=== PATIENT | male | born 1950 | race Caucasian/White ===

== ENCOUNTER → 2017-03-20 | Outpatient (CLI) | payer BC, OTHER ==
[~2017-03-20] MED LIST: ATOR-24; EZET10TA63; OXYC-106
--- NOTE | 2017-03-21 07:06 | PAP/PSG TECHNICIAN REPORT ---
[facility] Sales Service Supervisor Polysomnogram Report Study name: None Report date: 03/21/2017 Study date: 03/20/2017 Referring Physician: JULIANO LU III Name: Vesta LONGO Interpreting Physician: Marco A Howard M.D. Date of : 1950 Sales Service Supervisor: Dania Gutierrez PSGT. Sex: Male Age: 67 StudyType: PSG Weight: 189 lbs Height: 67 years, Height 5' 9.5" Neck Circum:17 inches BMI: 27.51 Medications: ZOLOFT 50 MG, LIPITOR 80 MG, VIT-D, RANITIDINE HCL 75 MG, ASPIRIN 81 MG, VIT.-B-12, FISH OIL, FLAX SEED OIL, MULTI-VIT. Patient History 66 YR. OLD MALE PRESENTS TO THE SLEEP LAB FOR A SPLIT NIGHT STUDY.THE FOLLOWING HAS BEEN PROVIDED: LESLEY VS REM SLEEP DISORDER VS PLMS, AND ANXIETY. ESS=16, NECK = 17 INCHES Parameters Monitored NPSG: E1-M2, E2-M1, Fp1-M2, Fp2-M1, F3-M2, F4-M2, F4-M1, C3-M2, C4-M2, C4-M1, O1-M2, O2-M2, O2-M1, T3-M2, T4-M1, P3-M2, P4-M1, CHIN1, CHIN2, HR, EKG, Legs, PFLOW, SNOR, FLOW, CFLOW, Tidal Volume, THOR, ABDO, SpO2, PLTH, CPRESS, ETCO2 Wave, ETCO2, pH Sleep Architecture Sleep Stages Time at Lights Off 10:57:55 PM STAGES Time (min.) TST (%) Time at Lights On 5:30:55 AM Wake 63.5 -- Total Recording Time (TRT) 393.00 min. N1 27.5 8 Total Sleep Period (TSP) 389.5 min. N2 278.5 85 Total Sleep Time (TST) 328.5min. N3 0.0 0 Awake Time 64.0 min. REM 22.5 7 Wake after Sleep Onset 61.0 min. Sleep Efficiency (SE) 84 % Sleep Onset Latency (FLAKITA) 3.5 min. Number of Stage 1 Shifts None Awakenings 16 Stage Changes 56 Number of REM periods 6 REM 22.5 7 REM Latency 228.0 min. NREM 306.0 93 Body Position Analysis Supine Right Left Side Prone Vertical Total Sleep Time (min.) 203.7 54.4 105.6 159.96 0.0 0.0 Total Sleep Time (%) 51% 17% 32% 49 0% N/A% Total Sleep Time REM (min.) 2.5 17.5 2.5 None 0.0 0.0 Total Sleep Time NREM (min.) 166.0 36.9 103.1 None 0.0 0.0 Intermittent Wake (min.) 35.2 14.7 13.6 None 0.0 0.0 Total Sleep Period (%) 52% None None None None None Arousals Myoclonus (PLM) * Events Count Index Events Count Index Spontaneous 143 26 Events Awake (PLMW) 1 0.9 Respiratory 3 0.5 Events Asleep w/ Arousal (PLMA) 134 24.5 PLM 134 24 Events Asleep w/o Arousal (PLMS) 686 125.3 Snoring 17 3 Total Asleep 820 149.8 Total 297 54 Total 821 126 Respiratory Analysis * CA OA MA CH H RERA Total Count 0 0 0 0 5 23 5 Index 0.0 0.0 0.0 0 0.9 4 5.1 Mean Duration 0.0 0.0 0.0 0.00 13.3 15.4 15.0 Longest Duration 0.0 0.0 0.0 0.00 0.0 20.4 20.4 Respiratory Event Summary Total Supine ~Supine Right Left Prone REM NREM Apneas Count 0 0 0 0 0 N/A 0 0 Index 0.0 0 0 0.0 0.0 N/A 0 0 Hypopneas (4% Desat) Count 5 3 2 1 1 N/A 0 5 Index 0.9 1.1 1 1.1 0.6 N/A 0.0 1.0 Apneas & All Hypopneas Count 5 3 2 1 1 N/A 0 5 Index 0.9 1 1 1 1 N/A 0.0 1.0 Respiratory Events (Client Portfolio Manager+All Hyp+RERA) Count 5 7 21 4 17 N/A 0 5 Index 5.1 2 8 4.4 9.7 N/A 8.0 4.9 Respiratory Related Arousal Count 3 7 3 0 3 N/A 1 2 Index 0.5 0 1 0 2 N/A 3 0 Snoring Analysis Supine Right Left Prone REM NREM Total Snore duration 16.3 min Snores count 193 181 149 N/A 70 453 523 Snore mean duration 1.9 Sec Snores index 69 200 85 N/A 186.7 88.8 95.5 TST with snoring (%) 4.9% SpO2 Analysis Total REM NREM Awake <50% 0.0 min. 0.0 min. 0.0 min. 0.0 min. 51 - 60% 0.0 min. 0.0 min. 0.0 min. 0.0 min. 61 - 70% 0.0 min. 0.0 min. 0.0 min. 0.0 min. 71 - 80% 0.0 min. 0.0 min. 0.0 min. 0.0 min. 81 - 90% 0.7 min. 0.2 min. 0.3 min. 0.1 min. 91 - 100% 390.8 min. 22.3 min. 305.3 min. 63.3 min. Average 94 94 94 94 Minimum SpO2 90 90 90 90 Desaturation Event Index 1.8 10.7 1.6 0.0 # Desat. Events below 89% N/A N/A N/A N/A Time(%) with Saturation below 89% 0.0 0.0 0.0 0.0 Time(min.) with Saturation below 89% 0.0 0.0 0.0 0.0 Heart Rate Analysis End Tidal CO2 Analysis Min (bpm) Max (bpm) Average (bpm) TSP (mins) % of TSP Awake 45 68 50 Above 55 mmHg 0.0 0.0 NREM 30 70 49 50-55 mmHg 0.0 0.0 REM 46 58 49 45-50 mmHg 328.2 99.9 Overall 30 70 49 40-45 mmHg 0.0 0.0 35-40 mmHg 0.0 0.0 30-35 mmHg 0.0 0.0 Average ETCO2 0.0 Supplemental O2 Values Minimum O2 level: None Value Start Time End Time Sales Service Supervisor Comments PSG Study MR. Longo slept in the right, left, and supine positions. Cardiac arrhythmia and PLM's noted. No bruxism noted. Snoring was noted and scored as a 4 on a scale of 1 through 5. (0=no snoring, 5=snoring loud enough to be heard through a closed door or down the boo way) Mr. Longo awoke to use the restroom zero times during the night. Mr. Longo stated, I did not sleep as well as I do when I am in my own bed. The final report will be interpreted and signed by a sleep physician. The completed physician report will then be placed in the patient medical record. Pt. had fragmented sleep, many leg movements with arousals were displayed. Arm and leg movements seen in Rem. Pt. had a cardiac event starting in epic 753 through 756, PVC'S with a low heart rate was displayed. (see print outs in chart.) NO Yehuda's where done do to pt. removing his hearing aids. Therapy (cm H2O) 0 TIB (min.) 392.0 TST (min.) 328.5 Sleep Onset (min.) 3.5 REM Onset From Sleep (min.) 228.0 Sleep Efficiency % 84 Wakefulness (%) 16 Wakefulness (min.) 64.0 NREM 1 (%) 8 NREM 1 (min.) 27.5 NREM 2 (%) 85 NREM 2 (min.) 278.5 NREM 3 (%) 0 NREM 3 (min.) 0.0 REM (%) 7 REM (min.) 22.5 # Arousals 297 Arousal Index 54 # Snore 523 Snore Index 95.5 AHI 0.9 AHI Supine 1 AHI Non-Supine 1 NREM AHI 1.0 REM AHI 0.0 RDI 5.1 # Obstructive Apnea 0 # Central Apnea 0 # Mixed Apnea 0 # Hypopneas 5 RERAs 23 Total Respiratory Events 28 Time Below SpO2 89% (min.) 0.0 Mean NREM SpO2 (%) 94 Mean REM SpO2 (%) 94 Mean Sleep SpO2 (%) 94 Min NREM SpO2 (%) 90 Min REM SpO2 (%) 90 Position Supine (min.) 203.7 Position Non-supine (min.) 160.0 LM Index Sleep 149.8 LM Index NREM 147.3 LM Index REM 184.0 Mean Heart Rate (bpm) 49 Min Heart Rate (bpm) 30
--- NOTE | 2017-04-02 09:50 | POLYSOMNOGRAPH REPORT ---
REFERRING PERSON: Dr. John Howard. VICE PRESIDENT OF ENGINEERING: Reanna Gutierrez. Mr. Naylor is a 67-year-old male sent for a possible split night sleep study. He has dream enactment behaviors, periodic limb movements during sleep, some anxiety and possible obstructive sleep apnea. His [place] sleepiness scale score on the evening of this study is 16. BMI is 27.51. Following the technical and digital specifications of the [place] [employer] (AASM) a standard diagnostic polysomnogram was performed monitoring EEG, EOG, EMG (chin and leg deviations), oxygen saturation, body position, digital video, respiratory effort and airflow. The sleep Stage and event scoring was based on the AASM Manual for the Scoring of Sleep and Associated Events 2007 edition. Apneas are defined as a drop in the peak thermal sensor excursion by >90% of baseline for at least 10 seconds. Hypopneas were scored using the 4% oxygen desaturation rule (4A-Medic[employer]) and a decrease in the nasal pressure excursions by >30% of baseline for at least 10 seconds. Respiratory effort-related arousal (RERA's) is defined as a sequence of breaths lasting at least 10 seconds characterized by increasing respiratory effort or flattening of the nasal pressure waveform leading to an arousal from sleep when the sequence of breaths does not meet criteria for an apnea or hypopnea. Apnea Hypopnea index (AHI) is defined as the number of apneas and hypopneas occurring in an hour of sleep. Respiratory disturbance index (RDI) is defined as the number of apneas, hypopneas, and RERA's occurring in an hour of sleep. Mr. Naylor's total sleep period time was 389.5 minutes. Total sleep time was 328.5 minutes. Sleep efficiency was 84%. Latency to sleep onset was 3.5 minutes with wake after sleep onset of 61 minutes. Total non-REM sleep time was 306 minutes. He spent 8% of that time in N1 sleep, 85% in N2 sleep and no time in N3 sleep. REM latency was 228 minutes. Total REM sleep time was 22.5 minutes or 7% of total sleep time. There were 297 cortical arousals from sleep. 143 of these arousals were spontaneous, 3 were due to respiratory events, 134 were due to periodic limb movements and 17 were due to snoring. There were 820 periodic limb movements. Limb movement index was 149.8. Limb movement with arousal index was elevated at 24.5. There were no central obstructive or mixed apneas on this test. There were 5 hypopneas and 23 RERA. Apnea-hypopnea index was normal at 0.9. RDI was 5.1. This patient may have an element of upper airway resistance syndrome. There were 523 snoring events recorded. Total sleep time with snoring was 4.9%. Mean saturation was 94% with desaturations to 90%. Saturations were less than 89 for no time on this study. Loud snoring was heard by the coating technician on this test. PVCs were noted on EKG monitoring. Heart rates ranged from a low of 30 beats per minute to a high of 70 beats per minute during sleep. End-tidal CO2 data suggests that in the entire duration of this study, Mr. Evangelistas end-tidal CO2 was between 45 and 50 mmHg. IMPRESSION AND PLAN: A 67-year-old male without evidence of sleep apnea or nocturnal hypoxemia. He does not have bruxism or parasomnia noted. He does have periodic limb movements of sleep with an elevated arousal index. This patient may benefit from treatment of this periodic limb movements. This may improve his sleep quality and hypersomnia. Clinical correlation is needed. SUSANA
== END | disposition home or self-care (01) ==
LOC: C.NEUR 21:00
PROVIDERS: ATTEND Family Medicine
DX: F51.5 Nightmare disorder (principal); R06.83 Snoring; G47.10 Hypersomnia, unspecified; G25.81 Restless legs syndrome; G47.30 Sleep apnea, unspecified

== ENCOUNTER → 2017-12-17 | Outpatient (CLI) | payer OTHER ==
[~2017-12-17] MED LIST changes: -ATOR-24; +ATOR-24 PO; +CHOL1000 PO; +CYAN100073 PO; -EZET10TA63; +FLAX1CAP11 PO; +GADAVIST IV PRN; +MELA1TAB22 PO; +MULT-506 PO; +OMEG10007 PO; -OXYC-106; +RANITAB33 PO; +SERT50TA PO
--- NOTE | 2017-12-17 08:47 | DIAGNOSTIC IMAGING REPORT ---
PROSTATE MRI COMBO CLINICAL HISTORY: 67 years-old Male presenting with PROSTATE CANCER. Patient presents with increased PSA levels. History of prostate cancer with prostatectomy in 2006. TECHNIQUE: Multisequence, multiplanar MR imaging of the prostate was performed before and after the administration of intravenous contrast. Additional postprocessing was performed on a separate [employer] workstation by the radiologist for 3-D volumetric segmentation of the prostate and contouring of region(s) of interest (JUAN ANTONIO) for targeting. IV contrast: 8.5 mL. COMPARISON: None. FINDINGS: Exam is mildly motion degraded. Prostate: Surgically absent. No suspicious mass lesions, enhancement or restricted diffusion seen within the operative bed. Suspicious lesion(s) described below: No suspicious mass lesions identified. Seminal vesicles normal. Bladder: Bladder wall thickening likely indicating chronic outlet obstruction. Bowel: Diverticulosis of the sigmoid colon. Peritoneum: No free fluid in the pelvis. Lymph nodes: No lymphadenopathy in the visualized portion of the pelvis. Vasculature: Iliac vessels patent. Abdominal wall: Normal. Osseous structures: Normal bone marrow signal intensity. IMPRESSION: 1. Prior prostatectomy. No suspicious findings identified within the operative bed to suggest residual or recurrent disease. 2. No pelvic adenopathy identified. 3. Circumferential wall thickening of the bladder with trabeculation suggests sequela of chronic bladder outlet obstruction. 4. Sigmoid colon diverticulosis. Electronically signed by: Isaac Lopez M.D. 12/17/2017 8:46 AM Dictated Date/Time: 12/17/2017 8:33 AM
== END | disposition home or self-care (01) ==
LOC: C.MRIBC 06:46
PROVIDERS: ATTEND Physician Assistant Medical
DX: C61 Malignant neoplasm of prostate (principal); Z90.79 Acquired absence of other genital organ(s); K57.90 Diverticulosis of intestine, part unspecified, without perforation or abscess without bleeding

== ENCOUNTER 2022-10-03 08:36 | Inpatient (IN) ==
--- NOTE | 2022-08-27 20:52 | PAT Medication Instructions ---
Medication Instructions Date of Service August 27, 2022 Home Medications famotidine 20 mg tablet (Acid Honing Machine Set Up Operator (famotidine)) 20 mg PO BID psyllium husk (with sugar) 3.4 gram/7 gram oral powder (Daily Fiber (psyllium- sucrose)) 1 tbsp PO QAM ropinirole 0.5 mg tablet 0.5 mg PO HS aspirin 81 mg capsule 81 mg PO QAM atorvastatin 80 mg tablet 80 mg PO QAM cholecalciferol (vitamin D3) 25 mcg (1,000 unit) tablet (Vitamin D3) 25 mcg PO QAM cyanocobalamin (vitamin B-12) 2,500 mcg sublingual tablet (Vitamin B-12) 2,500 mcg sublingual QAM ezetimibe 10 mg tablet 10 mg PO QAM multivitamin 1 tab PO QAM omega-3 fatty acids-vitamin E 1,000 mg capsule 1 cap PO QAM sertraline 100 mg tablet 100 mg PO QAM ASK your prescriber and surgeon aspirin 81 mg capsule 81 mg PO QAM STOP taking 2 weeks before surgery (or as soon as possible if surgery is within 2 weeks) omega-3 fatty acids-vitamin E 1,000 mg capsule 1 cap PO QAM DO NOT take the morning of surgery psyllium husk (with sugar) 3.4 gram/7 gram oral powder (Daily Fiber (psyllium- sucrose)) 1 tbsp PO QAM cholecalciferol (vitamin D3) 25 mcg (1,000 unit) tablet (Vitamin D3) 25 mcg PO QAM cyanocobalamin (vitamin B-12) 2,500 mcg sublingual tablet (Vitamin B-12) 2,500 mcg sublingual QAM multivitamin 1 tab PO QAM Take morning of surgery With a small sip of water, OTHERWISE NOTHING TO EAT OR DRINK AFTER MIDNIGHT: famotidine 20 mg tablet (Acid Honing Machine Set Up Operator (famotidine)) 20 mg PO BID atorvastatin 80 mg tablet 80 mg PO QAM ezetimibe 10 mg tablet 10 mg PO QAM sertraline 100 mg tablet 100 mg PO QAM Take evening before surgery famotidine 20 mg tablet (Acid Honing Machine Set Up Operator (famotidine)) 20 mg PO BID ropinirole 0.5 mg tablet 0.5 mg PO HS Other Notes If you have any questions please call us at [phone] or [phone] or [phone] or [phone]
--- NOTE | 2022-09-02 13:40 | Anesthesiology Consultation ---
Date of Service September 02, 2022 Assessment & Plan (1) Encounter for pre-operative examination: Chart Review Chart Review: Acceptable Risk for Surgery (pending PCP clearance (09/13/22)) and Patient seen in Pre Admission Testing - Awaiting PCP clearance 09/13/22 Per PAT appt on 09/02/22, patient denies any recent travel or large group activities. Pt is vaccinated for Covid. Will leave to surgeon's discretion if preop Covid testing needed. Educated on importance of using Covid precautions one week prior to surgery History Surgery Operation Date: 10/03/22 10:05 Proposed Procedures p L3-S1 Decompression and Fusion, Spinal Cord Monitoring - [employer], Height/Weight Height: 5 ft 8 in Weight: 83.7 kg Allergies Allergy/AdvReac Type Severity Reaction Status Date / Time No Known Allergies Allergy Mild Verified 08/27/22 12:54 Medications Home Medications Medication Instructions Recorded Confirmed Last Taken famotidine 20 mg tablet (Acid 20 mg PO BID 10/23/21 08/27/22 Unknown Geriatric Nurse (famotidine)) psyllium husk (with sugar) 3.4 1 tbsp PO QAM 10/23/21 08/27/22 Unknown gram/7 gram oral powder (Daily Fiber (psyllium-sucrose)) ropinirole 0.5 mg tablet 0.5 mg PO HS 10/23/21 08/27/22 Unknown aspirin 81 mg capsule 81 mg PO QAM 08/27/22 08/27/22 Unknown atorvastatin 80 mg tablet 80 mg PO QAM 08/27/22 08/27/22 Unknown cholecalciferol (vitamin D3) 25 25 mcg PO QAM 08/27/22 08/27/22 Unknown mcg (1,000 unit) tablet (Vitamin D3) cyanocobalamin (vitamin B-12) 2,500 mcg sublingual QAM 08/27/22 08/27/22 Unknown 2,500 mcg sublingual tablet (Vitamin B-12) ezetimibe 10 mg tablet 10 mg PO QAM 08/27/22 08/27/22 Unknown multivitamin 1 tab PO QAM 08/27/22 08/27/22 Unknown omega-3 fatty acids-vitamin E 1 cap PO QAM 08/27/22 08/27/22 Unknown 1,000 mg capsule sertraline 100 mg tablet 100 mg PO QAM 08/27/22 08/27/22 Unknown Past Medical History Medical History Anxiety and depression GERD (gastroesophageal reflux disease) Well controlled and stable History of chronic back pain History of prostate cancer 2006, s/p prostatectomy S/p radiation tx. (38 treatments) (2018) History of restless legs syndrome Stable Hx of hearing loss Wears bilat. hearing aids Hyperlipemia Exercise / Class Metabolic Activity II 4-5 Yardwork/Stairs/Walk up hill (one flight of stairs - no chest pain or SOB ) Past Surgical History Surgical History History of back surgery upper back and neck C4-C7, 10/2016; lower back 11/1989 History of prostatectomy 12/2006 Hx of colonoscopy Hx of repair of left rotator cuff 10/2017 Hx of vasectomy Past Anesthesia History No Hx of Anesthesia Complications and No Family Hx of Anesthesia Complications History of PONV No Hx of PONV and No Hx of Motion Sickness Social History Smoking Status: Never smoker Do You Dip or Chew Tobacco: No Hx Alcohol Use: Yes Alcohol type: wine alcohol intake frequency: holidays/special occasions only Hx Substance Use: No substance use type: does not use Review of Systems Patient denies chest pain, shortness of breath, dyspnea on exertion, cough, wheezing, palpitations. No hx of seizures, stroke, OH, apnea/snoring. No hx of blood clots or blood transfusions Physical Exam Vital Signs VITALS BP 145/75 P 53 TEMP 97.8 SP02 97% RESP 16 Constitutional no acute distress ENMT Mouth: no TMJ clicking Thyromental Distance: > or= 3.5 Finger Breadths (3.5) Mallampati Class: I Missing molars Neck + limited neck extension (significant ) Respiratory normal respiratory effort; no respiratory distress Auscultation: lungs clear to auscultation bilaterally; no wheezes Cardiovascular Rate/Rhythm: regular rate and regular rhythm Heart Sounds: no murmur Vessels: no carotid bruit Musculoskeletal Spine: no pain with cervical ROM Extremities: extremities normal to inspection Psychiatric Orientation: alert Lab Results Anesthesia Preop Results Results Anesthesia Widget: WBC 6.38 K/ul (4.8-10.8) 09/02/22 Hgb 14.9 g/dl (14.0-18.0) 09/02/22 Hct 43.0 % (40.1-51.0) 09/02/22 Plt 278 K/uL (130-400) 09/02/22 Na 138 mmol/L (136-145) 09/02/22 K 3.9 mmol/L (3.5-5.1) 09/02/22 Cl 105 mmol/L (98-107) 09/02/22 CO2 27 mmol/L (21-32) 09/02/22 BUN 16 mg/dl (6-23) 09/02/22 Creat 1.03 mg/dl (0.6-1.4) 09/02/22 Glucose Level 86 mg/dl (70-99(Fasting)) 09/02/22 PT 11.0 Seconds (9.0-12.0) 09/02/22 PTT 30.2 Seconds (21.0-31.0) 09/02/22 INR 1.0 (0.9-1.1) 09/02/22 Urine Color Yellow 09/02/22 Urine Appearance Clear (Clear) 09/02/22 Urine pH 5.0 (4.5-7.5) 09/02/22 Urine Specific [place] 1.007 (1.000-1.030) 09/02/22 Urine Protein Negative (Negative) 09/02/22 Urine Glucose (UA) Negative (Negative) 09/02/22 Urine Ketones Negative (Negative) 09/02/22 Urine Blood Negative (Negative) 09/02/22 Urine Nitrite Negative (Negative) 09/02/22 Urine Bilirubin Negative (Negative) 09/02/22 Urine Urobilinogen Negative (Negative) 09/02/22 Urine Leukocyte Esterase Negative (Negative) 09/02/22 Blood Type A Positive 09/02/22 Antibody Screen NEGATIVE 09/02/22 Testing Electrocardiogram Date: 09/02/22 Findings: + SB @ (50bpm) Rightward axis Chest X-Ray Date: 09/02/22 Findings: + NAD COVID-19 Risk Screen Screening Information COVID-19 Screen Date: 09/02/22 Exposure 21 Days Family/Household +COVID Last 21 Days: No Exposure 10 Days Any COVID Exposure Last 10 Days: No Symptoms Last 10 Days Experienced COVID Sx Last 10 Days: No + COVID 0-90 Days COVID + in Last 0-90 Days: No Risk Plan COVID Risk Plan: No Risk Identified Patient Education COVID Preop Screening Education Complete: Yes
[~2022-10-03 08:36] MED LIST changes: +ACETAMINOPHEN 500 MG TAB PO SCH; -ATOR-24 PO; -CHOL1000 PO; -CYAN100073 PO; +CeleBREX 200 MG CAP PO SCH; -FLAX1CAP11 PO; +GABAPENTIN 300 MG CAP PO SCH; -GADAVIST IV PRN; +LR 15ML/HR IV SCH; -MELA1TAB22 PO; -MULT-506 PO; -OMEG10007 PO; -RANITAB33 PO; -SERT50TA PO; +ceFAZolin 2000MG 2,000 MG/15 ML SYR IV SCH
[2022-10-03] MEDS ORDERED: ROCURONIUM BROMIDE 10 MG/ML 5 ML VIAL IV ONE ×6 (09:11→12:36)
[2022-10-03] MEDS ORDERED: ONDANSETRON INJ 2 MG/ML 2 ML VIAL ONE (09:11)
[2022-10-03] MEDS ORDERED: DEXAMETHASONE SOD INJ 4 MG/ML VIAL ONE (09:11)
[2022-10-03] MEDS ORDERED: PROPOFOL IV EMULSION 10 MG/ML 20 ML VIAL IV ONE ×2 (09:11→11:50)
[2022-10-03] MEDS ORDERED: LIDOCAINE 2% MPF LOCAL 5 ML VIAL INFIL ONE (09:11)
--- NOTE | 2022-10-03 09:43 | History & Physical Bridge Note ---
Date of Service October 03, 2022 History & Physical Bridge Note I have examined the patient, reviewed the History & Physical and in the interval since the performance of the History & Physical I have noted the following changes of clinical significance: no changes noted
--- NOTE | 2022-10-03 09:44 | History & Physical Report ---
Date of Service October 03, 2022 Assessment & Plan (1) Neurogenic claudication due to lumbar spinal stenosis: Plan: L3-S1 decompression and fusion History of Present Illness Chief Complaint: Back and leg pain Primary Care Provider: Kyree Theodore MD This is a 72-year-old male who presents with current persistent back and leg pain. Failed extensive course of nonoperative care is here for surgical invention. Allergies Allergy/AdvReac Type Severity Reaction Status Date / Time No Known Allergies Allergy Mild Verified 10/03/22 09:18 Home Medications Medication Instructions Recorded Confirmed Type famotidine 20 mg tablet (Acid 20 mg PO BID 10/23/21 10/03/22 History Salesforce Specialist (famotidine)) psyllium husk (with sugar) 3.4 1 tbsp PO QAM 10/23/21 10/03/22 History gram/7 gram oral powder (Daily Fiber (psyllium-sucrose)) ropinirole 0.5 mg tablet 0.5 mg PO HS 10/23/21 10/03/22 History aspirin 81 mg capsule 81 mg PO QAM 08/27/22 10/03/22 History atorvastatin 80 mg tablet 80 mg PO QAM 08/27/22 10/03/22 History cholecalciferol (vitamin D3) 25 25 mcg PO QAM 08/27/22 10/03/22 History mcg (1,000 unit) tablet (Vitamin D3) cyanocobalamin (vitamin B-12) 2,500 mcg sublingual QAM 08/27/22 10/03/22 History 2,500 mcg sublingual tablet (Vitamin B-12) ezetimibe 10 mg tablet 10 mg PO QAM 08/27/22 10/03/22 History multivitamin 1 tab PO QAM 08/27/22 10/03/22 History omega-3 fatty acids-vitamin E 1 cap PO QAM 08/27/22 10/03/22 History 1,000 mg capsule sertraline 100 mg tablet 100 mg PO QAM 08/27/22 10/03/22 History Past Med/Surg History Medical History Anxiety and depression GERD (gastroesophageal reflux disease) Well controlled and stable History of chronic back pain History of prostate cancer 2007, s/p prostatectomy S/p radiation tx. (38 treatments) (2018) History of restless legs syndrome Stable Hx of hearing loss Wears bilat. hearing aids Hyperlipemia Surgical History History of back surgery upper back and neck C4-C7, 10/2016; lower back 11/1989 History of prostatectomy 12/2006 Hx of colonoscopy Hx of repair of left rotator cuff 10/2017 Hx of vasectomy Social History Smoking Status: Never smoker Second Hand Exposure: No; Do You Dip or Chew Tobacco: No; Tobacco Cessation Education Requested by Patient: No Hx Alcohol Use: Yes Alcohol type: wine Hx Substance Use: No Preferred Language: Malawian Communication Ability: Effective Shooter'S Helper Required: No Beliefs That Will Affect Care: None Current Living Situation: Spouse Other Information That Helps Us Care for You: No Feels Safe at Home: Yes Safety Concerns: Feels Safe At This Time Assistive Devices: Glasses and Hearing Aid - Bilateral Physical Exam Physical Exam: Patient is alert and oriented Heart regular rhythm Lungs clear Results & Data Results & Data ([facility]) Vital Signs (Past 12 Hours) Vital Signs Temp Pulse Resp BP Pulse Ox O2 Del Method 10/03/22 09:15 36.8 C 59 L 20 141/85 H 97 Room Air
[2022-10-03] MEDS ORDERED: fentaNYL citrate 100 MCG/2 ML VIAL IV PRN (09:46)
[2022-10-03] MEDS ORDERED: ATROPINE SULFATE 0.1 MG/ML 10ML SYR IV PRN (09:46)
[2022-10-03] MEDS ORDERED: ONDANSETRON INJ 2 MG/ML 2 ML VIAL IV PRN ×2 (09:46→15:25)
[2022-10-03] MEDS ORDERED: ePHEDrine sulfate 50 MG/ML AMP IV PRN (09:46)
[2022-10-03] MEDS ORDERED: ceFAZolin 330 MG/ML 1 GM VIAL ONE (09:55)
[2022-10-03] MEDS ORDERED: BUPIVACAINE/EPINEPHRINE 0.25% 1:200,000 30 ML VIAL ONE (09:56)
[2022-10-03] MEDS ORDERED: MIDAZOLAM HCL 1 MG/ML 2ML VIAL ONE (10:02)
[2022-10-03] MEDS ORDERED: fentaNYL citrate 100 MCG/2 ML VIAL ONE (10:02)
[2022-10-03] MEDS ORDERED: PHENYLEPHRINE HCL 10 MG/ML VIAL ONE (10:32)
[2022-10-03] MEDS ORDERED: FLOSEAL HEMOSTATIC MATRIX 10ML TOP ONE (10:51)
[2022-10-03] MEDS ORDERED: KETOROLAC 30 MG/ML VIAL ONE (12:06)
[2022-10-03] MEDS ORDERED: ARTIFICIAL TEARS OP OINT 3.5 GM TUBE ONE ×2 (12:06)
[2022-10-03] MEDS ORDERED: GLYCOPYRROLATE 0.2 MG/ML VIAL ONE ×2 (13:20)
--- NOTE | 2022-10-03 13:33 | Operative Report ---
Post Operative Report Pre & Post Diagnosis Operation Date: 10/03/22 10:05 Pre-Op Diagnosis: Lumbar spinal stenosis with neurogenic claudication and spondylolisthesis Post-Op Diagnosis: Same I identified the patient and participated in the time-out.: Yes Procedure Operation Date: 10/03/22 10:05 Actual Procedures #1 revision lumbar decompression bilateral medial facetectomies and foraminotomies L2-L3, L3-L4, L4-5 and L5-S1. #2 posterior spinal fusion L3-S1. #3 placement posterior segmental instrumentation L3-S1. #4 interbody fusion L3- L4, L4-5 and L5-S1. #5 placement of Spira 13 x 26 mm cage at L3-L4, 15 x 26 mm cage at L4-L5 and 11 x 26 mm cage at L5-S1. #6 placement locally harvested morselized autograft and posterior gutters. #7 placement of I factor combined with V toss interbody space and posterior lateral gutters. Surgeon Fareed Gaming, DO Soccer Commentator None Estimated Blood Loss 250 Findings Consistent with Post-Op Diagnosis Specimens None Indications This is a 72-year-old male who presents above-mentioned diagnosis after failing course of nonoperative care is here for the procedure. Description of Procedure Patient met with identified informed consent obtained. Patient was then taken to the operative suite underwent a patient placed in a prone position on the Jesus table on top Tang frame. All bony prominences well-padded eyes inspected to ensure no external pressure placed upon them. This point the lumbar spine was prepped and draped no sterile fashion. Sharp dissection with the assistance of Bovie cautery performed down to and exposing the remaining lamina transverse processes of L3-L4-L5 and sacral ala bilaterally. From caudal to cephalad fashion revision complete laminectomy of L5 L4 L3 and partial laminectomy of L2 was performed including bilateral medial facetectomies and foraminotomies addressing severe spinal stenosis. Pedicle screws were then placed in L3-L4-L5 and S1 levels bilaterally with assistance of fluoroscopy and appropriately sized leif placed. By way of a transforaminal approach and left complete discectomy of L5-S1 was performed endplates curetted to subcortical bleeding bone and 11 x 26 mm spiral cage filled with I factor tapped in position. Then proceeded to L4-L5 and again by way of a transfemoral approach and right complete discectomy performed endplates curetted to subcortically bone and a 15 x 26 mm spiral cage with I factor tapped in position. Lastly proceeded to L3-L4 and again by way of a transfemoral approach and right complete discectomy performed endplates curetted to subcortical any bone and a 13 x 26 mm spiral cage with I factor tapped in position. The rods were then locked in final position bilaterally. The transverse processes of L3-L4-L5 and sacral ala burred to subcortical bleeding bone. I factor model V testing locally harvested morselized autograft was placed in the posterior gutters. 15 round ALBERTO drain inserted. The incision was then closed with 1 Vicryl the fascia 2-0 Vicryl subcutaneously and 4 Monocryl for final skin closure. Steri-Strips dressings placed. Patient waken taken to PACU stable condition. Please note spinal cord monitoring was utilized throughout the procedure no changes noted. I attest to the content of the Intraoperative Record and any orders documented therein. Any exceptions are noted below.
--- NOTE | 2022-10-03 13:59 | Fluoroscopy Report ---
FL lumbar spine 2-3V CLINICAL HISTORY: L3-S1 DECOMPRESSION AND FUSION TECHNIQUE: 3 views were obtained with the C-arm in the OR with the above procedure. Total fluoroscopy time was 34 seconds. Radiation dose was 26.6 mGy. Comparison: None available at the time of this dictation. FINDINGS/IMPRESSION: Intraoperative images were obtained of decompression and fusion spanning L3-S1. Please correlate with intraoperative fluoroscopy and operative report. ACT 112: Negative or not required by law. Electronically signed by: Krunal Ashley M.D. 10/03/2022 1:58 PM
--- NOTE | 2022-10-03 15:13 | Anesthesiology Progress Note ---
Date of Service October 03, 2022 Anesthesia Post Procedure Vital Signs Vital Signs: Temp Pulse Resp BP Pulse Ox O2 Del Method O2 Flow Rate 10/03/22 14:00 68 12 104/87 99 Oxymask 6 10/03/22 14:40 83 20 90/52 L 95 Nasal Cannula 2 10/03/22 14:30 72 20 92/51 L 95 Nasal Cannula 2 10/03/22 14:20 97.7 F 65 20 94/52 L 96 Nasal Cannula 2 10/03/22 14:10 64 20 97/59 L 96 Oxymask 2 10/03/22 13:50 76 12 109/60 100 Oxymask 6 10/03/22 13:47 96.8 F L 83 12 90/61 L 100 Oxymask 6 10/03/22 09:15 98.2 F 59 L 20 141/85 H 97 Room Air Pain Intensity Lower Back: Pain Intensity: 2 Transfer of Care Handoff Completed per policy Notes Mental Status: alert / awake / arousable and participated in evaluation Patient Amnestic to Procedure: Yes Nausea / Vomiting: adequately controlled Pain: adequately controlled Airway Patency, RR, SpO2: stable & adequate BP & HR: stable & adequate Hydration State: stable & adequate Anesthetic Complications: no major complications apparent and Pt Satisfied with anesthetic care
[2022-10-03] MEDS ORDERED: ONDANSETRON 4 MG OD TAB PO PRN (15:25)
[2022-10-03] MEDS ORDERED: HYDROmorphone INJ 0.5 MG/0.5 ML SYR IV PRN (15:25)
[2022-10-03] MEDS ORDERED: LORazepam 0.5 MG TAB PO PRN (15:25)
[2022-10-03] MEDS ORDERED: METOCLOPRAMIDE HCL INJ 5 MG/ML 2 ML VIAL IV PRN (15:25)
[2022-10-03] MEDS ORDERED: DO NOT ADMINISTER PNEUMOCOCCAL VACCINE PRN (15:25)
[2022-10-03] MEDS ORDERED: NALOXONE HCL 0.4 MG/1 ML VIAL/CARP IV PRN (15:25)
[2022-10-03] MEDS ORDERED: LORazepam 2 MG/1 ML VIAL IV PRN (15:25)
[2022-10-03] MEDS ORDERED: DO NOT ADMINISTER FLU VACCINE PRN (15:25)
[2022-10-03] MEDS ORDERED: PROMETHAZINE HCL 12.5 MG in SODIUM CHLORIDE 0.9% 50 ML IV PRN (15:25)
[2022-10-03] MEDS ORDERED: MAGNESIUM HYDROXIDE SUSP 30 ML UDC PO PRN (15:25)
[2022-10-03] MEDS ORDERED: HYDROmorphone INJ 1 MG/ML SYRINGE IV PRN (15:25)
[2022-10-03] MEDS ORDERED: oxyCODONE HCL IR 5 MG TAB (IMMEDIATE RELEASE) PO PRN (15:25)
[2022-10-03] MEDS ORDERED: hydrOXYzine HCl 25 MG TAB PO PRN (15:25)
[2022-10-03] MEDS ORDERED: ALUMINUM/MAGNESIUM SUSP 30 ML UDC PO PRN (15:25)
[2022-10-03] MEDS ORDERED: bisacodyL 10 MG SUPP PR PRN (15:25)
[2022-10-03] MEDS ORDERED: diphenhydrAMINE Capsule 25 MG CAP PO PRN (15:25)
[2022-10-03] MEDS ORDERED: FAMOTIDINE 20 MG TAB PO PRN (15:25)
[2022-10-03] MEDS ORDERED: SOD PHOSPHATE/SOD BIPHOSPHATE ENEMA 132 ML BTL PR PRN (15:25)
[2022-10-03] MEDS ORDERED: ACETAMINOPHEN 1,000 MG/100 ML VIAL IV PRN (15:25)
[2022-10-03] MEDS: LACTATED RINGER'S 1,000 ML IV SCH (16:58)
--- NOTE | 2022-10-03 17:07 | Hospitalist Consultation ---
Date of Consultation October 03, 2022 Assessment & Plan (1) Neurogenic claudication due to lumbar spinal stenosis: S/P Lumbar decompression today Patient doing well Activity per Surgeon. Pain control Will check BMP and CBC in AM (2) Hyperlipemia: Continue home atorvastatin and ezetimibe (3) GERD (gastroesophageal reflux disease): Continue home pepcid (4) History of prostate cancer: S/p prostatectomy and radiation treatment Reports he is in remission DVT ppx - defer to surgeon History of Present Illness Reason for Consultation: Medical management Requesting Physician: Fareed Swenson Attending Physician: Fareed Gaming, History of Present Illness 72 year old man with history of prostate cancer status post treatment, hearing loss, dyslipidemia, GERD who presented for elective lumbar decompression. Patient reported he has been having symptoms for sometime. Reports occasional low back pain,usually sharp, worse in the morning, radiating to lower extremities especially on the right. Occasionally associated with lower extremity numbness Denied bladder or bowel incontinence. Patient currently reports mild surgical site pain Denied all other complains on ROS Family history notable for stroke in father Allergies Allergy/AdvReac Type Severity Reaction Status Date / Time No Known Allergies Allergy Mild Verified 10/03/22 09:18 Home Medications Medication Instructions Recorded Confirmed Type famotidine 20 mg tablet (Acid 20 mg PO BID 10/23/21 10/03/22 History Public Health Social Worker (famotidine)) psyllium husk (with sugar) 3.4 1 tbsp PO QAM 10/23/21 10/03/22 History gram/7 gram oral powder (Daily Fiber (psyllium-sucrose)) ropinirole 0.5 mg tablet 0.5 mg PO HS 10/23/21 10/03/22 History aspirin 81 mg capsule 81 mg PO QAM 08/27/22 10/03/22 History atorvastatin 80 mg tablet 80 mg PO QAM 08/27/22 10/03/22 History cholecalciferol (vitamin D3) 25 25 mcg PO QAM 08/27/22 10/03/22 History mcg (1,000 unit) tablet (Vitamin D3) cyanocobalamin (vitamin B-12) 2,500 mcg sublingual QAM 08/27/22 10/03/22 History 2,500 mcg sublingual tablet (Vitamin B-12) ezetimibe 10 mg tablet 10 mg PO QAM 08/27/22 10/03/22 History multivitamin 1 tab PO QAM 08/27/22 10/03/22 History omega-3 fatty acids-vitamin E 1 cap PO QAM 08/27/22 10/03/22 History 1,000 mg capsule sertraline 100 mg tablet 100 mg PO QAM 08/27/22 10/03/22 History oxycodone 5 mg tablet 5 mg PO Q6H PRN pain, severe #30 10/03/22 Rx tabs tramadol 50 mg tablet 50 mg PO Q6H PRN pain, moderate 10/03/22 Rx #30 tabs Patient History Medical History (Updated 10/03/22 @ 17:05 by Neisha Schultz MD) Anxiety and depression GERD (gastroesophageal reflux disease) Well controlled and stable History of chronic back pain History of prostate cancer 2006, s/p prostatectomy S/p radiation tx. (38 treatments) (2018) History of restless legs syndrome Stable Hx of hearing loss Wears bilat. hearing aids Hyperlipemia Surgical History History of back surgery upper back and neck C4-C7, 10/2016; lower back 11/1989 History of prostatectomy 12/2006 Hx of colonoscopy Hx of repair of left rotator cuff 10/2017 Hx of vasectomy Social History Smoking Status: Never smoker Second Hand Exposure: No; Do You Dip or Chew Tobacco: No; Tobacco Cessation Education Requested by Patient: No Hx Alcohol Use: Yes Alcohol type: wine Hx Substance Use: No Preferred Language: Telugu Communication Ability: Effective Returned Goods Receiving Clerk Required: No Beliefs That Will Affect Care: None Current Living Situation: Spouse Other Information That Helps Us Care for You: No Feels Safe at Home: Yes Safety Concerns: Feels Safe At This Time Assistive Devices: Glasses and Hearing Aid - Bilateral Review of Systems Ear, Nose, Mouth, Throat: + hearing loss (chronic) Respiratory: no cough, no dyspnea and no wheezing Cardiovascular: no chest pain, no dyspnea and no orthopnea Gastrointestinal: no abdominal pain, no nausea and no diarrhea/loose stools Genitourinary: no dysuria, no difficulty urinating or no urinary frequency Musculoskeletal: + back pain and + radicular pain Neurologic: no falls and no syncope Psychiatric: no depression and no anxiety Physical Exam Constitutional: + well hydrated; no acute distress Eyes: PERRL, conjunctivae normal, anicteric sclerae ENMT: external ear and nose normal, oropharynx normal Ears: + hearing impairment Respiratory: normal respiratory effort, lungs clear to auscultation Cardiovascular: Rate/Rhythm: regular rate and regular rhythm S1 S2 Gastrointestinal (Abdomen): normal bowel sounds, soft, nontender, no hepatosplenomegaly Neurologic: PERRL, EOMI, accommodation nl, no face palsy, no dysarthria Psychiatric: A+Ox3, euthymic affect Results & Data Results & Data ([facility]) Vital Signs (Past 12 Hours) Vital Signs Temp Pulse Pulse Resp BP Pulse Ox O2 Del Method 10/03/22 16:02 89 18 94/59 L 96 Nasal Cannula 10/03/22 15:25 88 18 101/66 98 Nasal Cannula 10/03/22 14:55 Nasal Cannula 10/03/22 14:55 36.5 C 85 18 90/49 L 96 Nasal Cannula 10/03/22 14:00 68 12 104/87 99 Oxymask 10/03/22 14:40 83 20 90/52 L 95 Nasal Cannula 10/03/22 14:30 72 20 92/51 L 95 Nasal Cannula 10/03/22 14:20 36.5 C 65 20 94/52 L 96 Nasal Cannula 10/03/22 14:10 64 20 97/59 L 96 Oxymask 10/03/22 13:50 76 12 109/60 100 Oxymask 10/03/22 13:47 36.0 C L 83 12 90/61 L 100 Oxymask 10/03/22 09:15 36.8 C 59 L 20 141/85 H 97 Room Air O2 Flow Rate 10/03/22 16:02 2 10/03/22 15:25 2 10/03/22 14:55 2 10/03/22 14:55 2 10/03/22 14:00 6 10/03/22 14:40 2 10/03/22 14:30 2 10/03/22 14:20 2 10/03/22 14:10 2 10/03/22 13:50 6 10/03/22 13:47 6 10/03/22 09:15 Laboratory Results Abnormal lab results 10/03/22 Range/Units 09:04 Crossmatch See Detail
[2022-10-03] MEDS: FAMOTIDINE 20 MG TAB PO SCH (19:29)
[2022-10-03] MEDS: DOCUSATE SODIUM/SENNA 50/8.6MG TAB PO SCH (19:30)
[2022-10-03] MEDS: rOPINIRole HCL 0.25 MG TABLET PO SCH (19:30)
[2022-10-03] MEDS: ACETAMINOPHEN 500 MG TAB PO PRN (19:33)
[2022-10-03] MEDS: ceFAZolin 2000MG 2,000 MG/15 ML SYR IV SCH (19:34)
[2022-10-04] MEDS: LACTATED RINGER'S 1,000 ML IV SCH (02:16)
[2022-10-04] MEDS: ceFAZolin 2000MG 2,000 MG/15 ML SYR IV SCH (04:02)
[2022-10-04] MEDS: POLYETHYLENE (MIRALAX) 17 GM PACK PO SCH ×3 (04:02→17:10)
[2022-10-04] MEDS: ACETAMINOPHEN 500 MG TAB PO PRN ×2 (04:58→17:10)
[2022-10-04] MEDS: CYANOCOBALAMIN (B-12) 2,500 MCG TABLET SL SCH (08:32)
[2022-10-04] MEDS: SERTRALINE HCL 100 MG TABLET PO SCH (08:32)
[2022-10-04] MEDS: MULTIVITAMIN TAB PO SCH (08:32)
[2022-10-04] MEDS: CHOLECALCIFEROL 1,000 UNITS 25 MCG TAB PO SCH (08:32)
[2022-10-04] MEDS: EZETIMIBE 10 MG TABLET PO SCH (08:32)
[2022-10-04] MEDS: FAMOTIDINE 20 MG TAB PO SCH ×2 (08:32→21:08)
[2022-10-04] MEDS: ASPIRIN 81 MG ECTAB PO SCH (08:33)
[2022-10-04] MEDS: ATORVASTATIN 40 MG TAB PO SCH (08:33)
[2022-10-04 09:28] LABS: Basophils # (auto) 0.02 K/uL (0-0.2); Basophils % (auto) 0.1 %; Eosinophils # (auto) 0.01 K/uL (0-0.50); Eosinophils % (auto) 0.1 %; Hemoglobin 11.6 g/dl (14.0-18.0); Immature Granulocytes # (auto) 0.06 K/uL (0.00-0.02); Immature Granulocytes % (auto) 0.4 %; Lymphocytes # (auto) 1.11 K/uL (1.2-3.4); Lymphocytes % (auto) 7.9 %; Mean Corpuscular Hemoglobin 31.4 pg (25.0-34.0); Mean Corpuscular Hgb Conc 34.1 g/dL (32.0-36.0); Mean Corpuscular Volume 91.9 fL (80.0-100.0); Mean Platelet Volume 9.7 fL (9.4-12.4); Monocytes # (auto) 1.35 K/uL (0.24-0.82); Monocytes % (auto) 9.6 %; Neutrophils % (auto) 81.9 %; Platelet Count 218 K/uL (130-400); RDW Coefficient of Variation 12.6 % (11.5-14.5); RDW Standard Deviation 42.7 fL (36.4-46.3); White Blood Count 14.05 K/ul (4.8-10.8)
--- NOTE | 2022-10-04 09:29 | Orthopedic Progress Note ---
Date of Service October 04, 2022 Assessment & Plan (1) Neurogenic claudication due to lumbar spinal stenosis: Plan: Stable continue physical therapy monitor his ALBERTO output anticipate discharge home in next few days. Admission and Anticipated Discharge Date Admission Date: October 03, 2022 Subjective Patient's back pain is controlled leg pain markedly improved Physical Exam Physical Exam: Patient is in the chair at the bedside is good strength t esting. Appears comfortable. Results & Data ([facility]) Vital Signs (Past 12 Hours) Vital Signs Temp Pulse Resp BP Pulse Ox O2 Del Method 10/04/22 06:28 36.8 C 56 L 16 116/56 L 96 Room Air 10/04/22 02:00 36.8 C 85 14 116/67 98 Room Air 10/03/22 21:56 36.9 C 82 16 104/62 95 Room Air
[2022-10-04 10:04] LABS: BUN Creatinine Ratio 22.8 (10-20); Calcium 8.1 mg/dl (8.5-10.1); Creatinine Clr Calc Pharmacy 77.3 ml/min; Est GFR (African American) 96.6 ml/min; Est GFR (Non-African American) 83.4 ml/min; Potassium 3.6 mmol/L (3.5-5.1)
--- NOTE | 2022-10-04 11:55 | Hospitalist Progress Note ---
Date of Service October 04, 2022 Assessment & Plan (1) Neurogenic claudication due to lumbar spinal stenosis: Plan: S/P Lumbar decompression today Patient doing well Activity per Surgeon. Pain controlled Hb is 11.6 (was 14.9 a month ago) Possibly due to operation + dilutional Will monitor (2) Hyperlipemia: Plan: Continue home atorvastatin and ezetimibe (3) GERD (gastroesophageal reflux disease): Plan: Continue home pepcid (4) History of prostate cancer: Plan: S/p prostatectomy and radiation treatment Reports he is in remission DVT ppx - defer to surgeon Admission and Anticipated Discharge Date Admission Date: October 03, 2022 Subjective Patient seen and examined Reports surgical site pain is well controlled Denied any nausea, vomiting, abd pain Yet to move his bowel Has been working with PT Denied any cough, chest pain, shortness of breath Physical Exam Constitutional: + well hydrated; no acute distress Eyes: PERRL, conjunctivae normal, anicteric sclerae ENMT: external ear and nose normal, oropharynx normal Ears: + hearing impairment Respiratory: normal respiratory effort, lungs clear to auscultation Cardiovascular: Rate/Rhythm: regular rate and regular rhythm S1 S2 Gastrointestinal (Abdomen): normal bowel sounds, soft, nontender, no hepatosplenomegaly Musculoskeletal: Clean surgical site dressing with drain in situ Neurologic: PERRL, EOMI, accommodation nl, no face palsy, no dysarthria Psychiatric: A+Ox3, euthymic affect Results & Data Results & Data ([facility]) Vital Signs (Past 12 Hours) Vital Signs Temp Pulse Resp BP Pulse Ox O2 Del Method 10/04/22 06:28 36.8 C 56 L 16 116/56 L 96 Room Air 10/04/22 02:00 36.8 C 85 14 116/67 98 Room Air Laboratory Results Abnormal lab results 10/03/22 10/04/22 10/04/22 Range/Units 09:04 08:38 08:38 WBC 14.05 H (4.8-10.8) K/ul RBC 3.70 L (4.63-6.08) M/uL Hgb 11.6 L (14.0-18.0) g/dl Hct 34.0 L (40.1-51.0) % Neut # (Auto) 11.50 H (1.4-6.5) K/uL Lymph # (Auto) 1.11 L (1.2-3.4) K/uL Sebastian # (Auto) 1.35 H (0.24-0.82) K/uL Immature Gran # (Auto) 0.06 H (0.00-0.02) K/uL Sodium 132 L (136-145) mmol/L BUN/Creatinine Ratio 22.8 H (10-20) Glucose 108 H (70-99(Fasting)) mg/dl Calcium 8.1 L (8.5-10.1) mg/dl Crossmatch See Detail
[2022-10-04] MEDS: rOPINIRole HCL 0.25 MG TABLET PO SCH (21:08)
[2022-10-04] MEDS: DOCUSATE SODIUM/SENNA 50/8.6MG TAB PO SCH (21:08)
[2022-10-05] MEDS: POLYETHYLENE (MIRALAX) 17 GM PACK PO SCH ×4 (00:10→17:54)
[2022-10-05] MEDS: MULTIVITAMIN TAB PO SCH (08:54)
[2022-10-05] MEDS: EZETIMIBE 10 MG TABLET PO SCH (08:54)
[2022-10-05] MEDS: ASPIRIN 81 MG ECTAB PO SCH (08:54)
[2022-10-05] MEDS: CYANOCOBALAMIN (B-12) 2,500 MCG TABLET SL SCH (08:54)
[2022-10-05] MEDS: CHOLECALCIFEROL 1,000 UNITS 25 MCG TAB PO SCH (08:54)
[2022-10-05] MEDS: SERTRALINE HCL 100 MG TABLET PO SCH (08:54)
[2022-10-05] MEDS: ATORVASTATIN 40 MG TAB PO SCH (08:54)
[2022-10-05] MEDS: FAMOTIDINE 20 MG TAB PO SCH ×2 (08:55→20:37)
[2022-10-05 09:20] LABS: Hematocrit (blood only) 32.1 % (40.1-51.0); Hemoglobin 10.9 g/dl (14.0-18.0); Mean Corpuscular Hemoglobin 31.4 pg (25.0-34.0); Mean Corpuscular Volume 92.5 fL (80.0-100.0); Mean Platelet Volume 9.6 fL (9.4-12.4); Platelet Count 199 K/uL (130-400); RDW Coefficient of Variation 12.6 % (11.5-14.5); RDW Standard Deviation 42.9 fL (36.4-46.3); Red Blood Count 3.47 M/uL (4.63-6.08); White Blood Count 8.94 K/ul (4.8-10.8)
--- NOTE | 2022-10-05 10:35 | Orthopedic Progress Note ---
Date of Service October 05, 2022 Assessment & Plan (1) Neurogenic claudication due to lumbar spinal stenosis: Plan: We will continue physical therapy monitor his ALBERTO output anticipate discharge home tomorrow. Admission and Anticipated Discharge Date Admission Date: October 03, 2022 Subjective Patient's back pain is controlled leg pain markedly improved Physical Exam Physical Exam: On exam patient is sitting up at bedside. Is good strength testing. Appears comfortable. Results & Data ([facility]) Vital Signs (Past 12 Hours) Vital Signs Temp Pulse Resp BP Pulse Ox O2 Del Method 10/05/22 07:35 36.8 C 58 L 16 96/60 L 98 Room Air
[2022-10-05] MEDS: traMADol HCL 50 MG TABLET PO PRN ×2 (12:51→20:36)
--- NOTE | 2022-10-05 13:38 | Hospitalist Progress Note ---
Date of Service October 05, 2022 Assessment & Plan (1) Neurogenic claudication due to lumbar spinal stenosis: Plan: S/P Lumbar decompression on 10/03/22 Patient doing well Activity per Surgeon. Pain controlled Hb is 10.9 (was 14.9 a month ago) Post op anemia. Likely related to surgery + dilutional Will monitor (2) Hyperlipemia: Plan: Continue home atorvastatin and ezetimibe (3) GERD (gastroesophageal reflux disease): Plan: Continue home pepcid (4) History of prostate cancer: Plan: S/p prostatectomy and radiation treatment Reports he is in remission DVT ppx - defer to surgeon Admission and Anticipated Discharge Date Admission Date: October 03, 2022 Physical Exam Constitutional: + well hydrated; no acute distress Eyes: PERRL, conjunctivae normal, anicteric sclerae ENMT: external ear and nose normal, oropharynx normal Ears: + hearing impairment Respiratory: normal respiratory effort, lungs clear to auscultation Cardiovascular: Rate/Rhythm: regular rate and regular rhythm Gastrointestinal (Abdomen): normal bowel sounds, soft, nontender, no hepatosplenomegaly Neurologic: PERRL, EOMI, accommodation nl, no face palsy, no dysarthria Psychiatric: A+Ox3, euthymic affect Results & Data Results & Data ([facility]) Vital Signs (Past 12 Hours) Vital Signs Temp Pulse Resp BP Pulse Ox O2 Del Method 10/05/22 09:00 Room Air 10/05/22 07:35 36.8 C 58 L 16 96/60 L 98 Room Air Laboratory Results Abnormal lab results 10/05/22 Range/Units 08:35 RBC 3.47 L (4.63-6.08) M/uL Hgb 10.9 L (14.0-18.0) g/dl Hct 32.1 L (40.1-51.0) %
[2022-10-05] MEDS: DOCUSATE SODIUM/SENNA 50/8.6MG TAB PO SCH (20:37)
[2022-10-05] MEDS: rOPINIRole HCL 0.25 MG TABLET PO SCH (20:37)
[2022-10-06] MEDS: POLYETHYLENE (MIRALAX) 17 GM PACK PO SCH ×2 (00:28→06:23)
[2022-10-06 06:14] LABS: Hematocrit (blood only) 30.9 % (40.1-51.0); Hemoglobin 10.5 g/dl (14.0-18.0); Mean Corpuscular Hemoglobin 31.3 pg (25.0-34.0); Mean Platelet Volume 9.4 fL (9.4-12.4); Platelet Count 201 K/uL (130-400); RDW Coefficient of Variation 12.6 % (11.5-14.5); RDW Standard Deviation 42.3 fL (36.4-46.3); Red Blood Count 3.36 M/uL (4.63-6.08); White Blood Count 8.39 K/ul (4.8-10.8)
[2022-10-06] MEDS: traMADol HCL 50 MG TABLET PO PRN ×2 (06:26→11:54)
[2022-10-06 07:30] VITALS: BP 126/74; PULSE 61; TEMP 98.1; O2SAT 95
[2022-10-06] MEDS: FAMOTIDINE 20 MG TAB PO SCH (09:39)
[2022-10-06] MEDS: MULTIVITAMIN TAB PO SCH (09:39)
[2022-10-06] MEDS: EZETIMIBE 10 MG TABLET PO SCH (09:39)
[2022-10-06] MEDS: ATORVASTATIN 40 MG TAB PO SCH (09:39)
[2022-10-06] MEDS: CHOLECALCIFEROL 1,000 UNITS 25 MCG TAB PO SCH (09:39)
[2022-10-06] MEDS: ASPIRIN 81 MG ECTAB PO SCH (09:39)
[2022-10-06] MEDS: CYANOCOBALAMIN (B-12) 2,500 MCG TABLET SL SCH (09:39)
[2022-10-06] MEDS: SERTRALINE HCL 100 MG TABLET PO SCH (09:39)
--- NOTE | 2022-10-06 10:16 | Discharge Summary ---
Date of Service October 06, 2022 Principal Diagnosis Lumbar spinal stenosis with neurogenic claudication Discharge Data Allergies Allergy/AdvReac Type Severity Reaction Status Date / Time No Known Allergies Allergy Mild Verified 10/03/22 09:18 Consultations 10/03/22 15:25 Consult Hospitalist Routine Procedures Performed Operation Date: 10/03/22 10:05 Actual Procedures p L3-S1 Decompression and Fusion, Spinal Cord Monitoring(Not Applicable) - Fareed Gaming DO Ordered Studies 10/03/22 10:05 [place] lumbar spine 2-3V Routine Hospital Course (1) Neurogenic claudication due to lumbar spinal stenosis: Patient underwent lumbar decompression fusion tolerated this well was taken to orthopedic for postop labor postop day 1 is up and ambulating Claus postop day #2 on postop day #3 ALBERTO drain had decreased probably. Excellent strength testing. Pain well controlled. Socially discharged home. Discharge orders and instructions found in the chart for further review. Total Time Total Time Spent Total Time Spent (In Minutes): 20 minutes Discharge Plan Discharge Items Patient Disposition: Home - Self-Care Reason For Visit: Spinal Stenosis, Lumbar Region without Neurogenic Discharge Diagnosis: Lumbar spinal stenosis with neurogenic claudication Activity: As commented below Non-emergency contact: Primary Care Provider Call non-emergency contact if: you have any medication questions Follow-up/Referrals: Kyree Theodore MD [Primary Care Provider] - Diet: Regular Addtl Attending Provider Instructions: ACTIVITY RECOMMENDATIONS: SELF CARE INSTRUCTIONS AFTER THORACIC/LUMBAR FUSIONS 1. You may walk to your tolerance. It is good exercise for your legs and back. Expect some back and intermittent leg aches and pains. 2. You may perform "counter-top" level activities (make a sandwich, jodie with a project, etc.). 3. No bending or lifting of more than 10 pounds or back twisting of any nature (roll like a log when turning in bed). 4. You may ride in a car for 20-30 minutes at a time. No driving until after your first visit with your doctor. 5. Frequent changes of position and restricting sitting to 30 minutes at a time will help limit the amount of back spasms and stiffness you may experience. 6. You may discontinue the use of ambulatory aids (cane, crutches, etc.) once your strength and confidence allow. 7. You may supervisor lathing the shower and let water strike your incision when you arrive home at least once daily. Do not take a tub bath, sit in a hot tub or go into a swimming pool until after your first recheck in the office. SPECIAL CARE INSTRUCTIONS: VERY IMPORTANT TO READ AND REVIEW A. Your surgical incision has been closed with a cosmetic suture under the skin that will dissolve in about 6 weeks. In 14 days, you can use a pair of clean scissors and cut the suture that is left outside of the skin at the ends of your incision. 1. The small skin tapes can be removed 7 days after surgery if they have not fallen off by that point. 2. You may keep the wound open to air as much as possible to promote healing after post-op day number 5 unless told otherwise by your doctor. 3. If you think the wound looks like it is becoming infected (redness or worsening drainage) and/or you are experiencing fever, chill or worsening back pain and muscle spasms, contact the office so that we may evaluate you as soon as possible. B. Complications are uncommon, but please contact us if you have any signs or symptoms of: 1. wound infection (fever higher than 102.5 degrees F, redness, separation of wound, drainage, or increasing pain from the incision) 2. blood clots in legs (pain, swelling, redness and warmth in legs) 3. urinary tract infection (fever higher than 102.5 degrees F, burning upon urination or increased frequency of urination) 4. nerve problems (inability to walk on your toes or heels, numbness, loss of bowel or bladder control) 5. any other symptoms that concern you C. Please call the office at if you have any concerns or questions about your operation or recovery. D. No smoking! Smoking drastically decreases the chance of a solid fusion. E. Do not take any anti-inflammatory medications (Indocin, Advil, Motrin, Aspir in, Naprosyn, etc.) as these may inhibit the chance of a solid fusion. Tylenol is okay to take for pain. MANAGING PAIN AFTER SPINAL SURGERY 1. Narcotic medication is intended for short-term use and will be provided for surgical pain. Surgical pain usually lasts for a period of 4-6 weeks. Narcotic medication includes Percocet, Vicodin, Darvocet, Tylenol #3 or Lortab. 2. Longer-term pain is more appropriately treated with non-narcotic medication such as Tylenol ES. 3. Muscle spasm is not appropriately treated with narcotics. Muscle relaxers such as Soma, Flexeril or Skelaxin can be used along with Tylenol ES. 4. Remember that we all live with some "aches and pains". This is not unusual or uncommon after an injury or as we get older. a. Back pain is expected and may include muscle spasms for 4 to 6 weeks after surgery. The pain should gradually improve. If the pain worsens for no apparent reason, please contact the office. b. Intermittent leg pain may also be experienced and should not be concerned about unless it worsens for no apparent reason. If so, please contact the office. 5. We will provide appropriate medication within the normal guidelines of their prescribed use. We will also be very cautious and aware of potential abuse and extended duration of patients' medication needs. a. Pain medications are for your comfort and to assist with sleep and rest so that the tissue can heal. They are not provided in order to return to normal activity and should not be used through the day. To do so or worsening pain at night can result from ongoing tissue damage and development of tolerance to the prescribed medicine. 6. Please allow 2-3 days to process refills. Prescriptions will not be mailed but must be picked up at the office. FOLLOW UP VISIT: Keep your scheduled follow-up appointment. Any questions, please call the office at . Pending Studies at Discharge: No Stand-Alone Forms: [facility] [employer], Smoking Cessation Medications and DC Order Prescriptions: New oxycodone 5 mg tablet 5 mg PO Q6H PRN (Reason: pain, severe) Qty: 30 0RF tramadol 50 mg tablet 50 mg PO Q6H PRN (Reason: pain, moderate) Qty: 30 0RF Continued ropinirole 0.5 mg tablet 0.5 mg PO HS famotidine [Acid Social Scientist (famotidine)] 20 mg tablet 20 mg PO BID Daily Fiber (psyllium-sucrose) 3.4 gram/7 gram powder 1 tbsp PO QAM multivitamin Tablet 1 tab PO QAM atorvastatin 80 mg Tablet 80 mg PO QAM cyanocobalamin (vitamin B-12) [Vitamin B-12] 2,500 mcg Tablet, Sublingual 2,500 mcg SUBLINGUAL QAM sertraline 100 mg Tablet 100 mg PO QAM ezetimibe 10 mg Tablet 10 mg PO QAM omega-3 fatty acids-vitamin E 1,000 mg Capsule 1 cap PO QAM cholecalciferol (vitamin D3) [Vitamin D3] 25 mcg (1,000 unit) Tablet 25 mcg PO QAM aspirin 81 mg Capsule 81 mg PO QAM Discharge Orders: Discharge Order (Routine); Ordered 10/06/22 Ordered By: Fareed Gaming Admission Data Admit Date/Time: 10/03/22 13:38 Attending Provider: Fareed Gaming Admit Provider: Fareed Gaming Primary Care Provider: Kyree Theodore Other Providers: Lisa Morales
--- NOTE | 2022-10-06 11:43 | Hospitalist Progress Note ---
Date of Service October 06, 2022 Assessment & Plan (1) Neurogenic claudication due to lumbar spinal stenosis: Plan: S/P Lumbar decompression on 10/03/22 Patient doing well Activity per Surgeon. Pain controlled Hb is 10.5 (was 14.9 a month ago) Post op anemia. Likely related to surgery (2) Hyperlipemia: Plan: Continue home atorvastatin and ezetimibe (3) GERD (gastroesophageal reflux disease): Plan: Continue home pepcid (4) History of prostate cancer: Plan: S/p prostatectomy and radiation treatment Reports he is in remission Admission and Anticipated Discharge Date Admission Date: October 03, 2022 Subjective Patient seen and examined Reports no complaints today Physical Exam Constitutional: + well hydrated; no acute distress Eyes: PERRL, conjunctivae normal, anicteric sclerae ENMT: external ear and nose normal, oropharynx normal Ears: + hearing impairment Respiratory: normal respiratory effort, lungs clear to auscultation Cardiovascular: Rate/Rhythm: regular rate and regular rhythm S1 S2 Gastrointestinal (Abdomen): normal bowel sounds, soft, nontender, no hepatosplenomegaly Musculoskeletal: Dressing over surgical site Neurologic: PERRL, EOMI, accommodation nl, no face palsy, no dysarthria Psychiatric: A+Ox3, euthymic affect Results & Data Results & Data ([facility]) Vital Signs (Past 12 Hours) Vital Signs Temp Pulse Pulse Resp BP Pulse Ox O2 Del Method 10/06/22 10:49 36.7 C 58 L 61 16 126/74 95 10/06/22 07:30 36.7 C 61 16 126/74 95 Room Air 10/06/22 00:29 36.8 C 62 18 122/69 93 Room Air Laboratory Results Abnormal lab results 10/06/22 Range/Units 05:46 RBC 3.36 L (4.63-6.08) M/uL Hgb 10.5 L (14.0-18.0) g/dl Hct 30.9 L (40.1-51.0) %
== END 2022-10-06 12:30 | disposition home or self-care (01) | DRG 455 ==
LOC: ASU 08:36 → 3E 13:38 → 3N 10-06 06:33

== ENCOUNTER 2023-09-09 05:56 | Inpatient (IN) ==
--- NOTE | 2023-08-19 09:59 | PAT Medication Instructions ---
Medication Instructions Date of Service August 19, 2023 Home Medications famotidine 20 mg tablet (Acid Clinic Lpn (famotidine)) 20 mg PO QAM psyllium husk (with sugar) 3.4 gram/7 gram oral powder (Daily Fiber (psyllium- sucrose)) 1 tbsp PO QAM ropinirole 0.5 mg tablet 0.5 mg PO QPM aspirin 81 mg capsule 81 mg PO QAM atorvastatin 80 mg tablet 80 mg PO QAM cholecalciferol (vitamin D3) 25 mcg (1,000 unit) tablet (Vitamin D3) 25 mcg PO QAM cyanocobalamin (vitamin B-12) 2,500 mcg sublingual tablet (Vitamin B-12) 2,500 mcg sublingual QAM ezetimibe 10 mg tablet 10 mg PO QAM multivitamin 1 tab PO QAM omega-3 fatty acids-vitamin E 1,000 mg capsule 1 cap PO QAM sertraline 100 mg tablet 100 mg PO QAM ropinirole 0.5 mg tablet 1 mg PO HS ASK your prescriber and surgeon aspirin 81 mg capsule 81 mg PO QAM STOP taking 2 weeks before surgery omega-3 fatty acids-vitamin E 1,000 mg capsule 1 cap PO QAM DO NOT take the morning of surgery psyllium husk (with sugar) 3.4 gram/7 gram oral powder (Daily Fiber (psyllium- sucrose)) 1 tbsp PO QAM cholecalciferol (vitamin D3) 25 mcg (1,000 unit) tablet (Vitamin D3) 25 mcg PO QAM cyanocobalamin (vitamin B-12) 2,500 mcg sublingual tablet (Vitamin B-12) 2,500 mcg sublingual QAM multivitamin 1 tab PO QAM Take morning of surgery With a small sip of water, OTHERWISE NOTHING TO EAT OR DRINK AFTER MIDNIGHT: famotidine 20 mg tablet (Acid Clinic Lpn (famotidine)) 20 mg PO QAM atorvastatin 80 mg tablet 80 mg PO QAM ezetimibe 10 mg tablet 10 mg PO QAM sertraline 100 mg tablet 100 mg PO QAM Take evening before surgery ropinirole 0.5 mg tablet 0.5 mg PO QPM ropinirole 0.5 mg tablet 1 mg PO HS Other Notes If you have any questions please call us at [phone] or [phone] or [phone] or [phone]
--- NOTE | 2023-08-26 11:49 | Anesthesiology Consultation ---
Date of Service August 26, 2023 Assessment & Plan (1) Encounter for pre-operative examination: Chart Review Chart Review: Acceptable Risk for Surgery (pending PCP clearance ) and Patient seen in Pre Admission Testing - Awaiting PCP clearance scheduled 08/27/23 (S) (please send preop testing for review) Per PAT appt on 08/26/23, no recent illness/disease exposures, illness related symptoms, or recent illness/disease positive tests. Will leave to surgeon's discretion if preop Covid testing needed L3-S1 D&F 10/03/22= Done under [place] with Glidescope #4. ETT #7.5. Elective Glid escope due to limited cervical ROM x attempt/atraumatic Teaching & Discussion Pre-Anesthesia Teaching/Discussion Notes: Instructed NPO after midnight before surgery,except medications with 15 cc of water. Medication instructions provided according to the [facility] guidelines. History Surgery Operation Date: 09/09/23 12:25 Proposed Procedures p C3-C4 Anterior Cervical Discectomy and Fusion with Spinal Cord Monitoring, C4- C7 Hardware Removal - Fareed Gaming DO Height/Weight Height: 5 ft 8 in Weight: 80.3 kg Allergies Allergy/AdvReac Type Severity Reaction Status Date / Time No Known Allergies Allergy Mild Verified 08/19/23 09:13 Medications Home Medications Medication Instructions Recorded Confirmed Last Taken famotidine 20 mg tablet (Acid 20 mg PO QAM 10/23/21 08/19/23 10/03/22 05:00 Spiral Weaver (famotidine)) psyllium husk (with sugar) 3.4 1 tbsp PO QAM 10/23/21 08/19/23 10/02/22 09:00 gram/7 gram oral powder (Daily Fiber (psyllium-sucrose)) ropinirole 0.5 mg tablet 0.5 mg PO QPM 10/23/21 08/19/23 10/02/22 09:00 aspirin 81 mg capsule 81 mg PO QAM 08/27/22 08/19/23 10/03/22 05:00 atorvastatin 80 mg tablet 80 mg PO QAM 08/27/22 08/19/23 10/03/22 05:00 cholecalciferol (vitamin D3) 25 25 mcg PO QAM 08/27/22 08/19/23 10/02/22 09:00 mcg (1,000 unit) tablet (Vitamin D3) cyanocobalamin (vitamin B-12) 2,500 mcg sublingual QAM 08/27/22 08/19/23 10/02/22 09:00 2,500 mcg sublingual tablet (Vitamin B-12) ezetimibe 10 mg tablet 10 mg PO QAM 08/27/22 08/19/23 10/03/22 05:00 multivitamin 1 tab PO QAM 08/27/22 08/19/23 10/02/22 09:00 omega-3 fatty acids-vitamin E 1 cap PO QAM 08/27/22 08/19/23 09/26/22 1,000 mg capsule sertraline 100 mg tablet 100 mg PO QAM 08/27/22 08/19/23 10/03/22 05:00 ropinirole 0.5 mg tablet 1 mg PO HS 08/19/23 08/19/23 Unknown Past Medical History Medical History Arm numbness down bilateral arms and across the chest "most of the time" (reason for upcoming cervical surgery) Hx of hearing loss Wears bilat. hearing aids History of chronic back pain History of prostate cancer 2006, s/p prostatectomy S/p radiation tx. (38 treatments) (2018) Anxiety and depression History of restless legs syndrome Stable GERD (gastroesophageal reflux disease) Well controlled and stable Hyperlipemia Exercise / Class Metabolic Activity II 4-5 Yardwork/Stairs/Walk up hill (one flight of stairs - no chest pain or SOB ) Past Family History Family History Other No family history of adverse response to anesthesia Past Surgical History Surgical History History of cataract surgery bilateral S/P lumbar fusion L3-S1 decompression and fusion Hx of vasectomy Hx of repair of left rotator cuff 10/2017 History of back surgery upper back and neck C4-C7, 10/2016; lower back 11/1989 Hx of colonoscopy History of prostatectomy 12/2006 Past Anesthesia History No Hx of Anesthesia Complications and No Family Hx of Anesthesia Complications History of PONV No Hx of PONV and No Hx of Motion Sickness Social History Smoking Status: Never smoker Do You Dip or Chew Tobacco: No Hx Alcohol Use: Yes Alcohol type: wine alcohol intake frequency: holidays/special occasions only Hx Substance Use: No substance use type: does not use Review of Systems Patient denies chest pain, shortness of breath, dyspnea on exertion, cough, wheezing, palpitations. No hx of seizures, stroke, [place], apnea/snoring. No hx of blood clots or blood transfusions Physical Exam Vital Signs VITALS BP 136/78 P 48bpm (denies dizziness, lightheadedness, or syncope) TEMP 97.6 SP02 97% RESP 16 Constitutional no acute distress ENMT Mouth: no TMJ clicking Thyromental Distance: > or= 3.5 Finger Breadths (3.5) Mallampati Class: I Missing side teeth and molars Neck + limited neck extension (significant ) Respiratory normal respiratory effort; no respiratory distress Auscultation: lungs clear to auscultation bilaterally; no wheezes Cardiovascular Rate/Rhythm: regular rate and regular rhythm Heart Sounds: no murmur Vessels: no carotid bruit Occ extra beat Musculoskeletal Spine: + pain with cervical ROM Extremities: extremities normal to inspection Psychiatric Orientation: alert Lab Results Anesthesia Preop Results Results Anesthesia Widget: WBC 6.27 K/ul (4.8-10.8) 08/26/23 Hgb 14.6 g/dl (14.0-18.0) 08/26/23 Hct 43.7 % (42.0-52.0) 08/26/23 Plt 259 K/uL (130-400) 08/26/23 Na 135 mmol/L (136-145) L 08/26/23 K 4.3 mmol/L (3.5-5.1) 08/26/23 Cl 103 mmol/L (98-107) 08/26/23 CO2 30 mmol/L (21-32) 08/26/23 BUN 15 mg/dl (6-23) 08/26/23 Creat 0.84 mg/dl (0.6-1.4) 08/26/23 Glucose Level 91 mg/dl (70-99(Fasting)) 08/26/23 PT 11.2 Seconds (9.0-12.0) 08/26/23 PTT 29.4 Seconds (21.0-31.0) 08/26/23 INR 1.0 (0.9-1.1) 08/26/23 Urine Color Yellow 08/26/23 Urine Appearance Clear (Clear) 08/26/23 Urine pH 5.5 (4.5-7.5) 08/26/23 Urine Specific [place] 1.009 (1.000-1.030) 08/26/23 Urine Protein Negative (Negative) 08/26/23 Urine Glucose (UA) Negative (Negative) 08/26/23 Urine Ketones Negative (Negative) 08/26/23 Urine Blood Negative (Negative) 08/26/23 Urine Nitrite Negative (Negative) 08/26/23 Urine Bilirubin Negative (Negative) 08/26/23 Urine Urobilinogen Negative (Negative) 08/26/23 Urine Leukocyte Esterase Negative (Negative) 08/26/23 Blood Type A Positive 08/26/23 Antibody Screen NEGATIVE 08/26/23 Testing Electrocardiogram Date: 08/26/23 Findings: + SB @ (46bpm) Otherwise normal EKG per cardio Chest X-Ray Date: 08/26/23 FINDINGS: Cardiomediastinal and hilar silhouettes are within normal limits. No pneumothorax, pleural effusion, airspace consolidation or overt pulmonary edema. Mild retrocardiac opacities, likely atelectatic. Mild hyperinflation with diaphragmatic flattening. Degenerative changes of the shoulders and spine. Cervical spinal fusion hardware. IMPRESSION: No acute process
[2023-09-09] MEDS ORDERED: LR 15ML/HR IV SCH (06:00)
[2023-09-09] MEDS ORDERED: LR 60ML/HR IV SCH (06:00)
[2023-09-09] MEDS ORDERED: ACETAMINOPHEN 500 MG TAB PO SCH (06:00)
[2023-09-09] MEDS ORDERED: ceFAZolin 2000MG 2,000 MG/15 ML SYR IV SCH (06:00)
[2023-09-09] MEDS ORDERED: CeleBREX 200 MG CAP PO SCH (06:00)
[2023-09-09] MEDS ORDERED: GABAPENTIN 300 MG CAP PO SCH (06:00)
[2023-09-09] MEDS ORDERED: PROPOFOL IV EMULSION 10 MG/ML 20 ML VIAL IV ONE (06:57)
[2023-09-09] MEDS ORDERED: MIDAZOLAM HCL 1 MG/ML 2ML VIAL ONE (06:57)
[2023-09-09] MEDS ORDERED: ROCURONIUM BROMIDE 10 MG/ML 5 ML VIAL IV ONE (06:57)
[2023-09-09] MEDS ORDERED: DEXAMETHASONE SOD INJ 4 MG/ML VIAL ONE (06:57)
[2023-09-09] MEDS ORDERED: ONDANSETRON INJ 2 MG/ML 2 ML VIAL ONE (06:57)
[2023-09-09] MEDS ORDERED: LIDOCAINE 2% 2 ML VIAL/AMP(20MG/ML) INFIL ONE (06:57)
[2023-09-09] MEDS ORDERED: SUCCINYLCHOLINE CHLORIDE 20 MG/ML 10 ML VIAL IV ONE (06:57)
[2023-09-09] MEDS ORDERED: fentaNYL citrate PF 100 MCG/2 ML VIAL ONE ×2 (06:57→09:19)
[2023-09-09] MEDS ORDERED: ePHEDrine sulfate 50 MG/ML AMP IV PRN (07:12)
[2023-09-09] MEDS ORDERED: ATROPINE SULFATE 0.1 MG/ML 10ML SYR IV PRN (07:12)
[2023-09-09] MEDS ORDERED: PROMETHAZINE HCL 12.5 MG in SODIUM CHLORIDE 0.9% 50 ML IV PRN ×2 (07:12→13:36)
[2023-09-09] MEDS ORDERED: ceFAZolin 330 MG/ML 1 GM VIAL ONE (07:16)
[2023-09-09] MEDS ORDERED: FLOSEAL HEMOSTATIC MATRIX 10ML TOP ONE (07:29)
--- NOTE | 2023-09-09 07:45 | History & Physical Bridge Note ---
Date of Service September 09, 2023 History & Physical Bridge Note I have examined the patient, reviewed the History & Physical and in the interval since the performance of the History & Physical I have noted the following changes of clinical significance: no changes noted
--- NOTE | 2023-09-09 07:46 | History & Physical Report ---
Date of Service September 09, 2023 Assessment & Plan (1) Cervical stenosis of spinal canal: Plan: C3-C4 anterior cervical discectomy and fusion, C4-C7 hardware removal History of Present Illness Chief Complaint: Neck and arm pain Primary Care Provider: Kyree Theodore MD This is a 73-year-old male who presents with chronic persistent neck and arm pain after failing course of nonoperative care is here for surgical invention. Allergies Allergy/AdvReac Type Severity Reaction Status Date / Time No Known Allergies Allergy Mild Verified 08/19/23 09:13 Home Medications Medication Instructions Recorded Confirmed Type famotidine 20 mg tablet (Acid 20 mg PO QAM 10/23/21 09/09/23 History Building Economist (famotidine)) psyllium husk (with sugar) 3.4 1 tbsp PO QAM 10/23/21 09/09/23 History gram/7 gram oral powder (Daily Fiber (psyllium-sucrose)) ropinirole 0.5 mg tablet 0.5 mg PO QPM 10/23/21 09/09/23 History aspirin 81 mg capsule 81 mg PO QAM 08/27/22 09/09/23 History atorvastatin 80 mg tablet 80 mg PO QAM 08/27/22 09/09/23 History cholecalciferol (vitamin D3) 25 25 mcg PO QAM 08/27/22 09/09/23 History mcg (1,000 unit) tablet (Vitamin D3) cyanocobalamin (vitamin B-12) 2,500 mcg sublingual QAM 08/27/22 09/09/23 History 2,500 mcg sublingual tablet (Vitamin B-12) ezetimibe 10 mg tablet 10 mg PO QAM 08/27/22 09/09/23 History multivitamin 1 tab PO QAM 08/27/22 09/09/23 History omega-3 fatty acids-vitamin E 1 cap PO QAM 08/27/22 09/09/23 History 1,000 mg capsule sertraline 100 mg tablet 100 mg PO QAM 08/27/22 09/09/23 History ropinirole 0.5 mg tablet 2 mg PO HS 08/19/23 09/09/23 History Past Med/Surg History Medical History Arm numbness down bilateral arms and across the chest "most of the time" (reason for upcoming cervical surgery) Hx of hearing loss Wears bilat. hearing aids History of chronic back pain History of prostate cancer 2006, s/p prostatectomy S/p radiation tx. (38 treatments) (2018) Anxiety and depression History of restless legs syndrome Stable GERD (gastroesophageal reflux disease) Well controlled and stable Hyperlipemia Surgical History History of cataract surgery bilateral S/P lumbar fusion L3-S1 decompression and fusion Hx of vasectomy Hx of repair of left rotator cuff 10/2017 History of back surgery upper back and neck C4-C7, 10/2016; lower back 11/1989 Hx of colonoscopy History of prostatectomy 12/2006 Family History Other No family history of adverse response to anesthesia Social History Smoking Status: Never smoker Second Hand Exposure: No; Do You Dip or Chew Tobacco: No; Tobacco Cessation Education Requested by Patient: No Hx Alcohol Use: Yes Alcohol type: wine Hx Substance Use: No Preferred Language: Portuguese Communication Ability: Effective Litigation Coordinator Required: No Beliefs That Will Affect Care: None Current Living Situation: Spouse Other Information That Helps Us Care for You: No Feels Safe at Home: Yes Safety Concerns: Feels Safe At This Time Assistive Devices: Glasses and Hearing Aid - Bilateral Physical Exam Physical Exam: Patient is alert and oriented heart regular in rhythm lungs clear Results & Data Results & Data Vital Signs (Past 12 Hours) Vital Signs Temp Pulse Resp BP Pulse Ox O2 Del Method 09/09/23 06:49 36.4 C L 50 L 16 136/86 95 Room Air
[2023-09-09] MEDS ORDERED: ePHEDrine sulfate 50 MG/5 ML SYR ONE (08:33)
[2023-09-09] MEDS ORDERED: GLYCOPYRROLATE 0.2 MG/ML VIAL ONE (09:14)
[2023-09-09] MEDS ORDERED: NEOSTIGMINE METHYLSULFATE 1 MG/ML 10ML VIAL ONE (09:14)
--- NOTE | 2023-09-09 09:24 | Operative Report ---
Post Operative Report Pre & Post Diagnosis Operation Date: 09/09/23 07:45 Pre-Op Diagnosis: Spinal Stenosis, Cervical Region Post-Op Diagnosis: Spinal Stenosis, Cervical Region I identified the patient and participated in the time-out.: Yes Procedure Operation Date: 09/09/23 07:45 Actual Procedures #1 anterior cervical discectomy with bilateral foraminotomies C3-C4. #2 anterior cervical arthrodesis C3-C4. #3 placement of globus prevail cage 6 mm in height Surgeon Fareed Gaming, Rock Crusher Lydia Mckenzie Estimated Blood Loss 10 Findings Consistent with Post-Op Diagnosis Specimens None Indications This is a 73-year-old male well-known to me presents above-mentioned diagnosis with failing course of nonoperative care is here for surgical invention. Description of Procedure Patient met with identified informed consent obtained. Patient was then taken to the operative suite underwent ablation placed in supine position with his head in the Hunter mva reactor operator head. All bony promises well-padded eyes inspected to ensure no external pressure placed upon him. This point the anterior cervical spine was prepped and draped in a sterile fashion. The assistance of fluoroscopy identified the C3-C4 disc base and a transverse incision was placed along the right anterior aspect of the cervical spine overlying this region. Blunt dissection with the assistance of bipolar electrocautery to form down to expose the anterior cervical spine at C3-C4. Self-retaining retractors placed. Then performed a complete discectomy of C3-C4 out to the uncovertebral joints bilaterally. [place] distracting pins utilized to assist in visualization. Removed all posterior annular fibers longitudinal ligament bilateral foraminotomies performed. Endplates were then burred to subcortical bleeding bone and a 6 mm globus prevail interbody cage was tapped into position and screwed into place. The incision was then copiously irrigated explored to ensure no damage to surrounding structures or remaining bleeding. 10 round ALBERTO drain inserted. The incision was then closed with 2 Vicryl in the fascia and 4 Monocryl for final closure. Steri-Strips sterile dressing placed. Patient waken taken to recovery in stable condition. Please note spinal cord monitoring was utilized at the procedure no changes noted. Lastly Lydia Mckenzie was present at the entire surgery and all the patient positioning complex portion of the surgery and final skin closure. I attest to the content of the Intraoperative Record and any orders documented therein. Any exceptions are noted below.
[2023-09-09] MEDS: HYDROmorphone INJ 2 MG/ML SYR/VIAL IV PRN ×2 (10:29→10:44)
--- NOTE | 2023-09-09 11:07 | Anesthesiology Progress Note ---
Date of Service September 09, 2023 Anesthesia Post Procedure Vital Signs Vital Signs: Temp Pulse Pulse Resp BP Pulse Ox O2 Del Method 09/09/23 11:00 36.4 C L 69 12 125/74 97 Nasal Cannula 09/09/23 10:50 68 12 127/73 97 Nasal Cannula 09/09/23 10:40 63 12 125/74 98 Nasal Cannula 09/09/23 10:30 56 L 12 140/75 100 Nasal Cannula 09/09/23 10:20 57 L 16 139/73 100 Nasal Cannula 09/09/23 10:10 58 L 12 133/72 100 Nasal Cannula 09/09/23 10:00 65 13 149/76 H 99 Oxymask 09/09/23 09:50 56 L 14 123/66 99 Oxymask 09/09/23 09:41 36.0 C L 60 12 121/69 100 Oxymask 09/09/23 06:49 36.4 C L 50 L 16 136/86 95 Room Air O2 Flow Rate 09/09/23 11:00 2 09/09/23 10:50 2 09/09/23 10:40 2 09/09/23 10:30 2 09/09/23 10:20 2 09/09/23 10:10 2 09/09/23 10:00 10 09/09/23 09:50 10 09/09/23 09:41 10 09/09/23 06:49 Pain Intensity Neck: Pain Intensity: 2 Transfer of Care Handoff Completed per policy Notes Mental Status: alert / awake / arousable Patient Amnestic to Procedure: Yes Nausea / Vomiting: adequately controlled Pain: adequately controlled Airway Patency, RR, SpO2: stable & adequate BP & HR: stable & adequate Hydration State: stable & adequate Anesthetic Complications: no major complications apparent and Pt Satisfied with anesthetic care
[2023-09-09] MEDS ORDERED: dexAMETHasone 8 MG in SYRINGE 0 ML IV PRN (13:36)
[2023-09-09] MEDS ORDERED: ACETAMINOPHEN 1,000 MG/100 ML VIAL IV PRN (13:36)
[2023-09-09] MEDS ORDERED: ONDANSETRON 4 MG OD TAB PO PRN (13:36)
[2023-09-09] MEDS ORDERED: diphenhydrAMINE Capsule 25 MG CAP PO PRN (13:36)
[2023-09-09] MEDS ORDERED: traMADol HCL 50 MG TABLET PO PRN (13:36)
[2023-09-09] MEDS ORDERED: ONDANSETRON INJ 2 MG/ML 2 ML VIAL IV PRN (13:36)
[2023-09-09] MEDS ORDERED: HYDROmorphone INJ 0.5 MG/0.5 ML SYR IV PRN (13:36)
[2023-09-09] MEDS ORDERED: MAGNESIUM HYDROXIDE SUSP 30 ML UDC PO PRN (13:36)
[2023-09-09] MEDS ORDERED: LORazepam 0.5 MG TAB PO PRN (13:36)
[2023-09-09] MEDS ORDERED: NALOXONE HCL 0.4 MG/1 ML VIAL/CARP IV PRN (13:36)
[2023-09-09] MEDS ORDERED: bisacodyL 10 MG SUPP PR PRN (13:36)
[2023-09-09] MEDS ORDERED: LORazepam 0.5 MG in SYRINGE 0.25 ML IV PRN (13:36)
[2023-09-09] MEDS ORDERED: HYDROmorphone INJ 1 MG/ML SYRINGE IV PRN (13:36)
[2023-09-09] MEDS ORDERED: hydrOXYzine HCl 25 MG TAB PO PRN (13:36)
[2023-09-09] MEDS ORDERED: METOCLOPRAMIDE HCL INJ 5 MG/ML 2 ML VIAL IV PRN (13:36)
[2023-09-09] MEDS ORDERED: FAMOTIDINE 20 MG TAB PO PRN (13:36)
[2023-09-09] MEDS ORDERED: ACETAMINOPHEN 500 MG TAB PO PRN (13:36)
[2023-09-09] MEDS ORDERED: DO NOT ADMINISTER FLU VACCINE PRN (13:36)
[2023-09-09] MEDS ORDERED: SOD PHOSPHATE/SOD BIPHOSPHATE ENEMA 132 ML BTL PR PRN (13:36)
[2023-09-09] MEDS ORDERED: DO NOT ADMINISTER PNEUMOCOCCAL VACCINE PRN (13:36)
[2023-09-09] MEDS ORDERED: ALUMINUM/MAGNESIUM SUSP 30 ML UDC PO PRN (13:36)
[2023-09-09] MEDS ORDERED: RACEPINEPHRINE 2.25% NEBU SOLN 0.5 ML VIAL INH PRN (13:36)
--- NOTE | 2023-09-09 13:59 | Fluoroscopy Report ---
FL cervical 2-3V CLINICAL HISTORY: ACDF C3-C4 C4-C7 HW REMOVAL COMPARISON STUDY: None. FLUOROSCOPY TIME: 8 seconds. Ka, r: 1.22 mGy FLUOROSCOPIC IMAGES: 2 FINDINGS: Fluoroscopy was provided during C3-C4 anterior discectomy and fusion. Previous C4-C7 anteri or discectomy and fusion is noted. IMPRESSION: Fluoroscopy provided during C3-C4 anterior discectomy and fusion. ACT 112: Negative or not required by law. Electronically signed by: Abdifatah Saldana M.D. 09/09/2023 1:58 PM
[2023-09-09] MEDS: LACTATED RINGER'S 1,000 ML IV SCH (14:36)
[2023-09-09] MEDS: ceFAZolin 2000MG 2,000 MG/15 ML SYR IV SCH ×2 (15:45→23:16)
[2023-09-09] MEDS ORDERED: rOPINIRole HCL 1 MG TABLET PO SCH ×2 (16:00→21:00)
--- OUTSIDE RECORDS SUMMARY | 2023-09-09 17:03 | External Medical Summary | Summary of Care ---
Author Name Unknown Organization [facility] Address [address] [place] [address] Phone [phone] Care Team Providers Care Prop Setter Name Role Phone Arben ZARCO MD, Kyree Camargo Primary Care Provider [phone] Reason for Visit * Reason Onset Date Comments FYI 08/27/2023 Encounter Details Date Type Department Care Team (Late st Contact Info) Description 08/27/2023 Telephone Family Practice [facility] [place] [address] [facility] [place] [place] [address] Ekta Issa PA-C [address] [facility] [place] [place] [address] FYI Allergies No known active allergiesdocumented as of this encounter (statuses as of 08/27/2023) Medications Medication Sig Dispensed Refills Start Date End Date Status MULTIVITAMIN/MINERA L FORMULA TABS OR 1 TABLET DAILY 30 0 08/25/2001 Active FISH OIL 1000 MG PO CAPSIndications:Mix ed dyslipidemia bid 1 bottle 6 01/22/2006 Active VITAMIN B-12 2500 MCG SL SUBL 1 TABLET DAILY 30 Tab 11 11/07/2011 Active ASPIRIN 81 MG PO TABS one daily 0 Active VITAMIN D 1000 UNITS PO TABS 1 tab daily 0 Active famotidine 20 MG OR Take 0.5 Tablets by mouth in the morning. 0 Active Fiber Oral Powder Take by mouth . 0 Ac tive Ezetimibe 10 MG Oral Tablet (Zetia) Take 1 Tablet by mouth in the morning. 90 Tablet 3 04/18/2023 Active rOPINIRole HCl 0.5 MG Oral Tablet (Requip)Indications :Periodic limb movement disorder (PLMD) TAKE 1 TABLET BY MOUTH IN THE AFTERNOON AND TAKE 2 TABLETS BEFORE BEDTIME. 270 Tablet 1 01/21/2023 Active COVID-19 mRNA Vaccine 12 years and above Pfizer 30 MCG/0.3 ML IM SUSP Inject into a large muscle. 0.3 mL 0 07/28/2023 Active Sertraline HCl 100 MG Oral Tablet (Zoloft) TAKE ONE TABLET BY MOUTH EVERY MORNING 90 Tablet 1 08/02/2023 08/01/2024 Active Atorvastatin Calcium 80 MG Oral Tablet (Lipitor)Indication s:Dyslipidemia, goal LDL below 130 TAKE ONE TABLET BY MOUTH IN THE MORNING 90 Tablet 1 08/02/2023 08/01/2024 Active documented as of this encounter (statuses as of 08/27/2023) Active Problems Problem Noted Date Diagnosed Date Neurogenic claudication due to lumbar spinal viky nosis 08/27/2023 Gastroesophageal reflux disease 01/21/2023 Gastroesophageal reflux disease without esophagi tis 04/07/2020 History of prostate cancer 10/01/2019 Major depressive disorder, single episode, moder ate 09/10/2018 Disease of spinal cord 09/10/2018 Bilateral hearing loss 08/27/2017 Dyslipidemia 08/27/2017 Dream enactment behavior 02/20/2017 Status post cervical discectomy 02/18/2017 Multiple pigmented nevi 12/13/2014 ADVANCE DIRECTIVE INFORMATION 09/12/2005 Overview: No, Advance Directive brochure given to patient. documented as of this encounter (statuses as of 08/27/2023) Resolved Problems Problem Noted Date Diagnosed Date Resolved Date Actinic keratosis 12/13/2014 10/01/2019 Other seborrheic keratosis 12/13/2014 1 12/02/2018 Encounter for examination fo r normal comparison and control in clinical research program 03/03/2012 10/04/2013 Overview: Diagnosis changed due to Research Module. Go to Snapshot for study details. Dyslipidemia, goal LDL below 130 09/28/2009 08/27/2017 Overview: Per Lipid Taxonomy. MALIGN NEOPL PROSTATE 10/24/20062018 Subjective tinnitus 01/22/2006 03/04/20 18 Mixed dyslipidemia 12/24/200109/28/ 9 Overview: Per Lipid Taxonomy. Esophageal reflux 04/19/2022 Overview: Duplicated on pl documented as of this encounter (statuses as of 08/27/2023) Immunizations Name Administration Dates Next Due COVID-19 mRNA, LNP-s, No Pre serve, 2-Dose Series ([employer]) 07/25/2021,01/08/2021,12/12/2020 COVID-19, LNP-s, No Preserve , Cj-sucrose, Ages 12+ (Pfizer) 06/10/2022 COVID-19, MRNA-LNP, 23-24, P F, 30 MCG/0.3 mL, 12 YRS AND ABOVE, IM ([facility]-Comirnat) 08/13/2023 Pneumococcal Conjugate Vacc, 13 Valent (Prevnar) 08/21/2016 Pneumococcal Polysaccharide PPV23 (Pneumovax) 08/27/2017 RSV Vac., Bivalent, Perfusio n F, Pf,0.5 Ml (Abrysvo) 07/23/2023 SEASONAL INFLUENZA, PF, 6 M & Above, IM , (FLULAVAL or FLUZONE) 08/12/2018,08/27/2017 Season Influenza, Quad, PF, Adjuvanted, 65+ Yrs, IM (FLUAD) 07/19/2020 Seasonal Influenza, Quadriva lent Hd (Fluzone Hd) 07/12/2023,07/09/2022,07/31/2021 Seasonal Influenza, Quadriva lent, No Preserve, IM 08/21/2016,09/12/2015 Seasonal Influenza, Split, I IV3, With Preserve, Inj 07/06/2014,08/11/2013,10/02/2012,11/07,11/09/2010,08/15/2009,07/21/2008 ,08/31/2007,08/15/2006 Seasonal Influenza, Trivalen t, Adjuvanted, 65+ yrs 10/01/2019 TDAP (age 10 and older)(Boostrix) 04/20/2021 TDAP (age 11 and older)(Adacel) 08/31/2007 Varicella Zoster Vaccine (Adult) 08/25/2013 Zoster Vaccine Recombinant (Shingrix) 08/31/2019 ,05/10/2019 documented as of this encounter Social History Tobacco Use Types Packs/Day Years Used Date Smoking Tobacco: Never Smokeless Tobacco: Never Alcohol Use Standard Drinks/Week Comments Yes 0 (1 standard drink = 0.6 oz pur e alcohol) 1-2/year PHQ-2 Answer Date Recorded PHQ Adult Total Score 0 04/20/2021 Hunger Vital Sign Answer Date Recorded Within the past 12 months, y ou worried that your food would run out before you got the money to buy more. Never true 07/11/20 23 Within the past 12 months, t he food you bought just didn't last and you didn't have money to get more. Never true 07/11/2023 Sex and Gender Information Value Date Recorded Sex Assigned at Male 07/11/2023 3:22 PM EDT Gender Identity Male 07/11/2023 3:22 PM EDT Sexual Orientation Straight 07/11/2023 3: 22 PM EDT Job Start Date Occupation Industry Not on file Not on file Not on file documented as of this encounter Miscellaneous Notes * Telephone Encounter - Ekta Issa PA-C - 08/27/2023 12:50 PM EST FYI- spoke with noah Solitario recommend pt stop aspirin 7 days before surgery. documented in this encounter Plan of Treatment Upcoming Encounters Date Type Department Care Team (Late st Contact Info) Description 01/22/2024 9:20 AM EDT Office Visit Family Practice [facility] [place] [address] [facility] [place] [address] Kyree Theodore III, MD [address] [facility] [place] [address] 04/19/2024 10:40 AM EDT [facility] [address] [facility] [address] Peggy Triana PA-C [address] [facility] [place] [address] Scheduled Procedures Name Priority Associated Diagnoses Date/Ti me COLONOSCOPY FLEXIBLE PROXIMA L DIAGNOSTIC Recall Encounter for screening colonoscopy Health Maintenance Due Date Last Done Comments Cologuard 1996 Fecal Occult Blood Test 09/26/2002 09/26/2001 Sigmoidoscopy 10/08/2006 10/08/2001 Depression Screening 04/20/2022 04/20/2021 Colonoscopy 03/15/2026 03/15/2016, 12/2015, 02/20/2005 Colorectal Cancer Screening 03/15/2026 Lipid Panel 12/06/2027 12/06/2022, 03/14, 04/11/2021, Additional history exists DTaP,Tdap,and Td Vaccines (3 - Td or Tdap) 04/20/2031 04/20/2021, 08/31/2007 Pneumococcal Vaccine: 65+ Years Completed 08/27/2017, 08/21/2016 Zoster Vaccines Completed 08/31/2019, 04/13, 08/25/2013 Influenza Vaccine (FLU shot) Completed , 07/09/2022, 07/31/2021, Additional history exists COVID-19 Vaccine Completed 08/13/2023, , 07/25/2021, Additional history exists GARDASIL-HPV IMMUNIZATION SERIES Aged Out No longer eligible based on patient's age to complete this topic Hepatitis B Aged Out No longer eligi ble based on patient's age to complete this topic MENINGOCOCCAL (MENACTRA/MENVEO) Aged Out No longer eligible based on patient's age to complete this topic documented as of this encounter Medical Devices Not on filedocumented as of this encounter Care Teams Prop Setter Relationship Specialty Start Date End Date Kyree Theodore III, MD [address] [place] [address] PCP - General 05/27/1996 documented as of this encounter
--- OUTSIDE RECORDS SUMMARY | 2023-09-09 17:03 | External Medical Summary | Summary of Care ---
Author Name Unknown Organization [facility] Address [address] [place] [address] Phone [phone] Care Team Providers Care Metal Crafts Teacher Name Role Phone Arben ZARCO MD, John E Primary Care Provider [phone] Encounter Details Date Type Department Care Team (Late st Contact Info) Description 08/28/2023 Orders Only Family Practice [facility] [address] [facility] [place] [address] Kyree Theodore III, MD [address] [place] [address] Allergies No known active allergiesdocumented as of this encounter (statuses as of 08/28/2023) Medications Medication Sig Dispensed Refills Start Date [...] as of this encounter (statuses as of 08/28/2023) Active Problems Problem Noted Date Diagnosed Date [...] as of this encounter (statuses as of 08/28/2023) Resolved Problems Problem Noted Date Diagnosed Date [...] Subjective tinnitus 01/22/2006 03/04/20 18 Mixed dyslipidemia 12/24/2001 9 Overview: Per Lipid Taxonomy. Esophageal reflux 04/19/2022 Overview: Duplicated on pl documented as of this encounter (statuses as of 08/28/2023) Immunizations Name Administration Dates Next Due COVID-19 mRNA, LNP-s, No Pre serve, 2-Dose Series ([employer]) 07/25/2021,01/08/2021,12/12/2020 COVID-19, LNP-s, No Preserve , Cj-sucrose, Ages 12+ (Pfizer) 06/10/2022 COVID-19, MRNA-LNP, 23-24, P F, 30 MCG/0.3 mL, 12 YRS AND ABOVE, IM ([facility]Comirnat) 08/13/2023 Pneumococcal Conjugate Vacc, 13 Valent (Prevnar) [...] on file documented as of this encounter Plan of Treatment Upcoming Encounters Date Type Department Care Team (Late st Contact Info) Description 01/22/2024 9:20 AM EDT Office Visit Family Practice [facility] [address] [facility] [place] [address] Kyree Theodore III, MD [address] [facility] [place] [address] 04/19/2024 10:40 AM EDT Office Visit Dermatology [facility] [address] [place] [address] Peggy Triana PA-C [address] [place] [address] Scheduled Procedures Name Priority Associated Diagnoses Date/Ti [...] Not on filedocumented as of this encounter Procedures Procedure Name Priority Date/Time Associated Diagnosis Comments XR CHEST 2 VIEWS Routine 08/26/2023 documented in this encounter Results * XR CHEST 2 VIEWS (08/26/2023) Anatomical Region Laterality Modality Chest Other 08/26/2023 Fareed Gaming DO RADIOLOGY ( RAD GENERAL) documented in this encounter Care Teams Metal Crafts Teacher Relationship Specialty Start Date End Date Kyree Theodore III, MD [address] [place] [address] PCP - General 05/27/1996 documented as of this encounter
--- OUTSIDE RECORDS SUMMARY | 2023-09-09 17:03 | External Medical Summary | Summary of Care ---
Author Name Unknown Organization [facility] Address [address] [place] [address] Phone [phone] Care Team Providers Care Vocational Ed Instructor Name Role Phone Arben ZARCO MD, John E Primary Care Provider [phone] Encounter Details Date Type Department Care Team (Late st Contact Info) Description 08/28/2023 Orders Only Family Practice [facility] [address] [facility] [place] [address] Kyree Theodore III, MD 200 [place] [address] Allergies No known active allergiesdocumented as of [...] mRNA, LNP-s, No Pre serve, 2-Dose Series ([employer]) 07/25/2021,01/08/2021,12/12/2020 COVID-19, LNP-s, No Preserve , Cj-sucrose, [...] 9:20 AM EDT Office Visit Family Practice [facility] [address] [facility] [place] [address] Kyree Theodore III, MD [address] [facility] [place] [address] 04/19/2024 10:40 AM EDT Office Visit Dermatology [facility] [address] [place] [address] Peggy Triana PA-C [address] [place] [address] Scheduled Procedures Name Priority Associated Diagnoses Date/Ti [...] Procedure Name Priority Date/Time Associated Diagnosis Comments CHEMISTRY-OUTSIDE Routine 08/26/2023 documented in this encounter Results * CHEMISTRY-OUTSIDE (08/26/2023) Not all results display below - see scan for full detail OUTSIDE LAB (SEE SCANNED REPORT) Comment:SEE SCAN- UA, BMP, C BCD, PTINR CREATININE-OUTSID E LAB 0.84 0.6 - 1.4 MG/DL OUTSIDE LAB (SEE SCANNED REPORT) EGFR-OUTSIDE LAB 87.5 ML/MIN OUT SIDE LAB (SEE SCANNED REPORT) POTASSIUM-OUTSIDE LAB 4.3 3.5 - 5.1 MMOL/L OUTSIDE LAB (SEE SCANNED REPORT) GLUCOSE-OUTSIDE LAB 91 70 - 99 MG/DL OUTSIDE LAB (SEE SCANNED REPORT) HOURS FASTING OUTSID E LAB (SEE SCANNED REPORT) TRIGLYCERIDES-OUT SIDE LAB OUTSIDE LAB (SEE SCANNED REPORT) CHOLESTEROL-OUTSI DE LAB OUTSIDE LAB (SEE SCANNED REPORT) HDL-OUTSIDE LAB OUTS ALEJANDRA LAB (SEE SCANNED REPORT) CHOL/HDL RATIO-OUTSIDE LAB OUTSIDE LA B (SEE SCANNED REPORT) LDL (CALCULATED)-OUTS ALEJANDRA LAB OUTSIDE LAB (SEE SCANNED REPORT) LDL (DIRECT MEASURE)-OUTSIDE LAB OUTSIDE LAB (SEE SCANNED REPORT) HEMOGLOBIN, [id number] LAB OUTSIDE LAB (SEE SCANNED REPORT) PHOSPHORUS-OUTSID E LAB OUTSIDE LAB (SEE SCANNED REPORT) PTH-OUTSIDE LAB OUTS ALEJANDRA LAB (SEE SCANNED REPORT) MICROALBUMIN RATIO-OUTSIDE LAB OUTSIDE LA B (SEE SCANNED REPORT) PROTEIN, UA-OUTSIDE LAB OUTSIDE LAB (SEE SCANNED REPORT) HEMOGLOBIN-OUTSID E LAB 14.6 14.0 - 18.0 G/DL OUTSIDE LAB (SEE SCANNED REPORT) 08/26/2023 Fareed Gaming DO LABORATORY OUTSIDE LAB (SEE SCANNED REPORT) documented in this encounter Care Teams Vocational Ed Instructor Relationship Specialty Start Date End Date Kyree Theodore III, MD [address] [place] [address] PCP - General 05/27/1996 documented as of this encounter
--- OUTSIDE RECORDS SUMMARY | 2023-09-09 17:03 | External Medical Summary | Summary of Care ---
Author Name Unknown Organization [facility] Address [address] [place] [address] Phone [phone] Care Team Providers Care Boat Builder Name Role Phone Arben ZARCO MD, Kyree Camargo Primary Care Provider [phone] Reason for Visit * Reason Comments pre-op exam Encounter Details Date Type Department Care Team (Late st Contact Info) Description 08/27/2023 12:20 PM EST [facility] [place] [address] [facility] [place] [address] Ekta Issa PA-C [address] [facility] [place] [address] Neurogenic claudication due to lumbar spinal stenosis*; Pre-operative exam; Gastroesophageal reflux disease without esophagitis; Dyslipidemia; Major depressive disorder, single episode, moderate (HCC); Body mass index 26.0-26.9, adult Allergies No known active allergiesdocumented as of [...] mRNA, LNP-s, No Pre serve, 2-Dose Series ([employer]) 07/25/2021,01/08/2021,12/12/2020 COVID-19, LNP-s, No Preserve , Cj-sucrose, Ages 12+ (Pfizer) 06/10/2022 COVID-19, MRNA-LNP, 23-24, P F, 30 MCG/0.3 mL, 12 YRS AND ABOVE, IM ([employer]) 08/13/2023 Pneumococcal Conjugate Vacc, 13 Valent (Prevnar) [...] on file documented as of this encounter Last Filed Vital Signs Vital Sign Reading Time Taken Comments Blood Pressure 124/68 08/27/2023 11:52 AM EST Pulse 53 08/27/2023 11:52 AM EST Temperature 36.9 C (98.4 F) 08/27/2023 11:[address] Respiratory Rate 16 08/27/2023 11:52 AM EST Oxygen Saturation 98% 08/27/2023 11:52 AM EST Inhaled Oxygen Concentration - - Weight 79.9 kg (176 lb 1.3 oz) 08/27/2023 11:52 AM EST Height 172.7 cm (5' 8") 08/27/2023 11:52 AM EST Body Mass Index 26.77 08/27/2023 11:52 AM EST documented in this encounter Progress Notes * Ekta Issa PA-C - 08/27/2023 12:22 PM EST Images from the original note were not included. Pre-Operative Medical Evaluation Procedure Information Type of Surgery: lumbar surgery- "rods being placed in back" Referring Physician / Surgeon: Dr. Gaming/UADELE Date of procedure: 09/09/2023 Review of Systems: Constitutional ROS: No change in weight, No weakness, No fatigue, and No fevers, sweats, or chills Eye ROS: No recent significant change in vision, No eye pain, redness, discharge, No diplopia, No h/o cataracts, and No h/o glaucoma Ear ROS: No ear pain, No drainage, No tinnitus or vertigo, and No recent change in hearing Nose ROS: No history of frequent colds or sinusitis, No nasal stuffiness, No history of Hay Fever, and No significant epistaxis Mouth/Throat ROS: No bleeding gums, No thrush, or No sore throat Neck ROS: No lumps or masses, No swollen glands, No recent swelling in thyroid area, No significantpain in neck, and No h/o goiter or thyroid disease Pulmonary ROS: No cough, sputum, or hemoptysis, No wheezing, No rales, No shortness of breath, and No recent change in breathing Cardiovascular ROS: No chest pain, No shortness of breath, No dyspnea on exertion, No orthopnea, Noparoxysmal nocturnal dyspnea, No edema, No palpitations, and No syncope Gastrointestinal ROS: No abdominal pain, No change in bowel habits, No significant heartburn, No significant change in appetite, No nausea, vomiting, diarrhea, or constipation, No hematemesis, No blood in stools or black tarry stools, No abdominal bloating or early satiety, and No dysphagia Skin/Integumentary ROS: No edema, No rash, and No itching Neurologic ROS: Normal balance, No headaches, No seizures, and No weakness Psychiatric ROS: No depression, No anxiety, and No psychosis Medical History Problem List: Neurogenic claudication due to lumbar spinal stenosis (08/27/2023) Gastroesophageal reflux disease (01/21/2023) Gastroesophageal reflux disease without esophagitis (04/07/2020) History of prostate cancer (10/01/2019) Major depressive disorder, single episode, moderate (HCC) (09/10/2018) Disease of spinal cord (HCC) (09/10/2018) Bilateral hearing loss (08/27/2017) Dyslipidemia (08/27/2017) Dream enactment behavior (02/20/2017) Status post cervical discectomy (02/18/2017) Actinic keratosis (12/13/2014) Other seborrheic keratosis (12/13/2014) Multiple pigmented nevi (12/13/2014) Encounter for examination for normal comparison and control in clinical research program (03/03/2012) Dyslipidemia, goal LDL below 130 (09/28/2009) MALIGN NEOPL PROSTATE (10/24/2006) Subjective tinnitus (01/22/2006) ADVANCE DIRECTIVE INFORMATION (09/12/2005) Mixed dyslipidemia (12/24/2001) Esophageal reflux Current Medications Atorvastatin Calcium 80 MG Oral Tablet (Lipitor), TAKE ONE TABLET BY MOUTH IN THE MORNING Sertraline HCl 100 MG Oral Tablet (Zoloft), TAKE ONE TABLET BY MOUTH EVERY MORNING COVID-19 mRNA Vaccine 12 years and above Pfizer 30 MCG/0.3 ML IM SUSP, Inject into a large muscle. Abrysvo 120 MCG/0.5ML Intramuscular Solution Reconstituted (RSV Pre-Fusion F A&B Vac Rcmb), administer as directed Ezetimibe 10 MG Oral Tablet (Zetia), 10 mg, Oral, Daily(AM) rOPINIRole HCl 0.5 MG Oral Tablet (Requip), TAKE 1 TABLET BY MOUTH IN THE AFTERNOON AND TAKE 2 TABLETS BEFORE BEDTIME. Fiber Oral Powder, Take by mouth . famotidine 20 MG OR, 20 mg, Oral, Daily(AM) VITAMIN D 1000 UNITS PO TABS, 1 tab daily ASPIRIN 81 MG PO TABS, one daily VITAMIN B-12 2500 MCG SL SUBL, 1 TABLET DAILY FISH OIL 1000 MG PO CAPS, bid MULTIVITAMIN/MINERAL FORMULA TABS OR, 1 TABLET DAILY Allergies: Patient has no known allergies. Past Medical History: has a past medical history of Dyslipidemia, goal LDL below 160. Past Surgical History: has a past surgical history that includes removal of tonsils, under age 13; spine surgery procedurenec; repair sternum fracture; needle/punch biopsy of prostate (09/23/06); Prostatectomy, RetropubicRadical, Lap (12/24/06); and Colonoscopy, Diagnostic (Rectum) (03/15/2016). Social History: reports that he has never smoked. He has never used smokeless tobacco. He reports current alcohol use. He reports that he does not use drugs. Family History: family history includes Heart Disorder in his father; Hypertension in his mother; Lung Disorder in his father; No Past Hx in his sister and sister; Stroke in his father. Anesthesia History Type of Anesthesia: General Endotracheal Anesthesia reaction: No History of surgical complications: No Personal history of venous thromboembolic disease: No Physical Exam Vitals: 08/27/23 1152 Temp: 36.9 C (98.4 F) Pulse: 53 Resp: 16 SpO2: 98% BP: 124/68 BMI: 26.78 BP 124/68 | Pulse 53 | Temp 36.9 C (98.4 F) (Tympanic) | Resp 16 | Ht 1.727 m (5' 8") | Wt 79.9kg (176 lb 1.3 oz) | SpO2 98% | BMI 26.77 kg/m | BSA 1.96 m General: alert, healthy, and no distress Head: Normocephalic, No masses, lesions, tenderness or abnormalities Eye Exam: PERRLA, extraocular movements intact, conjunctiva are pink and non- injected, sclera clear Ears: External ears normal, Canals clear, TM's Normal Nose: no mucosal erythema, no mucosal edema, no purulent discharge Oropharynx: no exudate, no erythema, lips, buccal mucosa, and tongue normal, and mucous membranes are moist Neck: supple, no adenopathy, no bruits, thyroid normal size, non-tender, without nodularity Heart: regular rate & rhythm, no murmur, and no gallops Lungs: chest symmetric with normal AP diameter, no chest deformities noted, no chest wall tenderness, lungs clear to auscultation Abdomen: abdomen soft, non-tender, normal bowel sounds, and no masses or organomegaly Extremities: less than 2 second capillary refill, no joint deformities, effusion, or inflammation Neuro Exam: alert & oriented x 3 with fluent speech, no focal motor/sensory deficits, gait normal, reflexes normal and symmetric Skin: skin color, texture, turgor are normal, no rashes or significant lesions Labs reviewed and are significant for: not available for review at the time of the exam EKG by my review is significant for: not available for review at the time of the exam Surgical Risk Scoring Revised Cardiac Risk Index (RCRI) High-risk type of surgery (examples include vascular and any open intraperitoneal or intrathoracic procedures): 0=No History of ischemic heart disease (history of myocardial infarction or positive exercise test, current compliant of chest pain considered to be secondary to myocardia ischemia, use of nitrate therapy, or ECG with pathological Q waves; do not count prior coronary revascularization procedure unless one of the other criteria for ischemic heart disease is present): 0=No History of heart failure: 0=No History of cerebrovascular disease: 0=No Diabetes mellitus requiring treatment with insulin: 0=No Preoperative serum creatinine >2.0 mg/dL (177 micromol/L): 0=No Pt has revised cardiac index score of: No Risk Factors- 0.4% (95% CI: 0.1-0.8) Screening for Obstructive Sleep Apnea (STOP-BANG) Do you Snore loudly? 0=No Do you often feel Tired, Fatigued, or Sleep? 0=No Has anyone Observed you Stop Breathing or Choking/Gasping during sleep? 0=No Do you have or are you being treated for High Blood Pressure? 0=No BMI over 35? 0=No Age older than 50? 1=Yes Neck size large? (For males - 17 inches or larger, For females - 16 inches or larger) 0=No Male? 1=Yes Score 0-2:low risk LESLEY, 3-4: intermediate risk of LESLEY, 5-8: high risk LESLEY 2 Assessment and Plan Neurogenic claudication due to lumbar spinal stenosis Pre-operative exam Gastroesophageal reflux disease without esophagitis Dyslipidemia Major depressive disorder, single episode, moderate (HCC) Body mass index 26.0-26.9, adult Functional Assessment They are able to walk up a flight of stairs, walk two blocks at a moderate pace, do heavy house work like vacuuming, and grocery shop. The patient's functional status is good (greater than 4 METS). 1 MET: 4 METs: 4-10 METs: Can take care of self, such as eat, dress or use the toilet. Can walk to block or go up a flight of steps. Can do heavy house work. Surgical Risk Assessment Patient is low medical risk for the listed procedure. Medication adjustments: Stop aspirin 7 days prior to surgery Additional consults or testing: None documented in this encounter Nursing Notes * Deb Encarnacion LPN - 08/27/2023 11:52 AM EST Patient presents today for a pre op exam. He is going to have rods replaced in his spine. documented in this encounter Plan of Treatment Upcoming Encounters Date Type Department Care Team (Late st Contact Info) Description 01/22/2024 9:20 AM EDT Office Visit Family Practice [facility] [place] [address] [facility] [place] [address] Kyree Theodore III, MD [address] [facility] [place] [address] 04/19/2024 10:40 AM EDT Office Visit Dermatology [facility] [place] [address] [place] [address] Peggy Triana PA-C [address] [place] [address] Scheduled Procedures Name Priority Associated Diagnoses Date/Ti [...] Not on filedocumented as of this encounter Visit Diagnoses Diagnosis Neurogenic claudication due to lumbar spinal stenosis- Primary Spinal stenosis, lumbar region, with neurogenic claudication Pre-operative exam Preoperative examination, unspecified Gastroesophageal reflux disease without esophagitis Esophageal reflux Dyslipidemia Other and unspecified hyperlipidemia Major depressive disorder, single episode, moderate (HCC) Major depressive disorder, single episode, moderate Body mass index 26.0-26.9, adult Body Mass Index 26.0-26.9, adult documented in this encounter Care Teams Boat Builder Relationship Specialty Start Date End Date Kyree Theodore III, MD [address] [facility] [place] [address] PCP - General 05/27/1996 documented as of this encounter
--- OUTSIDE RECORDS SUMMARY | 2023-09-09 17:03 | External Medical Summary | Summary of Care ---
Author Name Unknown Organization [facility] Address [address] [place] [address] Phone [phone] Care Team Providers Care Photo Manager Name Role Phone Arben ZARCO MD, Kyree Camargo Primary Care Provider [phone] Encounter Details Date Type Department Care Team (Late st Contact Info) Description 09/02/2023 Population Health External Data Unspecified Department Allergies No known active allergiesdocumented as of this encounter (statuses as of 09/02/2023) Medications Medication Sig Dispensed Refills Start Date [...] as of this encounter (statuses as of 09/02/2023) Active Problems Problem Noted Date Diagnosed Date [...] as of this encounter (statuses as of 09/02/2023) Resolved Problems Problem Noted Date Diagnosed Date [...] as of this encounter (statuses as of 09/02/2023) Immunizations Name Administration Dates Next Due COVID-19 mRNA, LNP-s, No Pre serve, 2-Dose Series ([employer]) 07/25/2021,01/08/2021,12/12/2020 COVID-19, LNP-s, No Preserve , Cj-sucrose, Ages 12+ (Pfizer) 06/10/2022 COVID-19, MRNA-LNP, 23-24, P F, 30 MCG/0.3 mL, 12 YRS AND ABOVE, IM ([facility]) 08/13/2023 Pneumococcal Conjugate Vacc, 13 Valent (Prevnar) [...] 9:20 AM EDT Office Visit Family Practice [facility] [address] [facility] [address] Kyree Theodore III, MD [address] [facility] [place] [address] 04/19/2024 10:40 AM EDT Office Visit Dermatology [facility] [address] [place] [address] Peggy Triana PA-C [address] [place] [address] Scheduled Procedures Name Priority Associated Diagnoses Date/Ti [...] filedocumented as of this encounter Care Teams Photo Manager Relationship Specialty Start Date End Date Kyree Theodore III, MD [address] [facility] [place] [address] PCP - General 05/27/1996 documented as of this encounter
--- OUTSIDE RECORDS SUMMARY | 2023-09-09 17:03 | External Medical Summary | Summary of Care ---
Author Name Unknown Organization [facility] Address [address] [place] [address] Phone [phone] Care Team Providers Care Oceanic Sciences Professor Name Role Phone Arben ZARCO MD, Kyree Camargo Primary Care Provider [phone] Encounter Details Date Type Department Care Team (Late st Contact Info) Description 08/26/2023 Result Scan Unspecified Department <No scans attached> Allergies No known active allergiesdocumented as of [...] mRNA, LNP-s, No Pre serve, 2-Dose Series ([employer]) 07/25/2021,01/08/2021,12/12/2020 COVID-19, LNP-s, No Preserve , Cj-sucrose, [...] 9:20 AM EDT Office Visit [facility] Practice [facility] [address] [facility] [place] [address] Kyree Theodore III, MD 200 [place] [address] 04/19/2024 10:40 AM EDT Office Visit Dermatology [facility] [address] [place] [address] Peggy Triana PA-C [address] [place] [address] Scheduled Procedures Name Priority Associated Diagnoses Date/Ti [...] Procedure Name Priority Date/Time Associated Diagnosis Comments EKG SCANNED RESULT 08/26/2023 documented in this encounter Results * EKG SCANNED RESULT (08/26/2023) 08/26/2023 No Physician Data Unknown EKG documented in this encounter Care Teams Oceanic Sciences Professor Relationship Specialty Start Date End Date Kyree Theodore III, MD [address] [place] [address] PCP - General 05/27/1996 documented as of this encounter
--- NOTE | 2023-09-09 17:17 | Consultation ---
Date of Consultation September 09, 2023 Assessment & Plan (1) Cervical stenosis of spinal canal: (2) Hyperlipemia: (3) GERD (gastroesophageal reflux disease): (4) History of prostate cancer: Plan This is a 73-year-old male who has significant past medical history of hyperlipi demia, GERD, depression and history of prostate cancer who presents for elective cervical spine procedure by Dr. Gaming. Cervical stenosis of spinal canal s/p C3-C4 ACDF EBL 10ml pain/wound management per ortho activity/therapy as prescribed by ortho HLD chronic, stable continue statin RLS continue requip chronic, stable Hx of prostate Ca 2006, s/p surg, xrt DVT ppx: SCDS Dispo: per primary PCP: Dr. Theodore Full Code Thank you for this consultation. We will follow the patient with you during their hospital stay. You can reach a member of the [facility] Hospitalist Team 05/05 via hospitalist role on tiger text. Pt was seen and examined in collaboration with Dr. Carreon, please see addendum Supervising Physician Co-Signing Physician Notes Pt seen and examined by myself, Reanna Carreon MD on the day of service. Care was coordinated with Tona Walker PA-C. 73yoM with PMHx significant for HLD, GERD, depression and history of prostate cancer who is s/p anterior cervical discectomy with bilateral foraminotomies with ortho spine, Dr. Gaming. Pt seen while sitting in bed, brace on neck. Noted he had no acute concerns. Some hearing loss, RRR, breath sounds clear bilaterally. Monitor postop H/H with AM labs. Pain control, DVT prophylaxis per primary team Otherwise as above. History of Present Illness Requesting Physician: Dr. Gaming Reason for Consultation: post op med management Attending Physician: Fareed Gaming DO History of Present Illness This is a 73-year-old male who has significant past medical history of hyperlipidemia, GERD, depression and history of prostate cancer who presents for elective cervical spine procedure by Dr. Gaming. He underwent C3-C4 anterior cervical diskectomy and fusion. He tolerated the procedure well. Of significance he does have history of hyperlipidemia controlled on atorvastatin and Zetia. He also has history of depression with mood control on Zoloft. Postoperatively he feels well. He tolerated clear liquid diet for dinner. He denies any difficulty swallowing or shortness of breath. He does have a slight sore throat secondary to intubation. He denies any fever, chills, sweats, lightheadedness, dizziness, chest pain, shortness breath, nausea, vomit, abdominal pain, change in bowel or urinary habits. Meds reconciled at bedside. Allergies Allergy/AdvReac Type Severity Reaction Status Date / Time No Known Allergies Allergy Mild Verified 08/19/23 09:13 Home Medications Medication Instructions Recorded Confirmed Type famotidine 20 mg tablet (Acid 20 mg PO QAM 10/23/21 09/09/23 History Assurance Manager Insurance (famotidine)) psyllium husk (with sugar) 3.4 1 tbsp PO QAM 10/23/21 09/09/23 History gram/7 gram oral powder (Daily Fiber (psyllium-sucrose)) ropinirole 0.5 mg tablet 0.5 mg PO QPM 10/23/21 09/09/23 History aspirin 81 mg capsule 81 mg PO QAM 08/27/22 09/09/23 History atorvastatin 80 mg tablet 80 mg PO QAM 08/27/22 09/09/23 History cholecalciferol (vitamin D3) 25 25 mcg PO QAM 08/27/22 09/09/23 History mcg (1,000 unit) tablet (Vitamin D3) cyanocobalamin (vitamin B-12) 2,500 mcg sublingual QAM 08/27/22 09/09/23 History 2,500 mcg sublingual tablet (Vitamin B-12) ezetimibe 10 mg tablet 10 mg PO QAM 08/27/22 09/09/23 History multivitamin 1 tab PO QAM 08/27/22 09/09/23 History omega-3 fatty acids-vitamin E 1 cap PO QAM 08/27/22 09/09/23 History 1,000 mg capsule sertraline 100 mg tablet 100 mg PO QAM 08/27/22 09/09/23 History ropinirole 0.5 mg tablet 2 mg PO HS 08/19/23 09/09/23 History Patient History Medical History Arm numbness down bilateral arms and across the chest "most of the time" (reason for upcoming cervical surgery) Hx of hearing loss Wears bilat. hearing aids History of chronic back pain History of prostate cancer 2006, s/p prostatectomy S/p radiation tx. (38 treatments) (2018) Anxiety and depression History of restless legs syndrome Stable GERD (gastroesophageal reflux disease) Well controlled and stable Hyperlipemia Surgical History History of cataract surgery bilateral S/P lumbar fusion L3-S1 decompression and fusion Hx of vasectomy Hx of repair of left rotator cuff 10/2017 History of back surgery upper back and neck C4-C7, 10/2016; lower back 11/1989 Hx of colonoscopy History of prostatectomy 12/2006 Family History Other No family history of adverse response to anesthesia Social History Smoking Status: Never smoker Second Hand Exposure: No; Do You Dip or Chew Tobacco: No; Tobacco Cessation Education Requested by Patient: No Hx Alcohol Use: Yes Alcohol type: wine Hx Substance Use: No Preferred Language: Romanian Communication Ability: Effective Tripper Required: No Beliefs That Will Affect Care: None Current Living Situation: Spouse Other Information That Helps Us Care for You: No Feels Safe at Home: Yes Safety Concerns: Feels Safe At This Time Assistive Devices: Glasses and Hearing Aid - Bilateral Review of Systems Review of Systems: All systems reviewed & are unremarkable except as noted in HPI & below Physical Exam Physical Exam: Constitutional: WD/WN, vitals as above, NAD, sitting up in bed, pleasant, conversing easily Head: Normocephalic, Atraumatic, c-collar in place, dressing CDI, ALBERTO drain intact with serosang drainage Eyes: PERRL, conjunctivae normal, anicteric sclerae ENMT: external ear and nose normal, oropharynx normal Neck: trachea midline, no thyromegaly normal visual inspection Respiratory: normal respiratory effort, lungs clear to auscultation, no wheeze, rales, rhonchi. Normal insp/exp effort, no accessory muscle use Cardiovascular: RRR, no murmur, no edema Vessels: no JVD or carotid bruit Chest: normal inspection of chest Abdomen: normal bowel sounds, soft, nontender, no hepatosplenomegaly Musculoskeletal: no cyanosis or clubbing, extremities motor strength 5/5 Skin: no rashes, warm and dry normal turgor Neurologic: PERRL, EOMI, accommodation nl, no face palsy, no dysarthria CN's II-XI intact bilaterally and moves all extremities Psychiatric: A+Ox3, euthymic affect Lymphatic: no cervical or axillary lymphadenopathy : deferred Results & Data Vital Signs (Past 12 Hours) Vital Signs Temp Pulse Pulse Resp BP Pulse Ox Pulse Ox 09/09/23 16:52 89 16 116/74 96 09/09/23 15:42 85 14 105/59 L 95 09/09/23 14:41 90 16 122/72 96 09/09/23 14:11 87 16 126/72 94 09/09/23 14:02 95 H 15 97 09/09/23 14:01 09/09/23 13:36 96 09/09/23 13:36 37.2 C 94 H 16 124/70 95 09/09/23 13:05 36.5 C 85 20 112/73 95 09/09/23 12:35 83 12 119/75 95 09/09/23 12:20 91 H 14 137/86 95 09/09/23 12:05 91 H 14 124/64 97 09/09/23 11:50 78 15 115/80 95 09/09/23 11:40 78 12 121/72 97 09/09/23 11:30 74 13 115/70 97 09/09/23 11:15 68 14 122/80 97 09/09/23 11:00 36.4 C L 69 12 125/74 97 09/09/23 10:50 68 12 127/73 97 09/09/23 10:40 63 12 125/74 98 09/09/23 10:30 56 L 12 140/75 100 09/09/23 10:20 57 L 16 139/73 100 09/09/23 10:10 58 L 12 133/72 100 09/09/23 10:00 65 13 149/76 H 99 09/09/23 09:50 56 L 14 123/66 99 09/09/23 09:41 36.0 C L 60 12 121/69 100 09/09/23 06:49 36.4 C L 50 L 16 136/86 95 O2 Del Method O2 Del Method O2 Flow Rate O2 Flow Rate 09/09/23 16:52 Nasal Cannula 2 09/09/23 15:42 Nasal Cannula 2 09/09/23 14:41 Nasal Cannula 2 09/09/23 14:11 Nasal Cannula 2 09/09/23 14:02 Nasal Cannula 2 09/09/23 14:01 Nasal Cannula 2 09/09/23 13:36 Nasal Cannula 2 09/09/23 13:36 Nasal Cannula 2 09/09/23 13:05 Nasal Cannula 2 09/09/23 12:35 Nasal Cannula 2 09/09/23 12:20 Nasal Cannula 2 09/09/23 12:05 Nasal Cannula 2 09/09/23 11:50 Nasal Cannula 2 09/09/23 11:40 Nasal Cannula 2 09/09/23 11:30 Nasal Cannula 2 09/09/23 11:15 Nasal Cannula 2 09/09/23 11:00 Nasal Cannula 2 09/09/23 10:50 Nasal Cannula 2 09/09/23 10:40 Nasal Cannula 2 09/09/23 10:30 Nasal Cannula 2 09/09/23 10:20 Nasal Cannula 2 09/09/23 10:10 Nasal Cannula 2 09/09/23 10:00 Oxymask 10 09/09/23 09:50 Oxymask 10 09/09/23 09:41 Oxymask 10 09/09/23 06:49 Room Air Diagnostic Findings Cervical Spine X-Ray 09/09/23 07:45 FL cervical 2-3V CLINICAL HISTORY: ACDF C3-C4 C4-C7 HW REMOVAL COMPARISON STUDY: None. FLUOROSCOPY TIME: 8 seconds. Ka, r: 1.22 mGy FLUOROSCOPIC IMAGES: 2 FINDINGS: Fluoroscopy was provided during C3-C4 anterior discectomy and fusion. Previous C4-C7 anterior discectomy and fusion is noted. IMPRESSION: Fluoroscopy provided during C3-C4 anterior discectomy and fusion. ACT 112: Negative or not required by law. Electronically signed by: Abdifatah Saldana M.D. 09/09/2023 1:58 PM Medications Administered Current Inpatient Medications Acetaminophen (Acetaminophen 500 Mg Tab) 1,000 mg PO PREOP LIZETH Stop: 09/09/23 18:00 Last Admin: 09/09/23 06:48 Dose: 1,000 mg Acetaminophen (Acetaminophen 500 Mg Tab) 1,000 mg PO Q8H PRN PRN Reason: MILD Pain Scale 1,2,3 & Pre PT Stop: 10/09/23 13:35 Al Hydrox/Mg Hydrox/Simethicone (Aluminum/Magnesium Susp 30 Ml Udc) 30 ml PO Q6H PRN PRN Reason: Dyspepsia Stop: 10/09/23 13:35 Aspirin (Aspirin 81 Mg Ectab) [facility] [place]: 10/10/23 08:59 Atorvastatin Calcium (Atorvastatin 40 Mg Tab) [facility] [place]: 10/10/23 08:59 Bisacodyl (Bisacodyl 10 Mg Supp) 10 mg [place] DAILY PRN PRN Reason: Constipation Stop: 10/09/23 13:35 Celecoxib (Celebrex 200 Mg Cap) 200 mg PO PREOP [facility] Stop: 09/09/23 18:00 Last Admin: 09/09/23 06:48 Dose: 200 mg Diphenhydramine HCl (Diphenhydramine Capsule 25 Mg Cap) 25 mg PO Q6H PRN PRN Reason: Allergic Rhinitis/Insomnia Stop: 10/09/23 13:35 Ezetimibe (Ezetimibe 10 Mg Tab) 10 mg PO [facility] Stop: 10/10/23 08:59 Epinephrine (Racepinephrine 2.25% Nebu Soln 0.5 Ml Vial) 0.5 ml INH NOW PRN PRN Reason: If stridor present Famotidine (Famotidine 20 Mg Tab) 20 mg PO [facility] Stop: 10/10/23 08:59 Famotidine (Famotidine 20 Mg Tab) 20 mg PO Q12H PRN PRN Reason: Dyspepsia Stop: 10/09/23 13:35 Gabapentin (Gabapentin 300 Mg Cap) 300 mg PO PREOP [facility] Stop: 09/09/23 18:00 Last Admin: 09/09/23 06:48 Dose: 300 mg Hydromorphone HCl (Hydromorphone Inj 0.5 Mg/0.5 Ml Syr) 0.5 mg IV Q3H PRN PRN Reason: MODERATE Pain (Scale 4,5,6) & Pre PT Stop: 09/23/23 13:35 Hydromorphone HCl (Hydromorphone Inj 1 Mg/Ml Syringe) 1 mg IV Q3H PRN PRN Reason: SEVERE Pain (Scale 7,8,9,10) Stop: 09/23/23 13:35 Hydroxyzine HCl (Hydroxyzine Hcl 25 Mg Tab) 25 mg PO Q8H PRN PRN Reason: Anxiety Stop: 10/09/23 13:35 Lactated Ringer's (Lr) 1,000 mls @ 60 mls/hr IV .[id number] LIZETH Stop: 09/09/23 22:39 Last Admin: 09/09/23 06:47 Dose: Not Given Cefazolin Sodium (Ancef 2000mg) 2,000 mg in 15 mls @ 3.75 mls/min IV PREOP LIZETH; Protocol Stop: 09/09/23 18:00 Last Admin: 09/09/23 07:52 Dose: 3.75 mls/min Lactated Ringer's (Lr) 1,000 mls @ 15 mls/hr IV .Q24H LIZETH Stop: 09/10/23 05:59 Last Infusion: 09/09/23 07:52 Dose: Infused Dexamethasone 8 mg/ Syringe 2 mls @ 1 mls/min IV NOW PRN PRN Reason: If stridor present Lactated Ringer's (Lr) 1,000 mls @ 100 mls/hr IV .Q10H LIZETH Stop: 10/09/23 13:35 Last Admin: 09/09/23 14:36 Dose: 100 mls/hr Promethazine HCl 12.5 mg/ (Sodium Chloride) 50.5 mls @ 202 mls/hr IV Q6H PRN PRN Reason: Nausea &/or Vomiting Stop: 10/09/23 13:35 Acetaminophen (Ofirmev) 1,000 mg in 100 mls @ 400 mls/hr IV Q8H PRN PRN Reason: Pain Rating 1-3 & Pre PT Stop: 09/10/23 13:36 Cefazolin Sodium (Ancef 2000mg) 2,000 mg in 15 mls @ 3.75 mls/min IV Q8H LIZETH; Protocol Stop: 09/09/23 23:33 Last Admin: 09/09/23 15:45 Dose: 3.75 mls/min Lorazepam 0.5 mg/ Syringe 0.5 mls @ 2 mls/min IV Q8H PRN; Protocol PRN Reason: Sedation/Anxiety Stop: 10/09/23 13:35 Dexamethasone 6 mg/ Syringe 1.5 mls @ 1 mls/min IV DAILY LIZETH Stop: 09/12/23 09:02 Influenza Virus Vaccine Quadrival (Do Not Administer Flu Vaccine) 1 each N/A PRN PRN PRN Reason: Notification Stop: 10/09/23 13:35 Lorazepam (Lorazepam 0.5 Mg Tab) 0.5 mg PO Q8H PRN PRN Reason: Sedation/Anxiety Stop: 10/09/23 13:35 Magnesium Hydroxide (Magnesium Hydroxide Susp 30 Ml Udc) 30 ml PO Q24H PRN PRN Reason: Constipation Stop: 10/09/23 13:35 Metoclopramide HCl (Metoclopramide Hcl Inj 5 Mg/Ml 2 Ml Vial) 10 mg IV Q6H PRN PRN Reason: Nausea &/or Vomiting Stop: 10/09/23 13:35 Naloxone HCl (Naloxone Hcl 0.4 Mg/1 Ml Vial/Carp) 0.1 mg IV Q5M PRN PRN Reason: Oversedation/Resp depression Stop: 10/09/23 13:35 Ondansetron HCl (Ondansetron Inj 2 Mg/Ml 2 Ml Vial) 4 mg IV Q6H PRN PRN Reason: Nausea &/or Vomiting Stop: 10/09/23 13:35 Ondansetron HCl (Ondansetron 4 Mg Od Tab) 4 mg PO Q6H PRN PRN Reason: Nausea Stop: 10/09/23 13:35 Oxycodone HCl (Oxycodone Hcl Ir 5 Mg Tab (Immediate Release)) 5 - 10 mg PO Q4H PRN PRN Reason: Pain & Pre PT Stop: 09/23/23 13:35 Pneumococcal Polyvalent Vaccine (Do Not Administer Pneumococcal Vaccine) 1 each N/A PRN PRN PRN Reason: Notification Stop: 10/09/23 13:35 Polyethylene Glycol (Polyethylene (Miralax) 17 Gm Pack) 17 gm PO Q6 LIZETH Stop: 10/10/23 05:59 Ropinirole HCl (Ropinirole Hcl 1 Mg Tablet) 1 mg PO HS LIZETH Stop: 10/09/23 20:59 Ropinirole HCl (Ropinirole Hcl 1 Mg Tablet) 0.5 mg PO DAILY@1600 LIZETH Stop: 10/09/23 15:59 Last Admin: 09/09/23 15:45 Dose: 0.5 mg Senna/Docusate Sodium (Docusate Sodium/Senna 50/8.6mg Tab) 2 tab PO HS LIZETH Stop: 10/09/23 20:59 Sertraline HCl (Sertraline Hcl 100 Mg Tablet) 100 mg PO QAM LIZETH Stop: 10/10/23 08:59 Sodium Biphosphate/Sodium Phosphate (Sod Phosphate/Sod Biphosphate Enema 132 Ml Btl) 132 ml NH ONE PRN PRN Reason: Constipation Stop: 10/09/23 13:35 Tramadol HCl (Tramadol Hcl 50 Mg Tablet) 50 - 100 mg PO Q4H PRN PRN Reason: Moderate-Severe pain & Pre PT Stop: 10/09/23 13:35 ECG Additional Comments: sinus justin, 46bpm, qtc 83ms, no change from prior
[2023-09-09] MEDS ORDERED: DOCUSATE SODIUM/SENNA 50/8.6MG TAB PO SCH (21:00)
[2023-09-09] MEDS: oxyCODONE HCL IR 5 MG TAB (IMMEDIATE RELEASE) PO PRN (21:16)
[2023-09-10] MEDS: LACTATED RINGER'S 1,000 ML IV SCH (00:28)
[2023-09-10] MEDS: POLYETHYLENE (MIRALAX) 17 GM PACK PO SCH ×2 (05:20→12:09)
[2023-09-10 06:23] LABS: Basophils # (auto) 0.03 K/uL (0.00-0.20); Basophils % (auto) 0.3 %; Eosinophils # (auto) 0.01 K/uL (0.00-0.50); Eosinophils % (auto) 0.1 %; Hematocrit (blood only) 40.2 % (42.0-52.0); Hemoglobin 13.6 g/dl (14.0-18.0); Immature Granulocytes # (auto) 0.04 K/uL (0.01-0.20); Immature Granulocytes % (auto) 0.3 %; Lymphocytes % (auto) 6.9 %; Mean Corpuscular Hemoglobin 31.3 pg (25.0-34.0); Mean Corpuscular Hgb Conc 33.8 g/dL (32.0-36.0); Mean Corpuscular Volume 92.4 fL (80.0-100.0); Mean Platelet Volume 9.3 fL (9.4-12.4); Monocytes # (auto) 0.73 K/uL (0.11-0.59); Monocytes % (auto) 6.3 %; Neutrophils # (auto) 9.98 K/uL (1.40-6.50); Neutrophils % (auto) 86.1 %; Platelet Count 234 K/uL (130-400); RDW Coefficient of Variation 13.2 % (11.5-14.5); RDW Standard Deviation 45.5 fL (36.4-46.3); Red Blood Count 4.35 M/uL (4.70-6.10); White Blood Count 11.59 K/ul (4.8-10.8)
[2023-09-10 06:37] LABS: BUN Creatinine Ratio 16.3 (10-20); Calcium 8.8 mg/dl (8.6-10.3); Creatinine Clr Calc Pharmacy 80.8 ml/min; Est GFR (African American) 103.4 ml/min; Est GFR (Non-African American) 89.2 ml/min; Potassium 4.3 mmol/L (3.5-5.1)
[2023-09-10 08:22] VITALS: RESP 16
[2023-09-10] MEDS ORDERED: FAMOTIDINE 20 MG TAB PO SCH (09:00)
[2023-09-10] MEDS ORDERED: ATORVASTATIN 40 MG TAB PO SCH (09:00)
[2023-09-10] MEDS ORDERED: ASPIRIN 81 MG ECTAB PO SCH (09:00)
[2023-09-10] MEDS ORDERED: SERTRALINE HCL 100 MG TABLET PO SCH (09:00)
[2023-09-10] MEDS ORDERED: dexAMETHasone 6 MG in SYRINGE 0 ML IV SCH (09:00)
[2023-09-10] MEDS ORDERED: EZETIMIBE 10 MG TAB PO SCH (09:00)
--- NOTE | 2023-09-10 09:14 | Discharge Summary ---
Date of Service September 10, 2023 Admission HPI Per Admitting Provider This is a 73-year-old male who presents with chronic persistent neck and arm pain after failing course of nonoperative care is here for surgical invention. Principal Diagnosis Cervical spinal stenosis with radiculopathy Discharge Data Allergies Allergy/AdvReac Type Severity Reaction Status Date / Time No Known Allergies Allergy Mild Verified 08/19/23 09:13 Consultations 09/09/23 13:36 Consult Hospitalist Routine Procedures Performed Operation Date: 09/09/23 07:45 Actual Procedures p C3-C4 Anterior Cervical Discectomy and Fusion with Spinal Cord Monitoring(Not Applicable) - Fareed Gaming DO Ordered Studies 09/09/23 07:45 FL cervical 2-3V Routine Hospital Course (1) Cervical stenosis of spinal canal: Patient underwent anterior cervical discectomy and fusion tolerated this well stable orthopedic for postoperative. Postop day #1 he was swallowing well. No hoarseness. Extra strength testing. ALBERTO drain decreasing appropriately. Subsequent discharge home. Discharge orders instructions found in chart for further review. Total Time Total Time Spent Total Time Spent (In Minutes): 20 minutes Discharge Plan Discharge Items Patient Disposition: Home - Self-Care Reason For Visit: POST OP Discharge Diagnosis: Cervical spinal stenosis with radiculopathy Activity: As commented below Non-emergency contact: Primary Care Provider Call non-emergency contact if: you have any medication questions Follow-up/Referrals: Kyree Theodore MD [Primary Care Provider] - Diet: Regular Addtl Attending Provider Instructions: ACTIVITY RECOMMENDATIONS: SELF CARE INSTRUCTIONS AFTER CERVICAL FUSIONS 1. No smoking. Smoking drastically decreases the chance of a solid fusion. 2. No bending, lifting more than 5 pounds, or twisting (roll like a log when turning in bed). 3. You may shower 3 days after surgery. Thoroughly dry wound. Do not soak in the tub. 4. Cervical collar: Must be worn at all times including sleeping. You may remove the brace only to bath, eat and if you are sitting in a recliner. 5. Please walk as much as you can for exercise. Gradually increase the distance that you walk as your endurance increases. SPECIAL CARE INSTRUCTIONS: VERY IMPORTANT TO READ AND REVIEW A. Do not take any anti-inflammatory medications (i.e. Indocin, Advil, Aspirin, Naprosyn, Aleve, Motrin, etc.) as these may inhibit the chance of a solid fusion. Tylenol is okay to take. B. Your surgical incision has been closed with a cosmetic suture under the skin that will dissolve in about 6 weeks. In 14 days, you can use a pair of clean scissors and cut the suture that is left outside of the skin at the ends of your incision. C. Complications are uncommon, but please contact us if you have any signs or symptoms of: 1. wound infection (fever higher than 102.5 degrees F, redness, separation of wound, drainage, or increasing pain from the incision) 2. blood clots in legs (pain, swelling, redness and warmth in legs) 3. urinary tract infection (fever higher than 102.5 degrees, burning upon urination or increased frequency of urination) 4. nerve problems (inability to walk on your toes or heels, numbness, loss of bowel or bladder control) 5. any other symptoms that concern you. D. Please call the office at if you have any concerns or questions about your operation or recovery. MANAGING PAIN AFTER SPINAL SURGERY 1. Narcotic medication is intended for short-term use and will be provided for surgical pain. Surgical pain usually lasts for a period of 4-6 weeks. Narcotic medication includes Percocet, Vicodin, Darvocet, Tylenol #3 or Lortab. 2. Longer-term pain is more appropriately treated with non-narcotic medication such as Tylenol ES. 3. Muscle spasm is not appropriately treated with narcotics. Muscle relaxers such as Soma, Flexeril or Skelaxin can be used along with Tylenol ES. 4. Remember that we all live with some "aches and pains". This is not unusual or uncommon after an injury or as we get older. 5. We will provide appropriate medication within the normal guidelines of their prescribed use. We will also be very cautious and aware of potential abuse and extended duration of patients' medication needs. 6. Please allow 2-3 days to process refills. Prescriptions will not be mailed but must be picked up at the office. FOLLOW UP VISIT: Keep your scheduled follow-up appointment. Any questions, please call the office at . Pending Studies at Discharge: No Stand-Alone Forms: [facility] [employer], Smoking Cessation Medications and DC Order Prescriptions: New tramadol 50 mg tablet 50 mg PO Q6H PRN (Reason: pain, moderate) Qty: 20 0RF oxycodone 5 mg tablet 5 mg PO Q6H PRN (Reason: pain) Qty: 20 0RF Continued ropinirole 0.5 mg tablet 0.5 mg PO QPM famotidine [Acid Pediatric Physical Therapy Assistant (famotidine)] 20 mg tablet 20 mg PO QAM Daily Fiber (psyllium-sucrose) 3.4 gram/7 gram powder 1 tbsp PO QAM ropinirole 0.5 mg Tablet 2 mg PO HS multivitamin Tablet 1 tab PO QAM atorvastatin 80 mg Tablet 80 mg PO QAM cyanocobalamin (vitamin B-12) [Vitamin B-12] 2,500 mcg Tablet, Sublingual 2,500 mcg SUBLINGUAL QAM sertraline 100 mg Tablet 100 mg PO QAM ezetimibe 10 mg Tablet 10 mg PO QAM omega-3 fatty acids-vitamin E 1,000 mg Capsule 1 cap PO QAM cholecalciferol (vitamin D3) [Vitamin D3] 25 mcg (1,000 unit) Tablet 25 mcg PO QAM aspirin 81 mg Capsule 81 mg PO QAM Discharge Orders: Discharge Order (Routine); Ordered 09/10/23 Ordered By: Fareed Gaming Admission Data Admit Date/Time: 09/09/23 09:27 Attending Provider: Fareed Gaming Admit Provider: Fareed Gaming Primary Care Provider: Kyree Theodore Other Providers: Lisa Morales
[2023-09-10 10:09] VITALS: BP 131/72
[2023-09-10 10:17] VITALS: TEMP 99
[2023-09-10 12:25] VITALS: PULSE 61; O2SAT 96
[2023-09-10] MEDS: oxyCODONE HCL IR 5 MG TAB (IMMEDIATE RELEASE) PO PRN (12:53)
== END 2023-09-10 13:35 | disposition home or self-care (01) | DRG 473 ==
LOC: ASU 05:56 → PACUINP 09:27 → 3E 13:36

== ENCOUNTER 2025-09-21 08:51 | Inpatient (IN) ==
--- NOTE | 2025-08-23 11:30 | PAT Medication Instructions ---
Medication Instructions Date of Service August 23, 2025 Home Medications famotidine 20 mg tablet (Acid Oriental Rug Rep[employer]r (famotidine)) 20 mg PO QAM atorvastatin 80 mg tablet 80 mg PO QAM cholecalciferol (vitamin D3) 25 mcg (1,000 unit) tablet (Vitamin D3) 25 mcg PO UD cyanocobalamin (vitamin B-12) 2,500 mcg sublingual tablet (Vitamin B-12) 2,500 mcg sublingual QAM ezetimibe 10 mg tablet 10 mg PO QAM multivitamin 1 tab PO QAM omega-3 fatty acids-vitamin E 1,000 mg capsule 1 cap PO QAM sertraline 100 mg tablet 100 mg PO QAM ropinirole 0.5 mg tablet 0.5 mg PO TID ibuprofen 200 mg tablet 200 mg PO BID ASK your surgeon for instructions ibuprofen 200 mg tablet 200 mg PO BID cholecalciferol (vitamin D3) 25 mcg (1,000 unit) tablet (Vitamin D3) 25 mcg PO UD STOP taking 2 weeks before surgery (or as soon as possible if surgery is within 2 weeks) omega-3 fatty acids-vitamin E 1,000 mg capsule 1 cap PO QAM DO NOT take the morning of surgery cyanocobalamin (vitamin B-12) 2,500 mcg sublingual tablet (Vitamin B-12) 2,500 mcg sublingual QAM multivitamin 1 tab PO QAM Take morning of surgery With a small sip of water, OTHERWISE NOTHING TO EAT OR DRINK AFTER MIDNIGHT: famotidine 20 mg tablet (Acid Oriental Rug Repairer (famotidine)) 20 mg PO QAM ezetimibe 10 mg tablet 10 mg PO QAM sertraline 100 mg tablet 100 mg PO QAM ropinirole 0.5 mg tablet 0.5 mg PO TID Take evening before surgery ropinirole 0.5 mg tablet 0.5 mg PO TID Other Notes If you have any questions please call us at [phone] or [phone] or [phone] or [phone]
--- NOTE | 2025-08-26 11:37 | Anesthesiology Consultation ---
Date of Service August 26, 2025 Assessment & Plan (1) Encounter for pre-operative examination: - Infectious disease screening: Per assessment on 08/26/25- No known recent infectious disease contacts or current infectious disease symptoms. - S/P C3-4 ACDF (09/09/23): Grade view 1, Glidescope#4, ETT 7.5, [facility] - Acceptable risk for surgery pending surgeon-ordered PCP preop evaluation ([facility], appt 08/29). Chart Review Chart Review: Patient seen in Pre Admission Testing Teaching & Discussion Pre-Anesthesia Teaching/Discussion Notes: Instructed NPO after midnight before surgery,except medications with 15 cc of water. Medication instructions provided according to the PAT guidelines. History Surgery Operation Date: 09/21/25 11:05 Proposed Procedures p Decompression and Fusion L2-L3 - Fareed Gaming, DO Height/Weight Height: 5 ft 10 in Weight: 1.6 kg Allergies Allergy/AdvReac Type Severity Reaction Status Date / Time cyclobenzaprine AdvReac Unknown Hallucinati Verified 08/23/25 11:33 [From Flexeril] ons Medications Home Medications Medication Instructions Recorded Confirmed Last Taken famotidine 20 mg tablet (Acid 20 mg PO QAM 10/23/21 08/23/25 09/08/23 09:00 Devops (famotidine)) atorvastatin 80 mg tablet 80 mg PO QAM 08/27/22 08/23/25 09/08/23 09:00 cholecalciferol (vitamin D3) 25 25 mcg PO UD 08/27/22 08/23/25 09/08/23 09:00 mcg (1,000 unit) tablet (Vitamin D3) cyanocobalamin (vitamin B-12) 2,500 mcg sublingual QAM 08/27/22 08/23/25 09/08/23 09:00 2,500 mcg sublingual tablet (Vitamin B-12) ezetimibe 10 mg tablet 10 mg PO QAM 08/27/22 08/23/25 09/08/23 09:00 multivitamin 1 tab PO QAM 08/27/22 08/23/25 09/08/23 09:00 omega-3 fatty acids-vitamin E 1 cap PO QAM 08/27/22 08/23/25 08/26/23 1,000 mg capsule sertraline 100 mg tablet 100 mg PO QAM 08/27/22 08/23/25 09/09/23 05:00 ropinirole 0.5 mg tablet 0.5 mg PO TID 08/19/23 08/23/25 09/08/23 21:00 ibuprofen 200 mg tablet 200 mg PO BID 08/23/25 08/23/25 Unknown Past Medical History Medical History Anxiety and depression Arm numbness Improved after cervical surgery GERD (gastroesophageal reflux disease) History of chronic back pain History of prostate cancer Dx ~2006, s/p surgery (2006) and 38 radiation treatments (2017) History of restless legs syndrome Stable Hx of hearing loss B/L hearing aids Hyperlipidemia Lumbar herniated disc Exercise / Class Metabolic Activity II 4-5 Yardwork/Stairs/Walk up hill (one FS: No CP, no SOB) Past Family History Family History Other No family history of adverse response to anesthesia Past Surgical History Surgical History History of cataract surgery R/L History of fusion of cervical spine C4-C7 (2016) C3-4 ACDF: Grade view 1, Glidescope#4, ETT 7.5, [facility] (09/09/23) History of lumbar spinal fusion 09/2022 L3-S1 History of prostatectomy (12/2006) Hx of colonoscopy Hx of repair of left rotator cuff 2017 Hx of vasectomy Past Anesthesia History No Hx of Anesthesia Complications and No Family Hx of Anesthesia Complications History of PONV No Hx of PONV and No Hx of Motion Sickness Social History Smoking Status: Never smoker Do You Dip or Chew Tobacco: No Hx Alcohol Use: No Alcohol type: wine alcohol intake frequency: holidays/special occasions only Hx Substance Use: No substance use type: does not use Review of Systems Patient denies chest pain, shortness of breath, dyspnea on exertion, fever, chills, cough, wheezing, palpitations. Physical Exam Vital Signs BP 108/68 P 53 TEMP 97.5 SP02 95%RA RESP 18 Physical Significantly decreased cervical extension range of motion. Full TMJ range of motion. TMD 3 finger breaths Mallampati Score I Dentition: intact Lungs: clear throughout to auscultation Cardiac: regular rate and rhythm, no murmurs noted Spine: normal Carotid arteries: negative bruit Extremities: no LE edema Lab Results Anesthesia Preop Results Results Anesthesia Widget: WBC 6.13 K/ul (4.8-10.8) 08/26/25 Hgb 14.8 g/dL (14.0-18.0) 08/26/25 Hct 41.5 % (42.0-52.0) L 08/26/25 Plt 278 K/uL (130-400) 08/26/25 Na 137 mmol/L (136-145) 08/26/25 K 4.1 mmol/L (3.5-5.1) 08/26/25 Cl 105 mmol/L (98-107) 08/26/25 CO2 25 mmol/L (21-32) 08/26/25 BUN 20 mg/dl (6-23) 08/26/25 Creat 0.77 mg/dl (0.6-1.4) 08/26/25 Glucose Level 100 mg/dl (70-99(Fasting)) H 08/26/25 PT 11.2 Seconds (9.0-12.0) 08/26/25 PTT 28 Seconds (21-31) 08/26/25 INR 1.1 (0.9-1.1) 08/26/25 Urine Color Yellow 08/26/25 Urine Appearance Clear (Clear) 08/26/25 Urine pH 5.5 (4.5-7.5) 08/26/25 Urine Specific George 1.024 (1.000-1.030) 08/26/25 Urine Protein Negative (Negative) 08/26/25 Urine Glucose (UA) Negative (Negative) 08/26/25 Urine Ketones Negative (Negative) 08/26/25 Urine Blood Negative (Negative) 08/26/25 Urine Nitrite Negative (Negative) 08/26/25 Urine Bilirubin Negative (Negative) 08/26/25 Urine Urobilinogen Negative (Negative) 08/26/25 Urine Leukocyte Esterase Negative (Negative) 08/26/25 Blood Type A Positive 08/26/25 Antibody Screen NEGATIVE 08/26/25 Testing Electrocardiogram Date: 08/26/25 SB at 49bpm. Rightward axis. No significant change compared to 08/26/2023 per plc programmer comparison. Chest X-Ray Date: 08/26/25 Findings: + NAD
[~2025-09-21 08:51] MED LIST changes: -ACETAMINOPHEN 500 MG TAB PO SCH; -CeleBREX 200 MG CAP PO SCH; +DEXAMETHASONE SOD INJ 4 MG/ML VIAL ONE; -GABAPENTIN 300 MG CAP PO SCH; +GLYCOPYRROLATE 0.2 MG/ML VIAL ONE; +KETAMINE HCL 10MG/ML SYR ONE; +LIDOCAINE 2% 2 ML VIAL/AMP(20MG/ML) INFIL ONE; -LR 15ML/HR IV SCH; +MIDAZOLAM HCL 1 MG/ML 2ML VIAL ONE; +ONDANSETRON INJ 2 MG/ML 2 ML VIAL ONE; +PROPOFOL IV EMULSION 10 MG/ML 20 ML VIAL IV ONE; +ROCURONIUM BROMIDE 10 MG/ML 5 ML VIAL IV ONE; +SUGAMMADEX SODIUM 200 MG/2 ML VIAL IV ONE; -ceFAZolin 2000MG 2,000 MG/15 ML SYR IV SCH
[2025-09-21] MEDS: ACETAMINOPHEN 500 MG TAB PO SCH (09:25)
[2025-09-21] MEDS: LR 15ML/HR IV SCH (09:25)
[2025-09-21] MEDS: LR 60ML/HR IV SCH (09:25)
[2025-09-21] MEDS: GABAPENTIN 300 MG CAP PO SCH (09:25)
[2025-09-21] MEDS: CeleBREX 200 MG CAP PO SCH (09:26)
--- NOTE | 2025-09-21 10:02 | History & Physical Bridge Note ---
Date of Service September 21, 2025 History & Physical Bridge Note I have examined the patient, reviewed the History & Physical and in the interval since the performance of the History & Physical I have noted the following changes of clinical significance: no changes noted
--- NOTE | 2025-09-21 10:03 | History & Physical Report ---
Date of Service September 21, 2025 Assessment & Plan (1) Other spondylosis with radiculopathy, lumbar region: Plan: Decompression fusion L2-L3 History of Present Illness Chief Complaint: Back and leg pain Primary Care Provider: Kyree Theodore MD This is a 75-year-old male well-known to me the presents with worsening back and leg pain after failing course of nonoperative care is here for surgical invention. Allergies Allergy/AdvReac Type Severity Reaction Status Date / Time cyclobenzaprine AdvReac Unknown Hallucinati Verified 09/21/25 09:05 [From Flexeril] ons Home Medications Medication Instructions Recorded Confirmed Type famotidine 20 mg tablet (Acid 20 mg PO QAM 10/23/21 08/23/25 History Engineer Byproduct (famotidine)) atorvastatin 80 mg tablet 80 mg PO QAM 08/27/22 08/23/25 History cholecalciferol (vitamin D3) 25 25 mcg PO UD 08/27/22 08/23/25 History mcg (1,000 unit) tablet (Vitamin D3) cyanocobalamin (vitamin B-12) 2,500 mcg sublingual QAM 08/27/22 08/23/25 History 2,500 mcg sublingual tablet (Vitamin B-12) ezetimibe 10 mg tablet 10 mg PO QAM 08/27/22 08/23/25 History multivitamin 1 tab PO QAM 08/27/22 08/23/25 History omega-3 fatty acids-vitamin E 1 cap PO QAM 08/27/22 08/23/25 History 1,000 mg capsule sertraline 100 mg tablet 100 mg PO QAM 08/27/22 08/23/25 History ropinirole 0.5 mg tablet 0.5 mg PO TID 08/19/23 08/23/25 History ibuprofen 200 mg tablet 200 mg PO BID 08/23/25 08/23/25 History Past Med/Surg History Problem List (Updated 09/21/25 @ 10:03 by Fareed Gaming DO) Other spondylosis with radiculopathy, lumbar region Cervical stenosis of spinal canal Neurogenic claudication due to lumbar spinal stenosis Encounter for pre-operative examination History of prostate cancer GERD (gastroesophageal reflux disease) Hyperlipemia Medical History Anxiety and depression Arm numbness Improved after cervical surgery GERD (gastroesophageal reflux disease) History of chronic back pain History of prostate cancer Dx ~2006, s/p surgery (2006) and 38 radiation treatments (2017) History of restless legs syndrome Stable Hx of hearing loss B/L hearing aids Hyperlipidemia Lumbar herniated disc Surgical History History of cataract surgery R/L History of fusion of cervical spine C4-C7 (2016) C3-4 ACDF: Grade view 1, Glidescope#4, ETT 7.5, [facility] (09/09/23) History of lumbar spinal fusion 09/2022 L3-S1 History of prostatectomy (12/2006) Hx of colonoscopy Hx of repair of left rotator cuff 2017 Hx of vasectomy Family History Other No family history of adverse response to anesthesia Social History Smoking Status: Never smoker Second Hand Exposure: No; Do You Dip or Chew Tobacco: No; Hx Alcohol Use: No Hx Substance Use: No Preferred Language: Azeri Communication Ability: Effective Communication Ability Comment: pt is [facility] [place] [facility] Team Member Required: No Beliefs That Will Affect Care: None Current Living Situation: Spouse Feels Safe at Home: Yes Assistive Devices: Glasses and Hearing Aid - Bilateral Physical Exam Physical Exam: Patient is alert and oriented Heart regular rhythm Lungs clear Results & Data Results & Data Vital Signs (Past 12 Hours) Vital Signs Temp Pulse Resp BP Pulse Ox O2 Del Method 09/21/25 09:13 36.6 C 59 L 20 166/92 H 97 Room Air
[2025-09-21] MEDS ORDERED: MoRPHine SULFATE 10 MG/ML CARP/VIAL IV PRN (10:18)
[2025-09-21] MEDS ORDERED: ATROPINE SULFATE 0.1 MG/ML 10ML SYR IV PRN (10:18)
[2025-09-21] MEDS ORDERED: HYDROmorphone INJ 1 MG/ML SYRINGE IV PRN ×2 (10:18→14:32)
[2025-09-21] MEDS: ceFAZolin 330 MG/ML 1 GM VIAL ONE (11:04)
[2025-09-21] MEDS: BUPIVACAINE/EPINEPHRINE 0.25% 1:200,000 30 ML VIAL ONE (11:04)
[2025-09-21] MEDS: FLOSEAL HEMOSTATIC MATRIX 10ML TOP ONE (12:19)
--- NOTE | 2025-09-21 12:30 | Operative Report ---
Post Operative Report Pre & Post Diagnosis Operation Date: 09/21/25 09:55 Pre-Op Diagnosis: #1 lumbar spondylosis with radiculopathy #2 lumbar disc herniation with radiculopathy #3 lumbar spinal stenosis Post-Op Diagnosis: Same I identified the patient and participated in the time-out.: Yes Procedure Operation Date: 09/21/25 09:55 Actual Procedures #1 lumbar decompression with bilateral medial facetectomies and foraminotomies L1-L2 L2-L3 including removal of herniated free fragments at L2-L3. #2 posterior spinal fusion L2-L3. #3 placement posterior instrumentation with pedicle screws at L2 and connectors at the L3-L4 leif. #4 interbody fusion L2- L3. #5 placement of Spira 11 x 26 mm at L2-L3. #6 placement of Proteus combined with Koros bone graft in the posterior lateral gutters and os design interbody space. #7 application of versa wrap of the exposed dura. Surgeon Fareed Gaming, Water Trainer Lydia Mckenzie Estimated Blood Loss 200 Findings Consistent with Post-Op Diagnosis Specimens None Indications This is a 75-year-old male presents problems diagnosis of failing course of nonoperative care he is here for surgical invention. Description of Procedure Patient is met with identified informed sent obtained. Patient was then taken to the operative suite underwent patient placed in a prone position on the Jesus table atop the Tang frame. All bony prominences well-padded eyes inspected to ensure no external pressure placed upon them. This point lumbar spine was prepped and draped in sterile fashion. Sharp dissection with the assistance of Bovie cautery from down to and exposing the lamina and transverse processes of L2 and the instrumentation rods between L3 and L4. Then performed a complete laminectomy of L2 with bilateral medial facetectomies and foraminotomies as well excision of herniated free fragments of disc material. Then performed a partial laminectomy of L1 with bilateral medial facetectomies to address all subarticular stenosis. Pedicle screws were then placed in L2 and connectors attached to the leif between L3-L4. By way of transforaminal approach and right complete discectomy of L to L3 was performed endplates created to subcortical bleeding bone and a 11 x 26 mm Spira cage filled with os design bone graft tapped in position. The proper size rods were then placed and locked into position bilaterally. The transverse processes of L2 and L3 burred to subcortically bone. Proteus combined with Koros bone graft placed in posterior gutters. Versa wrap placed over the exposed dura. 15 round ALBERTO drain inserted. Incision was then closed with 1 Vicryl fascia 2-0 Vicryl subcutaneously and 4 Monocryl for final skin closure. Steri-Strips and sterile dressing placed. Patient waken taken to PACU stable condition. Please note Lydia Mckenzie was present at the entire procedure and for the patient positioning complex course of the surgery and final skin closure. I attest to the content of the Intraoperative Record and any orders documented therein. Any exceptions are noted below.
--- NOTE | 2025-09-21 12:32 | Fluoroscopy Report ---
INTRAOPERATIVE RADIOGRAPHS CLINICAL HISTORY: Lumbar spine fusion surgery. Fluoro time: 8 seconds Ka,r: 8.05 mGy FINDINGS: 2 spot fluoroscopic views of the lumbar spine are presented. There is evidence of multileve l discectomy with laminectomy and posterior fusion seen throughout the lumbar spine. Today's surgery is reportedly at L2-L3. The levels cannot be clearly delineated on the provided images. The orthopedi c hardware is intact as visualized. IMPRESSION: Intraoperative images from lumbar spinal fusion surgery as above. See operative report fo r detailed findings. Electronically signed by: Jeremie Gonzalez M.D. 09/21/2025 12:31 PM
[2025-09-21] MEDS ORDERED: MAGNESIUM HYDROXIDE SUSP 30 ML UDC PO PRN (14:32)
[2025-09-21] MEDS ORDERED: ACETAMINOPHEN 1,000 MG/100 ML VIAL IV PRN (14:32)
[2025-09-21] MEDS ORDERED: PROMETHAZINE 12.5 MG/50.5 ML BAG IV PRN (14:32)
[2025-09-21] MEDS ORDERED: ONDANSETRON 4 MG OD TAB PO PRN (14:32)
[2025-09-21] MEDS ORDERED: DO NOT ADMINISTER PNEUMOCOCCAL VACCINE PRN (14:32)
[2025-09-21] MEDS ORDERED: LORazepam Inj 0.5 MG in SYRINGE 0.25 ML IV PRN (14:32)
[2025-09-21] MEDS ORDERED: ALUMINUM/MAGNESIUM SUSP 30 ML UDC PO PRN (14:32)
[2025-09-21] MEDS ORDERED: LORazepam 0.5 MG TAB PO PRN (14:32)
[2025-09-21] MEDS ORDERED: METOCLOPRAMIDE HCL INJ 5 MG/ML 2 ML VIAL IV PRN (14:32)
[2025-09-21] MEDS ORDERED: DO NOT ADMINISTER FLU VACCINE PRN (14:32)
[2025-09-21] MEDS ORDERED: HYDROmorphone INJ 0.5 MG/0.5 ML SYR IV PRN (14:32)
[2025-09-21] MEDS ORDERED: NALOXONE HCL 0.4 MG/1 ML VIAL/CARP IV PRN (14:32)
[2025-09-21] MEDS ORDERED: ONDANSETRON INJ 2 MG/ML 2 ML VIAL IV PRN (14:32)
[2025-09-21] MEDS ORDERED: SOD PHOSPHATE/SOD BIPHOSPHATE ENEMA 132 ML BTL PR PRN (14:32)
--- NOTE | 2025-09-21 14:45 | Consultation ---
Date of Consultation September 21, 2025 Assessment & Plan (1) S/P spinal surgery: (2) Neurogenic claudication due to lumbar spinal stenosis: Post op day# 0 S/P L1-L3 decompression and fusion by Dr Amberly HERNÁNDEZ#200ml Pain management per ortho Wound management per ortho PT/OT as appropriate DVT prophylaxis per ortho Incentive spirometry Monitor H&H for acute blood loss anemia; Hgb: 14.8 (3) Hyperlipemia: Continue home atorvastatin, ezetimibe (4) GERD (gastroesophageal reflux disease): Continue home famotidine (5) History of restless legs syndrome: Continue ropinirole (6) Anxiety and depression: Continue sertraline (7) History of prostate cancer: S/P surgery, xrt DVT Prophylaxis SCDs Disposition per primary service Follows with Dr Theodore for routine care Pt was seen and care coordinated with Dr Garcia. See addendum Thank you for this consultation. We will follow the patient with you during their hospital stay. You can reach a member of the [facility] Team 05/05 [facility] Supervising Physician Co-Signing Physician Notes Attending Addendum: Case reviewed with the advanced practitioner. I have personally performed a history and physical examination on the patient. I have reviewed the advanced practitioner's documentation on the date of service referenced in note, and I agree with, and take responsibility for the plan of care. please refer to her notes for full details patient seen and examined, records reviewed by myself as well on exam, patient seen resting in bed, comfortable states he feels fine pain well controlled no chest pain, dyspnea, palpitations, dizziness no other symptoms VS noted and reviewed oriented x3 , not in distress, speaks in sentences with no effort nor accessory muscle use normal rate, regular rhythm, no murmurs clear breath sounds bilaterally non distended, soft, nontender no bipedal edema, erythema, warmth no neuro deficits all labs, imaging noted and reviewed ASSESSMENT AND PLAN> s/p Lumbar Decompression Surgery stable overall pain control DVT prophylaxis continue medications for HLD, GERD, RLS, Mood other diagnoses and plan of care as per advanced practitioner's notes I spent a total of 20 minutes coordinating, documenting, and providing care for this patient, excluding time spent in the performance of separately billed services or time spent by another provider/QHP. Adonay Garcia MD History of Present Illness Requesting Physician: Dr Gaming Reason for Consultation: Post op medical management Attending Physician: Fareed Gaming, DO History of Present Illness Patient is 75 year old male with PMH dyslipidemia, RLS, GERD, depression, h/o prostate CA s/p 2006, s/p surgery, xrt seen in medical consultation s/p L1-L3 decompression and fusion today by Dr Gaming. Post op patient reports is doing well and reports pain in controlled. Has not urinated yet post-op. Denies fever/chills, diaphoresis, N/V/D/C, BERRY, dizziness, CP, SOB, cough, rhinorrhea, abdominal pain, paresthesias, extremity weakness, rashes, urinary symptoms. Allergies Allergy/AdvReac Type Severity Reaction Status Date / Time cyclobenzaprine AdvReac Unknown Hallucinati Verified 09/21/25 09:05 [From Flexeril] ons Home Medications Medication Instructions Recorded Confirmed Type famotidine 20 mg tablet (Acid 20 mg PO QAM 10/23/21 09/21/25 History Construction Project Manager (famotidine)) atorvastatin 80 mg tablet 80 mg PO QAM 08/27/22 09/21/25 History cholecalciferol (vitamin D3) 25 25 mcg PO UD 08/27/22 09/21/25 History mcg (1,000 unit) tablet (Vitamin D3) cyanocobalamin (vitamin B-12) 2,500 mcg sublingual QAM 08/27/22 09/21/25 History 2,500 mcg sublingual tablet (Vitamin B-12) ezetimibe 10 mg tablet 10 mg PO QAM 08/27/22 09/21/25 History multivitamin 1 tab PO QAM 08/27/22 09/21/25 History omega-3 fatty acids-vitamin E 1 cap PO QAM 08/27/22 09/21/25 History 1,000 mg capsule sertraline 100 mg tablet 100 mg PO QAM 08/27/22 09/21/25 History ropinirole 0.5 mg tablet 0.5 mg PO TID 08/19/23 09/21/25 History ibuprofen 200 mg tablet 200 mg PO BID 08/23/25 09/21/25 History Patient History Medical History Lumbar herniated disc History of prostate cancer Dx ~2006, s/p surgery (2006) and 38 radiation treatments (2018) GERD (gastroesophageal reflux disease) Hyperlipidemia Arm numbness Improved after cervical surgery Hx of hearing loss B/L hearing aids History of chronic back pain Anxiety and depression History of restless legs syndrome Stable Surgical History History of fusion of cervical spine C4-C7 (2016) C3-4 ACDF: Grade view 1, Glidescope#4, ETT 7.5, [facility] (09/09/23) History of lumbar spinal fusion 09/2022 L3-S1 History of cataract surgery R/L Hx of vasectomy Hx of repair of left rotator cuff 2018 Hx of colonoscopy History of prostatectomy (12/2006) Family History Other No family history of adverse response to anesthesia Social History Smoking Status: Never smoker Second Hand Exposure: No; Do You Dip or Chew Tobacco: No; Hx Alcohol Use: No Hx Substance Use: No Preferred Language: Peruvian Communication Ability: Effective Communication Ability Comment: pt is [facility] Hi Lift Operator Required: No Beliefs That Will Affect Care: None Current Living Situation: Spouse Feels Safe at Home: Yes Assistive Devices: Glasses and Hearing Aid - Bilateral Review of Systems Review of Systems: All systems reviewed & are unremarkable except as noted in HPI & below Physical Exam Physical Exam: General: no distress, WDWN Head: normocephalic, atraumatic Eyes: conjunctiva non-injected, anicteric ENT: normal inspection external ears, nose, mucous membranes moist Neck: supple, trachea midline Lungs: clear, no respiratory distress, no wheezing/rhonchi/rales CV: RRR, no murmur, no pretibial edema Abd: normal BS, soft, non-tender Back: surgical dressing in place. ALBERTO drain in place with serosanguineous drainage; pedal pushes and pulls intact bilaterally Ext: no cyanosis, no calf tenderness Neuro: A&O x 3, no focal deficits noted, normal affect Skin: warm, dry Results & Data Vital Signs (Past 12 Hours) Vital Signs Temp Pulse Pulse Resp BP Pulse Ox O2 Del Method 09/21/25 14:10 36.6 C 75 16 157/85 H 96 Nasal Cannula 09/21/25 14:00 79 16 155/82 H 97 Nasal Cannula 09/21/25 13:50 77 21 150/86 H 96 Nasal Cannula 09/21/25 13:40 82 17 133/94 92 Room Air 09/21/25 13:30 71 13 140/81 91 Room Air 09/21/25 13:20 75 14 151/81 H 94 Room Air 09/21/25 13:10 72 16 143/81 H 98 Oxymask 09/21/25 13:00 66 14 144/83 H 100 Oxymask 09/21/25 12:50 67 12 139/82 99 Oxymask 09/21/25 12:41 36.0 C L 65 10 L 126/72 97 Oxymask 09/21/25 09:13 36.6 C 59 L 20 166/92 H 97 Room Air O2 Flow Rate 09/21/25 14:10 2 09/21/25 14:00 2 09/21/25 13:50 2 09/21/25 13:40 09/21/25 13:30 09/21/25 13:20 09/21/25 13:10 2 09/21/25 13:00 2 09/21/25 12:50 4 09/21/25 12:41 6 09/21/25 09:13
[2025-09-21] MEDS: SODIUM CHLORIDE 0.9% 1,000 ML IV SCH (15:29)
--- NOTE | 2025-09-21 16:11 | Anesthesiology Progress Note ---
Date of Service September 21, 2025 Anesthesia Post Procedure Vital Signs Vital Signs: Temp Pulse Pulse Resp BP Pulse Ox O2 Del Method 09/21/25 15:55 36.8 C 18 123/74 91 Room Air 09/21/25 15:18 36.8 C 92 H 18 124/71 94 Nasal Cannula 09/21/25 14:58 88 18 148/81 H 95 Nasal Cannula 09/21/25 14:20 Nasal Cannula 09/21/25 14:10 36.6 C 75 16 157/85 H 96 Nasal Cannula 09/21/25 14:00 79 16 155/82 H 97 Nasal Cannula 09/21/25 13:50 77 21 150/86 H 96 Nasal Cannula 09/21/25 13:40 82 17 133/94 92 Room Air 09/21/25 13:30 71 13 140/81 91 Room Air 09/21/25 13:20 75 14 151/81 H 94 Room Air 09/21/25 13:10 72 16 143/81 H 98 Oxymask 09/21/25 13:00 66 14 144/83 H 100 Oxymask 09/21/25 12:50 67 12 139/82 99 Oxymask 09/21/25 12:41 36.0 C L 65 10 L 126/72 97 Oxymask 09/21/25 09:13 36.6 C 59 L 20 166/92 H 97 Room Air O2 Flow Rate 09/21/25 15:55 09/21/25 15:18 1.5 09/21/25 14:58 1.5 09/21/25 14:20 2 09/21/25 14:10 2 09/21/25 14:00 2 09/21/25 13:50 2 09/21/25 13:40 09/21/25 13:30 09/21/25 13:20 09/21/25 13:10 2 09/21/25 13:00 2 09/21/25 12:50 4 09/21/25 12:41 6 09/21/25 09:13 Transfer of Care Handoff Completed per policy Notes Mental Status: alert / awake / arousable and participated in evaluation Patient Amnestic to Procedure: Yes Nausea / Vomiting: adequately controlled Pain: adequately controlled Airway Patency, RR, SpO2: stable & adequate BP & HR: stable & adequate Hydration State: stable & adequate Anesthetic Complications: no major complications apparent and Pt Satisfied with anesthetic care
[2025-09-21] MEDS: DOCUSATE SODIUM/SENNA 50/8.6MG TAB PO SCH (21:32)
[2025-09-22] MEDS: ACETAMINOPHEN 500 MG TAB PO PRN (03:07)
[2025-09-22] MEDS: POLYETHYLENE (MIRALAX) 17 GM PACK PO SCH (05:15)
[2025-09-22] MEDS: MULTIVITAMIN TAB PO SCH (07:27)
[2025-09-22 07:28] LABS: Hematocrit (blood only) 36.6 % (42.0-52.0); Hemoglobin 12.8 g/dL (14.0-18.0); Immature Granulocytes # (auto) 0.04 K/uL (0.01-0.20); Immature Granulocytes % (auto) 0.3 %; Mean Corpuscular Hemoglobin 31.8 pg (25.0-34.0); Mean Corpuscular Volume 91.0 fL (80.0-100.0); Platelet Count 260 K/uL (130-400); RDW Standard Deviation 43.6 fL (36.4-46.3); Red Blood Count 4.02 M/uL (4.70-6.10); White Blood Count 15.25 K/ul (4.8-10.8)
[2025-09-22] MEDS: dexAMETHasone 6 MG in SYRINGE 0 ML IV SCH (07:28)
[2025-09-22] MEDS: CYANOCOBALAMIN (B-12) 2,500 MCG TABLET SL SCH (07:29)
[2025-09-22] MEDS: SERTRALINE HCL 100 MG TABLET PO SCH (07:29)
[2025-09-22] MEDS: EZETIMIBE 10 MG TAB PO SCH (07:29)
[2025-09-22] MEDS: ATORVASTATIN 40 MG TAB PO SCH (07:29)
[2025-09-22] MEDS: CHOLECALCIFEROL 25 MCG (1000 UNITS) TAB PO SCH (07:29)
[2025-09-22] MEDS: FAMOTIDINE 20 MG TAB PO SCH (07:57)
[2025-09-22 08:17] LABS: Anion Gap 7.0 (3-11); Blood Urea Nitrogen 18.0 mg/dl (6-23); Calcium 8.8 mg/dl (8.6-10.3); Carbon Dioxide 28.0 mmol/L (21-32); Chloride 101.0 mmol/L (98-107); Creatinine Clr Calc Pharmacy 85.8 ml/min; Glucose 114.0 mg/dl (70-99(Fasting)); Potassium 4.2 mmol/L (3.5-5.1); Sodium 136.0 mmol/L (136-145)
--- NOTE | 2025-09-22 10:10 | Orthopedic Progress Note ---
Date of Service September 22, 2025 Assessment & Plan (1) Other spondylosis with radiculopathy, lumbar region: Plan: At this time continue physical therapy monitor safety operatively discharge home in next few days. Admission and Anticipated Discharge Date Admission Date: September 21, 2025 Subjective Patient's pain is well-controlled. He states his leg symptoms are improved. He is tolerating therapy. Physical Exam Physical Exam: Patient is in the chair at the bedside. He is comfortable. Distracted testing. Results & Data Vital Signs (Past 12 Hours) Vital Signs Temp Pulse Resp BP Pulse Ox O2 Del Method 09/22/25 08:09 36.8 C 64 18 136/76 96 Room Air 09/22/25 02:00 36.7 C 77 18 128/71 94 Room Air
--- NOTE | 2025-09-22 10:51 | Hospitalist Progress Note ---
Date of Service September 22, 2025 Assessment & Plan (1) Other spondylosis with radiculopathy, lumbar region: (2) S/P spinal surgery: (3) Acute blood loss anemia: (4) Hyperlipemia: (5) GERD (gastroesophageal reflux disease): (6) History of restless legs syndrome: (7) Anxiety and depression: Plan 75 year old male with PMH significant for dyslipidemia, RLS, GERD, depression, h/o prostate CA s/p surgery and radiation (2006), and lumbar spondylosis and stenosis with radiculopathy who underwent lumbar decompression with bilateral medial facetectomies and foraminotomies and fusion of L2-L3 on 09/21/[address] Gaming. We have been consulted for post operative medical management. Lumbar spondylosis with radiculopathy s/p lumbar fusion POD#1 lumbar decompression with bilateral medial facetectomies and foraminotomies and fusion of L2-L3 on 09/21/[address] Gaming Activity level, pain control, antibiotics, DVT prophylaxis, bowel regimen, wound/drain care per primary team Encourage incentive spirometer PT eval today recommending rehab at this time Acute blood loss anemia Preop Hgb 14.8-> 12.8 today EBL 200cc and ALBERTO drain output 510cc so far Patient asymptomatic Monitor CBC Hyperlipemia Continue atorvastatin and ezetimibe GERD Continue famotidine RLS Continue ropinirole Anxiety and depression Continue sertraline DVT Prophylaxis: TEDs/SCDs per primary team Code Status: FULL CODE PCP: Kyree Theodore Disposition: per primary team Thank you for this consultation. We will continue to follow this patient with you. A member of the [facility]ist team is available 05/05 via the role in [employer] - please don't hesitate to reach out with questions. Patient seen in collaboration with Dr. Shirley. Please see addendum. I spent a total of 60 minutes coordinating, documenting and providing care for this patient excluding time spent in the performance of separately billed serv ices or time spent by another provider/QHP. Admission and Anticipated Discharge Date Admission Date: September 21, 2025 Supervising Physician Co-Signing Physician Notes Patient was seen and examined at bedside as a follow-up of medical management status post lumbar decompression and fusion. Patient is hemodynamically stable and reports BLE radicular symptoms improvement after the surgery. Patient denies any complaints, reports operative site pain under control. Patient reports moving bowel. On exam: Low back dressing without soakage. ALBERTO drain with minimal serosanguineous collection noted. Rest of the examination as above. Total time spent independently: 18 minutes. I have seen and examined the patient and have discussed the case with the provider above. I agree with the assessment and plan as stated. Subjective Patient seen sitting in chair Reports pain is well controlled, denies leg weakness or numbness/tingling Denies dizziness, chest pain, SOB, abdominal pain, N/V/D Review of Systems Review of Systems: All systems reviewed & are unremarkable except as noted in HPI & below Physical Exam Physical Exam: General/Psych: WD/WN, sitting up in chair, NAD, hard of hearing Head: normocephalic, atraumatic Eyes: normal inspection, PERRL, conjunctivae pink, anicteric sclerae Neck: normal visual inspection, trachea midline Respiratory: normal respiratory effort, lungs clear to auscultation, no wheeze/rales/rhonchi, no accessory muscle use Cardiovascular: regular rate and rhythm, no murmur/rub/gallop Extremities: no cyanosis or clubbing, normal peripheral pulses, no BLE edema, sensation intact BLE, TEDs in place Abdomen/GI: normal bowel sounds, soft, nontender Neurologic/MSK: A+Ox3, motor strength 5/5, moves all extremities Skin: no rashes, normal color, warm and dry, island dressing c/d/i, ALBERTO drain with serosanguineous output Results & Data Results & Data Vital Signs (Past 12 Hours) Vital Signs Temp Pulse Resp BP Pulse Ox O2 Del Method 09/22/25 08:09 36.8 C 64 18 136/76 96 Room Air 09/22/25 02:00 36.7 C 77 18 128/71 94 Room Air Laboratory Results Short CBC 09/22/25 Range/Units 06:53 WBC 15.25 H (4.8-10.8) K/ul Hgb 12.8 L (14.0-18.0) g/dL Hct 36.6 L (42.0-52.0) % Plt Count 260 (130-400) K/uL BMP 09/22/25 06:53 Sodium 136 Potassium 4.2 Chloride 101 Carbon Dioxide 28 BUN 18 Creatinine 0.78 Glucose 114 H Calcium 8.8 I have independently reviewed and interpreted patient's labs including CBC and BMP. Medications Administered Current Inpatient Medications Acetaminophen (Acetaminophen 500 Mg Tab) 1,000 mg PO Q8H PRN PRN Reason: MILD Pain (1,2,3) & Pre PT Stop: 10/21/25 14:31 Last Admin: 09/22/25 03:07 Dose: 1,000 mg Al Hydrox/Mg Hydrox/Simethicone (Aluminum/Magnesium Susp 30 Ml Udc) 30 ml PO Q6H PRN PRN Reason: Dyspepsia Stop: 10/21/25 14:31 Atorvastatin Calcium (Atorvastatin 40 Mg Tab) 80 mg PO [facility] Stop: 10/22/25 08:59 Last Admin: 09/22/25 07:29 Dose: 80 mg Bisacodyl (Bisacodyl 10 Mg Supp) 10 mg [place] DAILY PRN PRN Reason: Constipation Stop: 10/21/25 14:31 Cyanocobalamin (Cyanocobalamin (B-12) 2,500 Mcg Tablet) 2,500 mcg SL [facility] Stop: 10/22/25 08:59 Last Admin: 09/22/25 07:29 Dose: 2,500 mcg Diphenhydramine HCl (Diphenhydramine Capsule 25 Mg Cap) 25 mg PO Q6H PRN PRN Reason: Allergic Rhinitis/Insomnia Stop: 10/21/25 14:31 Ezetimibe (Ezetimibe 10 Mg Tab) 10 mg PO [facility] Stop: 10/22/25 08:59 Last Admin: 09/22/25 07:29 Dose: 10 mg Famotidine (Famotidine 20 Mg Tab) 20 mg PO [facility] Stop: 10/22/25 08:59 Last Admin: 09/22/25 07:57 Dose: 20 mg Famotidine (Famotidine 20 Mg Tab) 20 mg PO Q12H PRN PRN Reason: Dyspepsia Stop: 10/21/25 14:31 Hydromorphone HCl (Hydromorphone Inj 0.5 Mg/0.5 Ml Syr) 0.5 mg IV Q3H PRN PRN Reason: MODERATE Pain(4,5,6)/Pre PT Stop: 10/05/25 14:31 Hydromorphone HCl (Hydromorphone Inj 1 Mg/Ml Syringe) 1 mg IV Q3H PRN PRN Reason: SEVERE Pain (7,8,9,10) Stop: 10/05/25 14:31 Hydroxyzine HCl (Hydroxyzine Hcl 25 Mg Tab) 25 mg PO Q8H PRN PRN Reason: Anxiety Stop: 10/21/25 14:31 Acetaminophen (Ofirmev) 1,000 mg in 100 mls @ 400 mls/hr IV Q8H PRN PRN Reason: MILD Pain (1,2,3) & Pre PT Stop: 09/22/25 14:32 Cefazolin Sodium (Ancef 2000mg) 2,000 mg in 15 mls @ 3.75 mls/min IV Q8H [facility] Stop: 09/24/25 10:48 Last Admin: 09/22/25 03:02 Dose: 3.75 mls/min Promethazine HCl (Phenergan) 12.5 mg in 50.5 mls @ 202 mls/hr IV Q6H PRN PRN Reason: Nausea And Vomiting Stop: 10/21/25 14:31 Lorazepam 0.5 mg/ Syringe 0.5 mls @ 2 mls/min IV Q8H PRN PRN Reason: Sedation/Anxiety Stop: 10/21/25 14:31 Dexamethasone 6 mg/ Syringe 1.5 mls @ 1 mls/min IV DAILY [facility] Stop: 09/24/25 09:02 Last Admin: 09/22/25 07:28 Dose: 1 mls/min Influenza Virus Vaccine Quadrival (Do Not Administer Flu Vaccine) 1 each N/A PRN PRN PRN Reason: Notification Stop: 10/21/25 14:31 Lorazepam (Lorazepam 0.5 Mg Tab) 0.5 mg PO Q8H PRN PRN Reason: Sedation/Anxiety Stop: 10/21/25 14:31 Magnesium Hydroxide (Magnesium Hydroxide Susp 30 Ml Udc) 30 ml PO Q24H PRN PRN Reason: Constipation Stop: 10/21/25 14:31 Metoclopramide HCl (Metoclopramide Hcl Inj 5 Mg/Ml 2 Ml Vial) 10 mg IV Q6H PRN PRN Reason: Nausea &/or Vomiting Stop: 10/21/25 14:31 Multivitamins (Multivitamin Tab) 1 tab PO [facility] Stop: 10/22/25 08:59 Last Admin: 09/22/25 07:27 Dose: 1 tab Naloxone HCl (Naloxone Hcl 0.4 Mg/1 Ml Vial/Carp) 0.1 mg IV Q5M PRN PRN Reason: Oversedation/Resp depression Stop: 10/21/25 14:31 Ondansetron HCl (Ondansetron Inj 2 Mg/Ml 2 Ml Vial) 4 mg IV Q6H PRN PRN Reason: Nausea &/or Vomiting Stop: 10/21/25 14:31 Ondansetron HCl (Ondansetron 4 Mg Od Tab) 4 mg PO Q6H PRN PRN Reason: Nausea Stop: 10/21/25 14:31 Oxycodone HCl (Oxycodone Hcl Ir 5 Mg Tab (Immediate Release)) 5 - 10 mg PO Q4H PRN PRN Reason: MOD/SEV Pain & Pre PT Stop: 10/05/25 14:31 Pneumococcal Polyvalent Vaccine (Do Not Administer Pneumococcal Vaccine) 1 each N/A PRN PRN PRN Reason: Notification Stop: 10/21/25 14:31 Polyethylene Glycol (Polyethylene (Miralax) 17 Gm Pack) 17 gm PO Q6 [facility] Stop: 10/22/25 05:59 Last Admin: 09/22/25 05:15 Dose: 17 gm Ropinirole HCl (Ropinirole Hcl 0.25 Mg Tablet) 0.5 mg PO TID [facility] Stop: 10/21/25 14:44 Last Admin: 09/22/25 07:28 Dose: 0.5 mg Senna/Docusate Sodium (Docusate Sodium/Senna 50/8.6mg Tab) 2 tab PO HS [facility] Stop: 10/21/25 20:59 Last Admin: 09/21/25 21:32 Dose: 2 tab Sertraline HCl (Sertraline Hcl 100 Mg Tablet) 100 mg PO QAM [facility] Stop: 10/22/25 08:59 Last Admin: 09/22/25 07:29 Dose: 100 mg Sodium Biphosphate/Sodium Phosphate (Sod Phosphate/Sod Biphosphate Enema 132 Ml Btl) 132 ml [place] ONE PRN PRN Reason: Constipation Stop: 10/21/25 14:31 Tramadol HCl (Tramadol Hcl 50 Mg Tablet) 50 - 100 mg PO Q4H PRN PRN Reason: MOD/SEV Pain & Pre PT Stop: 10/21/25 14:31 Vitamin D (Cholecalciferol 25 Mcg (1000 Units) Tab) 25 mcg PO DAILY [facility] Stop: 10/22/25 08:59 Last Admin: 09/22/25 07:29 Dose: 25 mcg
[2025-09-23] MEDS: diphenhydrAMINE Capsule 25 MG CAP PO PRN (00:29)
--- NOTE | 2025-09-23 07:16 | Hospitalist Progress Note ---
Date of Service September 23, 2025 Assessment & Plan (1) Other spondylosis with radiculopathy, lumbar region: (2) S/P spinal surgery: (3) Acute blood loss anemia: (4) Hyperlipemia: (5) GERD (gastroesophageal reflux disease): (6) History of restless legs syndrome: (7) Anxiety and depression: Plan 75 year old male with PMH significant for dyslipidemia, RLS, GERD, depression, h/o prostate CA s/p surgery and radiation (2006), and lumbar spondylosis and stenosis with radiculopathy who underwent lumbar decompression with bilateral medial facetectomies and foraminotomies and fusion of L2-L3 on 09/21/[address] Gaming. We have been consulted for post operative medical management. Lumbar spondylosis with radiculopathy s/p lumbar fusion POD#2 lumbar decompression with bilateral medial facetectomies and foraminotomies and fusion of L2-L3 on 09/21/[address] Gaming Activity level, pain control, antibiotics, DVT prophylaxis, bowel regimen, wound/drain care per primary team Encourage incentive spirometer PT recommending rehab at this time due to confusion Delirium Patient A&Ox3 but convinced that his when she did not Likely acute delirium secondary to benadryl administration overnight Discontinue benadryl and avoid benzos/narcotics Delirium precautions Acute blood loss anemia Preop Hgb 14.8-> 12.8-> 13.1 today EBL 200cc and ALBERTO drain output 730cc so far Patient asymptomatic Monitor CBC Hyperlipemia Continue atorvastatin and ezetimibe GERD Continue famotidine RLS Continue ropinirole Anxiety and depression Continue sertraline DVT Prophylaxis: TEDs/SCDs per primary team Code Status: FULL CODE PCP: Kyree Theodore Disposition: per primary team Thank you for this consultation. We will continue to follow this patient with you. A member of the [facility]ist team is available 05/05 via the role in [employer] - please don't hesitate to reach out with questions. Patient seen in collaboration with Dr. Shirley. Please see addendum. I spent a total of 50 minutes coordinating, documenting and providing care for this patient excluding time spent in the performance of separately billed services or time spent by another provider/QHP. Admission and Anticipated Discharge Date Admission Date: September 21, 2025 Supervising Physician Co-Signing Physician Notes Patient was seen and examined at bedside as a follow-up of medical management status post lumbar decompression and fusion. Patient is hemodynamically stable and reports BLE radicular symptoms improvement after the surgery. Patient denies any complaints, reports operative site pain under control. Patient reports moving bowel. Patient noted to be confused today likely secondary to Benadryl use overnight. Avoid benzo/Benadryl/narcotics. Continue to monitor. Patient is hemodynamically stable and no signs of infection. On exam: Low back dressing without soakage. ALBERTO drain with minimal serosanguineous collection noted. Rest of the examination as above. Total time spent independently: 18 minutes. I have seen and examined the patient and have discussed the case with the provider above. I agree with the assessment and plan as stated. Subjective Patient seen resting in his chair Denies any back or leg pain Denies dizziness, chest pain, SOB, abdominal pain, N/V/D Confused and incorrectly believing that his overnight Review of Systems Review of Systems: All systems reviewed & are unremarkable except as noted in HPI & below Physical Exam Physical Exam: General/Psych: WD/WN, sitting up in chair, NAD, hard of hearing Head: normocephalic, atraumatic Eyes: normal inspection, PERRL, conjunctivae pink, anicteric sclerae Neck: normal visual inspection, trachea midline Respiratory: normal respiratory effort, lungs clear to auscultation, no wheeze/rales/rhonchi, no accessory muscle use Cardiovascular: regular rate and rhythm, no murmur/rub/gallop Extremities: no cyanosis or clubbing, normal peripheral pulses, no BLE edema, sensation intact BLE, TEDs in place Abdomen/GI: normal bowel sounds, soft, nontender Neurologic/MSK: A+Ox3, motor strength 5/5, moves all extremities Skin: no rashes, normal color, warm and dry, island dressing c/d/i, ALBERTO drain with serosanguineous output Results & Data Results & Data Vital Signs (Past 12 Hours) Vital Signs Temp Pulse Resp BP Pulse Ox O2 Del Method 09/22/25 19:39 36.5 C 63 17 148/74 H 95 Room Air Laboratory Results Short CBC 09/23/25 Range/Units 07:18 WBC 15.28 H (4.8-10.8) K/ul Hgb 13.1 L (14.0-18.0) g/dL Hct 38.2 L (42.0-52.0) % Plt Count 260 (130-400) K/uL BMP 09/23/25 07:18 Sodium 140 Potassium 3.7 Chloride 104 Carbon Dioxide 27 BUN 17 Creatinine 0.82 Glucose 95 Calcium 9.2 I have independently reviewed and interpreted patient's labs including CBC and BMP. Medications Administered Current Inpatient Medications Acetaminophen (Acetaminophen 500 Mg Tab) 1,000 mg PO Q8H PRN PRN Reason: MILD Pain (1,2,3) & Pre PT Stop: 10/21/25 14:31 Last Admin: 09/22/25 03:07 Dose: 1,000 mg Al Hydrox/Mg Hydrox/Simethicone (Aluminum/Magnesium Susp 30 Ml Udc) 30 ml PO Q6H PRN PRN Reason: Dyspepsia Stop: 10/21/25 14:31 Atorvastatin Calcium (Atorvastatin 40 Mg Tab) 80 mg PO [facility] Stop: 10/22/25 08:59 Last Admin: 09/23/25 08:25 Dose: 80 mg Bisacodyl (Bisacodyl 10 Mg Supp) 10 mg [place] DAILY PRN PRN Reason: Constipation Stop: 10/21/25 14:31 Cyanocobalamin (Cyanocobalamin (B-12) 2,500 Mcg Tablet) 2,500 mcg SL [facility] Stop: 10/22/25 08:59 Last Admin: 09/23/25 08:25 Dose: 2,500 mcg Diphenhydramine HCl (Diphenhydramine Capsule 25 Mg Cap) 25 mg PO Q6H PRN PRN Reason: Allergic Rhinitis/Insomnia Stop: 10/21/25 14:31 Last Admin: 09/23/25 00:29 Dose: 25 mg Ezetimibe (Ezetimibe 10 Mg Tab) 10 mg PO [facility] Stop: 10/22/25 08:59 Last Admin: 09/23/25 08:25 Dose: 10 mg Famotidine (Famotidine 20 Mg Tab) 20 mg PO [facility] Stop: 10/22/25 08:59 Last Admin: 09/23/25 08:25 Dose: 20 mg Famotidine (Famotidine 20 Mg Tab) 20 mg PO Q12H PRN PRN Reason: Dyspepsia Stop: 10/21/25 14:31 Hydromorphone HCl (Hydromorphone Inj 0.5 Mg/0.5 Ml Syr) 0.5 mg IV Q3H PRN PRN Reason: MODERATE Pain(4,5,6)/Pre PT Stop: 10/05/25 14:31 Hydromorphone HCl (Hydromorphone Inj 1 Mg/Ml Syringe) 1 mg IV Q3H PRN PRN Reason: SEVERE Pain (7,8,9,10) Stop: 10/05/25 14:31 Hydroxyzine HCl (Hydroxyzine Hcl 25 Mg Tab) 25 mg PO Q8H PRN PRN Reason: Anxiety Stop: 10/21/25 14:31 Cefazolin Sodium (Ancef 2000mg) 2,000 mg in 15 mls @ 3.75 mls/min IV Q8H [facility] Stop: 09/24/25 10:48 Last Admin: 09/23/25 11:42 Dose: 3.75 mls/min Promethazine HCl (Phenergan) 12.5 mg in 50.5 mls @ 202 mls/hr IV Q6H PRN PRN Reason: Nausea And Vomiting Stop: 10/21/25 14:31 Lorazepam 0.5 mg/ Syringe 0.5 mls @ 2 mls/min IV Q8H PRN PRN Reason: Sedation/Anxiety Stop: 10/21/25 14:31 Dexamethasone 6 mg/ Syringe 1.5 mls @ 1 mls/min IV DAILY [facility] Stop: 09/24/25 09:02 Last Admin: 09/23/25 08:38 Dose: 1 mls/min Influenza Virus Vaccine Quadrival (Do Not Administer Flu Vaccine) 1 each N/A PRN PRN PRN Reason: Notification Stop: 10/21/25 14:31 Lorazepam (Lorazepam 0.5 Mg Tab) 0.5 mg PO Q8H PRN PRN Reason: Sedation/Anxiety Stop: 10/21/25 14:31 Magnesium Hydroxide (Magnesium Hydroxide Susp 30 Ml Udc) 30 ml PO Q24H PRN PRN Reason: Constipation Stop: 10/21/25 14:31 Metoclopramide HCl (Metoclopramide Hcl Inj 5 Mg/Ml 2 Ml Vial) 10 mg IV Q6H PRN PRN Reason: Nausea &/or Vomiting Stop: 10/21/25 14:31 Multivitamins (Multivitamin Tab) 1 tab PO QAM [facility] Stop: 10/22/25 08:59 Last Admin: 09/23/25 08:25 Dose: 1 tab Naloxone HCl (Naloxone Hcl 0.4 Mg/1 Ml Vial/Carp) 0.1 mg IV Q5M PRN PRN Reason: Oversedation/Resp depression Stop: 10/21/25 14:31 Ondansetron HCl (Ondansetron Inj 2 Mg/Ml 2 Ml Vial) 4 mg IV Q6H PRN PRN Reason: Nausea &/or Vomiting Stop: 10/21/25 14:31 Ondansetron HCl (Ondansetron 4 Mg Od Tab) 4 mg PO Q6H PRN PRN Reason: Nausea Stop: 10/21/25 14:31 Oxycodone HCl (Oxycodone Hcl Ir 5 Mg Tab (Immediate Release)) 5 - 10 mg PO Q4H PRN PRN Reason: MOD/SEV Pain & Pre PT Stop: 10/05/25 14:31 Pneumococcal Polyvalent Vaccine (Do Not Administer Pneumococcal Vaccine) 1 each N/A PRN PRN PRN Reason: Notification Stop: 10/21/25 14:31 Ropinirole HCl (Ropinirole Hcl 0.25 Mg Tablet) 0.5 mg PO TID [facility] Stop: 10/21/25 14:44 Last Admin: 09/23/25 13:44 Dose: 0.5 mg Senna/Docusate Sodium (Docusate Sodium/Senna 50/8.6mg Tab) 2 tab PO HS [facility] Stop: 10/21/25 20:59 Last Admin: 09/22/25 19:44 Dose: 2 tab Sertraline HCl (Sertraline Hcl 100 Mg Tablet) 100 mg PO QAM [facility] Stop: 10/22/25 08:59 Last Admin: 09/23/25 08:25 Dose: 100 mg Sodium Biphosphate/Sodium Phosphate (Sod Phosphate/Sod Biphosphate Enema 132 Ml Btl) 132 ml [place] ONE PRN PRN Reason: Constipation Stop: 10/21/25 14:31 Tramadol HCl (Tramadol Hcl 50 Mg Tablet) 50 - 100 mg PO Q4H PRN PRN Reason: MOD/SEV Pain & Pre PT Stop: 10/21/25 14:31 Vitamin D (Cholecalciferol 25 Mcg (1000 Units) Tab) 25 mcg PO DAILY [facility] Stop: 10/22/25 08:59 Last Admin: 09/23/25 08:25 Dose: 25 mcg
[2025-09-23 07:38] LABS: Hematocrit (blood only) 38.2 % (42.0-52.0); Hemoglobin 13.1 g/dL (14.0-18.0); Mean Corpuscular Hemoglobin 30.9 pg (25.0-34.0); Mean Corpuscular Volume 90.1 fL (80.0-100.0); Platelet Count 260 K/uL (130-400); RDW Standard Deviation 43.4 fL (36.4-46.3); Red Blood Count 4.24 M/uL (4.70-6.10); White Blood Count 15.28 K/ul (4.8-10.8)
[2025-09-23 08:02] LABS: Anion Gap 9.0 (3-11); Blood Urea Nitrogen 17.0 mg/dl (6-23); Calcium 9.2 mg/dl (8.6-10.3); Carbon Dioxide 27.0 mmol/L (21-32); Chloride 104.0 mmol/L (98-107); Creatinine Clr Calc Pharmacy 81.6 ml/min; Glucose 95.0 mg/dl (70-99(Fasting)); Potassium 3.7 mmol/L (3.5-5.1); Sodium 140.0 mmol/L (136-145)
--- NOTE | 2025-09-23 10:57 | Orthopedic Progress Note ---
Date of Service September 23, 2025 Assessment & Plan (1) Other spondylosis with radiculopathy, lumbar region: Plan: At this time we will continue physical therapy monitor his progress. Disposition uncertain in light of his confusion. Admission and Anticipated Discharge Date Admission Date: September 21, 2025 Subjective Patient is sitting in the chair at the bedside. He appears comfortable. He is confused. Denies any back or leg pain. Physical Exam Physical Exam: Patient has consented testing. He is confused. Results & Data Vital Signs (Past 12 Hours) Vital Signs Temp Pulse Pulse Resp BP Pulse Ox O2 Del Method 09/23/25 08:34 36.7 C 62 21 159/77 H 94 Room Air 09/23/25 07:21 37.1 C 79 16 173/79 H 92 Room Air
[2025-09-23 22:33] VITALS: RESP 16
[2025-09-24 06:19] LABS: Hematocrit (blood only) 35.4 % (42.0-52.0); Hemoglobin 12.4 g/dL (14.0-18.0); Mean Corpuscular Hemoglobin 31.5 pg (25.0-34.0); Mean Corpuscular Volume 89.8 fL (80.0-100.0); Platelet Count 259 K/uL (130-400); RDW Standard Deviation 42.6 fL (36.4-46.3); Red Blood Count 3.94 M/uL (4.70-6.10); White Blood Count 12.22 K/ul (4.8-10.8)
[2025-09-24 06:42] LABS: Anion Gap 8.0 (3-11); Blood Urea Nitrogen 16.0 mg/dl (6-23); Calcium 8.9 mg/dl (8.6-10.3); Carbon Dioxide 26.0 mmol/L (21-32); Chloride 102.0 mmol/L (98-107); Creatinine Clr Calc Pharmacy 83.6 ml/min; Glucose 95.0 mg/dl (70-99(Fasting)); Potassium 3.6 mmol/L (3.5-5.1); Sodium 136.0 mmol/L (136-145)
[2025-09-24 07:28] VITALS: BP 164/88; PULSE 58; TEMP 98.1; O2SAT 93
[2025-09-24] MEDS: FAMOTIDINE 20 MG TAB PO PRN (08:44)
--- NOTE | 2025-09-24 10:07 | Discharge Summary ---
Date of Service September 24, 2025 Admission HPI Per Admitting Provider This is a 75-year-old male well-known to me the presents with worsening back and leg pain after failing course of nonoperative care is here for surgical invention. Principal Diagnosis Lumbar spondylosis with radiculopathy Discharge Data Allergies Allergy/AdvReac Type Severity Reaction Status Date / Time cyclobenzaprine AdvReac Unknown Hallucinati Verified 09/21/25 09:05 [From Flexeril] ons Consultations 09/21/25 14:32 Consult Hospitalist Routine Procedures Performed Operation Date: 09/21/25 09:55 Actual Procedures p L2-L3 Decompression and Fusion(Not Applicable) - Fareed Gaming DO Ordered Studies 09/21/25 09:55 FL lumbar spine 2-3V Routine Hospital Course (1) Other spondylosis with radiculopathy, lumbar region: Patient underwent lumbar decompression fusion tolerated this well was taken orthopedic for postoperative. Postop he progressed well with physical therapy. He did have approximately 48 hours of confusion. This resolved nicely. ALBERTO drain decreased appropriately. Pain well-controlled. Extra strength testing. Subsidy discharged home. Discharge orders and instructions are on the chart for further review. Total Time Total Time Spent Total Time Spent (In Minutes): 20 minutes Discharge Plan Discharge Items Patient Disposition: Home - Home Health Services Reason For Visit: Lumbar Radiculopathy, Other Spondylosis with Discharge Diagnosis: Lumbar spondylosis with radiculopathy Activity: As commented below Non-emergency contact: Primary Care Provider Call non-emergency contact if: you have any medication questions Follow-up/Referrals: Kyree Theodore MD [Primary Care Provider] - Diet: Regular Addtl Attending Provider Instructions: ACTIVITY RECOMMENDATIONS: SELF CARE INSTRUCTIONS AFTER THORACIC/LUMBAR FUSIONS 1. You may walk to your tolerance. It is good exercise for your legs and back. Expect some back and intermittent leg aches and pains. 2. You may perform "counter-top" level activities (make a sandwich, jodie with a project, etc.). 3. No bending or lifting of more than 10 pounds or back twisting of any nature (roll like a log when turning in bed). 4. You may ride in a car for 20-30 minutes at a time. No driving until after your first visit with your doctor. 5. Frequent changes of position and restricting sitting to 30 minutes at a time will help limit the amount of back spasms and stiffness you may experience. 6. You may discontinue the use of ambulatory aids (cane, crutches, etc.) once your strength and confidence allow. 7. You may milk inspector the shower and let water strike your incision when you arrive home at least once daily. Do not take a tub bath, sit in a hot tub or go into a swimming pool until after your first recheck in the office. 8. You may resume previous diet. SPECIAL CARE INSTRUCTIONS: VERY IMPORTANT TO READ AND REVIEW A. Your surgical incision has been closed with a cosmetic suture under the skin that will dissolve in about 6 weeks. In 14 days, you can use a pair of clean scissors and cut the suture that is left outside of the skin at the ends of your incision. 1. The small skin tapes can be removed 7 days after surgery if they have not fallen off by that point. 2. You may keep the wound open to air as much as possible to promote healing after post-op day number 5 unless told otherwise by your doctor. 3. If you think the wound looks like it is becoming infected (redness or worsening drainage) and/or you are experiencing fever, chill or worsening back pain and muscle spasms, contact the office so that we may evaluate you as soon as possible. B. Complications are uncommon, but please contact us if you have any signs or symptoms of: 1. wound infection (fever higher than 102.5 degrees F, redness, separation of wound, drainage, or increasing pain from the incision) 2. blood clots in legs (pain, swelling, redness and warmth in legs) 3. urinary tract infection (fever higher than 102.5 degrees F, burning upon urination or increased frequency of urination) 4. nerve problems (inability to walk on your toes or heels, numbness, loss of bowel or bladder control) 5. any other symptoms that concern you C. Please call the office at if you have any concerns or questions about your operation or recovery. D. No smoking! Smoking drastically decreases the chance of a solid fusion. E. Do not take any anti-inflammatory medications (Indocin, Advil, Motrin, Aspirin, Naprosyn, etc.) as these may inhibit the chance of a solid fusion. Tylenol is okay to take for pain. MANAGING PAIN AFTER SPINAL SURGERY 1. Narcotic medication is intended for short-term use and will be provided for surgical pain. Surgical pain usually lasts for a period of 4-6 weeks. Narcotic medication includes Percocet, Vicodin, Darvocet, Tylenol #3 or Lortab. 2. Longer-term pain is more appropriately treated with non-narcotic medication such as Tylenol ES. 3. Muscle spasm is not appropriately treated with narcotics. Muscle relaxers such as Soma, Flexeril or Skelaxin can be used along with Tylenol ES. 4. Remember that we all live with some "aches and pains". This is not unusual or uncommon after an injury or as we get older. a. Back pain is expected and may include muscle spasms for 4 to 6 weeks after surgery. The pain should gradually improve. If the pain worsens for no apparent reason, please contact the office. b. Intermittent leg pain may also be experienced and should not be concerned about unless it worsens for no apparent reason. If so, please contact the office. 5. We will provide appropriate medication within the normal guidelines of their prescribed use. We will also be very cautious and aware of potential abuse and extended duration of patients' medication needs. a. Pain medications are for your comfort and to assist with sleep and rest so that the tissue can heal. They are not provided in order to return to normal activity and should not be used through the day. To do so or worsening pain at night can result from ongoing tissue damage and development of tolerance to the prescribed medicine. 6. Please allow 2-3 days to process refills. Prescriptions will not be mailed but must be picked up at the office. FOLLOW UP VISIT: Keep your scheduled follow-up appointment. Any questions, please call the office at . Pending Studies at Discharge: No Stand-Alone Forms: My Re[facility], Smoking Cessation Medications and NC Order Prescriptions: New tramadol 50 mg tablet 50 mg PO Q6H PRN (Reason: pain, moderate) Qty: 30 0RF oxycodone 5 mg tablet 5 mg PO Q6H PRN (Reason: pain) Qty: 30 0RF Continued famotidine [Acid Hyperbaric Technologist (famotidine)] 20 mg tablet 20 mg PO QAM ropinirole 0.5 mg Tablet 0.5 mg PO TID multivitamin Tablet 1 tab PO QAM atorvastatin 80 mg Tablet 80 mg PO QAM cyanocobalamin (vitamin B-12) [Vitamin B-12] 2,500 mcg Tablet, Sublingual 2,500 mcg SUBLINGUAL QAM sertraline 100 mg Tablet 100 mg PO QAM ezetimibe 10 mg Tablet 10 mg PO QAM omega-3 fatty acids-vitamin E 1,000 mg Capsule 1 cap PO QAM cholecalciferol (vitamin D3) [Vitamin D3] 25 mcg (1,000 unit) Tablet 25 mcg PO UD Patient Comments: current 1000 IU , instructed 2 weeks prior to surgery to take 5000 IU daily and have post op dose instructions (instructions from surgeon office). ibuprofen 200 mg Tablet 200 mg PO BID Discharge Orders: Discharge Order (Routine); Ordered 09/24/25 Ordered By: Fareed Gaming Admission Data Admit Date/Time: 09/21/25 12:35 Attending Provider: Fareed Gaming Admit Provider: Fareed Gaming Primary Care Provider: Kyree Theodore Other Providers: [facility]; [facility]; Marilee Shirley
--- NOTE | 2025-09-24 11:06 | Hospitalist Progress Note ---
Date of Service September 24, 2025 Assessment & Plan (1) Other spondylosis with radiculopathy, lumbar region: (2) S/P spinal surgery: (3) Acute blood loss anemia: (4) Hyperlipemia: (5) GERD (gastroesophageal reflux disease): (6) History of restless legs syndrome: (7) Anxiety and depression: Plan 75 year old male with PMH significant for dyslipidemia, RLS, GERD, depression, h/o prostate CA s/p surgery and radiation (2006), and lumbar spondylosis and stenosis with radiculopathy who underwent lumbar decompression with bilateral medial facetectomies and foraminotomies and fusion of L2-L3 on 09/21/[address] Gaming. We have been consulted for post operative medical management. Lumbar spondylosis with radiculopathy s/p lumbar fusion POD#3 lumbar decompression with bilateral medial facetectomies and foraminotomies and fusion of L2-L3 on 09/21/[address] Gaming Pain is controlled DC to home today per primary team Delirium Patient A&Ox3 with periods of confusion Likely acute delirium secondary to benadryl administration while inpatient Advised tylenol for pain control and oxycodone only if severe pain and try to avoid if possible Acute blood loss anemia Preop Hgb 14.8-> 12.8-> 13.1 Patient asymptomatic Hyperlipemia Continue atorvastatin and ezetimibe GERD Continue famotidine RLS Continue ropinirole Anxiety and depression Continue sertraline DVT Prophylaxis: TEDs/SCDs per primary team Code Status: FULL CODE PCP: Kyree Theodore Disposition: DC to home per primary team Thank you for this consultation. We will continue to follow this patient with you. A member of the [facility] Hospitalist team is available 05/05 via the role in [employer] - please don't hesitate to reach out with questions. Patient seen in collaboration with Dr. Shirley. Please see addendum. I spent a total of 45 minutes coordinating, documenting and providing care for this patient excluding time spent in the performance of separately billed services or time spent by another provider/QHP. Admission and Anticipated Discharge Date Admission Date: September 21, 2025 Supervising Physician Co-Signing Physician Notes Patient was seen and examined at bedside as a follow-up of medical management status post lumbar decompression and fusion. Patient is hemodynamically stable and reports BLE radicular symptoms improvement after the surgery. Patient denies any complaints, reports operative site pain under control. Patient reports moving bowel. Patient seems much more improved mentation. Avoid benzo/Benadryl/narcotics. pt's at bedside educated on delirium and how to avoid. Patient is hemodynamically stable and no signs of infection. On exam: Low back dressing without soakage. ALBERTO drain with minimal serosanguineo us collection noted. Rest of the examination as above. Total time spent independently: 12 minutes. I have seen and examined the patient and have discussed the case with the provider above. I agree with the assessment and plan as stated. Subjective Patient seen resting in his chair Denies any back or leg pain Denies dizziness, chest pain, SOB, abdominal pain, N/V/D Confusion is much better today Ready for discharge Review of Systems Review of Systems: All systems reviewed & are unremarkable except as noted in HPI & below Physical Exam Physical Exam: General/Psych: WD/WN, sitting up in chair, NAD, hard of hearing Head: normocephalic, atraumatic Eyes: normal inspection, PERRL, conjunctivae pink, anicteric sclerae Neck: normal visual inspection, trachea midline Respiratory: normal respiratory effort, lungs clear to auscultation, no wheeze/rales/rhonchi, no accessory muscle use Cardiovascular: regular rate and rhythm, no murmur/rub/gallop Extremities: no cyanosis or clubbing, normal peripheral pulses, no BLE edema, sensation intact BLE, TEDs in place Abdomen/GI: normal bowel sounds, soft, nontender Neurologic/MSK: A+Ox3, motor strength 5/5, moves all extremities Skin: no rashes, normal color, warm and dry, island dressing c/d/i, ALBERTO drain with serosanguineous output Results & Data Results & Data Vital Signs (Past 12 Hours) Vital Signs Temp Pulse Resp BP Pulse Ox O2 Del Method 09/24/25 07:27 36.7 C 58 L 16 164/88 H 93 Room Air Medications Administered Current Inpatient Medications Acetaminophen (Acetaminophen 500 Mg Tab) 1,000 mg PO Q8H PRN PRN Reason: MILD Pain (1,2,3) & Pre PT Stop: 10/21/25 14:31 Last Admin: 09/22/25 03:07 Dose: 1,000 mg Al Hydrox/Mg Hydrox/Simethicone (Aluminum/Magnesium Susp 30 Ml Udc) 30 ml PO Q6H PRN PRN Reason: Dyspepsia Stop: 10/21/25 14:31 Atorvastatin Calcium (Atorvastatin 40 Mg Tab) 80 mg PO [facility] Stop: 10/22/25 08:59 Last Admin: 09/24/25 08:39 Dose: 80 mg Bisacodyl (Bisacodyl 10 Mg Supp) 10 mg [place] DAILY PRN PRN Reason: Constipation Stop: 10/21/25 14:31 Cyanocobalamin (Cyanocobalamin (B-12) 2,500 Mcg Tablet) 2,500 mcg SL [facility] Stop: 10/22/25 08:59 Last Admin: 09/24/25 08:38 Dose: 2,500 mcg Ezetimibe (Ezetimibe 10 Mg Tab) 10 mg PO [facility] Stop: 10/22/25 08:59 Last Admin: 09/24/25 08:38 Dose: 10 mg Famotidine (Famotidine 20 Mg Tab) 20 mg PO [facility] Stop: 10/22/25 08:59 Last Admin: 09/24/25 08:48 Dose: 20 mg Famotidine (Famotidine 20 Mg Tab) 20 mg PO Q12H PRN PRN Reason: Dyspepsia Stop: 10/21/25 14:31 Last Admin: 09/24/25 08:44 Dose: 20 mg Promethazine HCl (Phenergan) 12.5 mg in 50.5 mls @ 202 mls/hr IV Q6H PRN PRN Reason: Nausea And Vomiting Stop: 10/21/25 14:31 Influenza Virus Vaccine Quadrival (Do Not Administer Flu Vaccine) 1 each N/A PRN PRN PRN Reason: Notification Stop: 10/21/25 14:31 Magnesium Hydroxide (Magnesium Hydroxide Susp 30 Ml Udc) 30 ml PO Q24H PRN PRN Reason: Constipation Stop: 10/21/25 14:31 Metoclopramide HCl (Metoclopramide Hcl Inj 5 Mg/Ml 2 Ml Vial) 10 mg IV Q6H PRN PRN Reason: Nausea &/or Vomiting Stop: 10/21/25 14:31 Multivitamins (Multivitamin Tab) 1 tab PO [facility] Stop: 10/22/25 08:59 Last Admin: 09/24/25 08:38 Dose: 1 tab Naloxone HCl (Naloxone Hcl 0.4 Mg/1 Ml Vial/Carp) 0.1 mg IV Q5M PRN PRN Reason: Oversedation/Resp depression Stop: 10/21/25 14:31 Ondansetron HCl (Ondansetron Inj 2 Mg/Ml 2 Ml Vial) 4 mg IV Q6H PRN PRN Reason: Nausea &/or Vomiting Stop: 10/21/25 14:31 Ondansetron HCl (Ondansetron 4 Mg Od Tab) 4 mg PO Q6H PRN PRN Reason: Nausea Stop: 10/21/25 14:31 Pneumococcal Polyvalent Vaccine (Do Not Administer Pneumococcal Vaccine) 1 each N/A PRN PRN PRN Reason: Notification Stop: 10/21/25 14:31 Ropinirole HCl (Ropinirole Hcl 0.25 Mg Tablet) 0.5 mg PO TID [facility] Stop: 10/21/25 14:44 Last Admin: 09/24/25 08:38 Dose: 0.5 mg Senna/Docusate Sodium (Docusate Sodium/Senna 50/8.6mg Tab) 2 tab PO HS [facility] Stop: 10/21/25 20:59 Last Admin: 09/23/25 20:31 Dose: 2 tab Sertraline HCl (Sertraline Hcl 100 Mg Tablet) 100 mg PO QAM [facility] Stop: 10/22/25 08:59 Last Admin: 09/24/25 08:39 Dose: 100 mg Sodium Biphosphate/Sodium Phosphate (Sod Phosphate/Sod Biphosphate Enema 132 Ml Btl) 132 ml NJ ONE PRN PRN Reason: Constipation Stop: 10/21/25 14:31 Vitamin D (Cholecalciferol 25 Mcg (1000 Units) Tab) 25 mcg PO DAILY [facility] Stop: 10/22/25 08:59 Last Admin: 09/24/25 08:38 Dose: 25 mcg
== END 2025-09-24 11:11 | disposition home or self-care (01) | DRG 402 ==
LOC: ASU 08:51 → 3N 12:35